=== PATIENT | male | born 1935 | race Caucasian/White ===

== ENCOUNTER 2017-10-05 13:05 | Inpatient (IN) | payer OTHER, MEDICARE ==
[~2017-10-05] VITALS: Ht 180.3 cm; Wt 78.0 kg
[~2017-10-05 13:05] MED LIST: ACETAMINOPHEN500 M4 PO; AMLODIPINE BESYL5 M1 PO; AMOXICILLIN500 M1 PO; ASPIRIN EC325 MG PO; ASPIRIN EC81 M1 PO; AVODART0.5 MG PO; BETHANECHOL CHL50 MG PO; CEFTRIAXONE1 GM IM; CEFUROXIME500 MG PO; CHOLESTYRAMINE P4 GM PO; CIPROFLOXACIN250 M1 PO; COUMADIN 4MG TAB4 MG PO; COUMADIN1 M1 PO; COUMADIN5 M2 PO; DULCOLAX10 M1 PR; DULCOLAX10 MG PR; ECOTRIN325 M1 PO; FERROUS GLUCON325 M1 PO; FERROUS SULFAT325 M1 PO; FERROUS SULFAT325 M3 PO; FLEET ENEMA PR; FLEET ENEMA133 ML PR; FLOMAX(MONOGRA0.4 MG PO; FLOMAX0.4 M1 PO; FLORASTOR250 M1 PO; FLORASTOR250 MG PO; FORTAZ1 G1 IV; IMODIUM 2 MG. CA2 MG PO; IMODIUM2 MG PO; IRON325 M3 PO; LOPRESSOR 12.12.5 MG PO; LOPRESSOR 25MG25 MG PO; LOVENOX40 MG/0.1 SC; METOPROLOL TART25 M1 PO; MILK OF MAGNESI30 ML PO; MIRALAX119 GM PO; MULTI-DAY VITA1 EACH PO; NATURAL BALANCE OPH; NORVASC5 M1 PO; NYSTATIN15 G1 TOP; PERCOCET 325 MG1 TA2 PO; PERCOCET 5-3251 EACH PO; QUESTRAN POWDE378 GM PO; QUESTRAN4 GM/9 GM PO; RENVELA800 M1 PO; SENNA PLUS TAB1 EACH PO; SODIUM BICARB325 MG PO; SODIUM BICARBO325 M1 PO; SODIUM BICARBO650 M1 PO; TYLENOL PR; TYLENOL325 M1 PO; TYLENOL325 MG; TYLENOL500 MG PO; Tears Natural OPH; ZINC SULFATE 2220 MG PO; ZINC SULFATE220 M2 PO; [UNRECOGNIZED DRUG - OTHER] TOP
[2017-10-05 13:52] LABS: ABSOLUTE BASOPHIL COUNT 0 /CUMM (0.0-0.2); ABSOLUTE EOSINOPHIL COUNT 0.2 /CUMM (0.0-0.7); ABSOLUTE GRANULOCYTE CT 26.3 /CUMM (1.4-6.5); ABSOLUTE MONOCYTE COUNT 1.3 /CUMM (0.10-0.60); BASOPHIL % 0.1 % (0.0-2.0); EOSINOPHIL % 0.6 % (0-5); GRANULOCYTE % 91.4 % (42.2-75.2); HEMATOCRIT 33.1 % (42-52); MEAN CORPUSCULAR HGB 32.8 PG (27.0-31.0); MEAN CORPUSCULAR HGB CONC 33.1 G/DL (33.0-37.0); MEAN PLATELET VOLUME 7.9 FL (7.4-10.4); PLATELET COUNT 250 /CUMM (130-400); RBC DISTRIBUTION WIDTH 15.5 % (11.5-14.5); RED BLOOD CELL CT 3.35 /CUMM (4.70-6.10); WHITE BLOOD CELL COUNT 28.7 /CUMM (4.8-10.8)
--- NOTE | 2017-10-05 14:14 | ED AMS/SEIZURE/WEAK/DIZZY ---
History of Present Illness General Chief Complaint: General Adult Stated Complaint: ABNORMAL LABS, COUGH, FEVER Source: patient, family, EMS Exam Limitations: clinical condition, poor historian Vital Signs & Intake/Output Vital Signs & Intake/Output Vital Signs Date Time Temp Pulse Resp B/P B/P Pulse O2 O2 Flow FiO2 Mean Ox Delivery Rate 10/06 0630 98.9 72 20 132/76 91 Room Air 10/05 2231 98.9 83 22 132/68 93 Room Air 10/05 1835 98.9 86 18 132/70 95 Room Air 10/05 1746 99.0 88 18 128/74 95 Room Air 10/05 1724 95 Room Air 10/05 1542 99.0 97 18 130/71 95 Room Air 10/05 1402 98.7 85 18 127/71 95 Nasal 2.0L Cannula 10/05 1327 97.7 85 20 159/68 96 Nasal 2.0L Cannula ED Intake and Output 10/06 0000 10/05 1200 Intake Total 1335 Output Total 890 Balance 445 Intake, IV 1335 Intake, Oral 0 Output, Stool 400 Output, Urine 490 Patient 173 lb Weight Weight Reported by Patient Measurement Method Allergies Coded Allergies: Penicillins (UNKNOWN 06/05/17) Reconcile Medications Amlodipine Besylate 5 MG TABLET 1 TAB PO DAILY HTN Aspirin (Ecotrin*) 81 MG TABLET.DR 1 TAB PO QAM HEART/BLOOD (Reported) Ceftazidime (Fortaz) 1 GRAM VIAL 1 GM IV DAILY UTI Ferrous Sulfate 325 MG (65 MG IRON) TABLET 1 TAB PO TID SUPPLEMENT (Reported) Metoprolol Tartrate 25 MG TABLET 0.5 TAB PO BID HEART Multivitamin (Multi-Day Vitamins) 1 EACH TABLET 1 TAB PO QAM SUPPLEMENT ( Reported) Nystatin 100,000 UNIT/GRAM CREAM..G. 1 SADIQ TOP APPLY TO SKIN candidial dermatitis apply 2 times a day. Sevelamer Carbonate (Renvela) 800 MG TABLET 1 TAB PO TIDWM KIDNEYS (Reported) Sodium Bicarbonate 325 MG TABLET 1,300 MG PO TID kidney failure Zinc Sulfate 220 MG TABLET 1 TAB PO QAM SUPPLEMENT (Reported) Triage Note: PT BIBA FROM REPLACED BY [facility] WITH MULTIPLE COMPLAINTS. PER EMS, PT HAD ABNORMAL WBC AND RENAL LABS WHICH PROMPTED THE CALL. PT DOES HAVE HX OF STAGE 4 KIDNEY DISEASE. PT REPORTS FEVERS, CHILLS, SLIGHT ABDOMINAL DISCOMFORT WHICH HE STATES ARE HIS USUAL SX OF UTI Triage Nurses Notes Reviewed? yes Onset: Gradual Duration: day(s): Timing: recent history Severity: moderate Severity Numbers: 7 Associated Symptoms: diaphoresis HPI: PATIENT IS A 81 Y/O MALE, PMH OF A-FIB, HYPERTENSION, UPPER GI BLEED, BOWEL OBSTRUCTION, BPH, CKD, ANEMIA, AND DVT, PRESENTING FROM [facility] WITH HIGH WBC (25) AND POTASSIUM (6.1). PATIENT STATES THAT HE FEELS VERY COLD AND THAT HE CANNOT STOP SHIVERING. IT HAS BEEN GOING ON FOR THE LAST FEW DAYS AND HAS GRADUALLY GOTTEN WORSE. HE HAS BEEN DIAPHORETIC SINCE TODAY BUT DENIES COUGH, SOB, CP, HEADACHE, DIZZINESS, ABDOMINAL PAIN, FLANK PAIN AND DYSURIA. PATIENT CURRENTLY HAS OSTOMY BACK WITH DARK GREEN OUTPUT AND A URINARY CATHERTER THAT HAS BEEN IN PLACE FOR ONE WEEK WITH CLOUDY YELLOW URINE. HIS DAUGHTER STATES THAT THIS IS THE TYPICAL PRESENTATION WITH PAST UTIs AND THAT HE HAS BECOME SEPTIC FROM UTI IN THE PAST. SHE STATES HIS UROLOGIST IS DR. NELSON. (Eduardo Ya) Past History Medical History Any Pertinent Medical History? 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 Hx Contributory? Yes (Eduardo Ya) Review of Systems Review of Systems Constitutional: Reports: chills, diaphoresis, fever, malaise, weakness. EENTM: Reports: no symptoms. Respiratory: Reports: no symptoms. Cardiovascular: Reports: no symptoms. GI: Reports: no symptoms. Genitourinary: Reports: no symptoms. Musculoskeletal: Reports: no symptoms. Skin: Reports: no symptoms. Neurological/Psychological: Reports: no symptoms. Hematologic/Endocrine: Reports: no symptoms. Immunologic/Allergic: Reports: no symptoms. All Other Systems: Reviewed and Negative (Eduardo Ya) Physical Exam Physical Exam General Appearance: well developed/nourished, awake, moderate distress Head: atraumatic, normal appearance Eyes: Bilateral: normal appearance, PERRL, EOMI. Ears, Nose, Throat: normal pharynx, normal ENT inspection Neck: normal inspection Respiratory: quiet respiration, decreased breath sounds, wheezing, respiratory distress Cardiovascular: irregularly irregular Peripheral Pulses: 2+ radial (R), 2+ radial (L) Gastrointestinal: normal bowel sounds, non-tender, no organomegaly Extremities: no pedal edema Neurologic/Psych: oriented x 3 Skin: intact, normal color, diaphoresis Core Measures ACS in differential dx? No CVA/TIA Diagnosis No Sepsis Present: No Sepsis Focused Exam Completed? Yes (Eduardo Ya) Progress Differential Diagnosis: arrythmia, alcohol intoxication, dehydration, electrolyte imbalance, pneumonia, sepsis, UTI/pyelo, influenza Plan of Care: Orders Procedure Date/time Status Regular Diet 10/06 B Active Change service to 10/06 0721 Active CBC WITHOUT DIFFERENTIAL 10/06 0600 Complete BASIC ELECTROLYTES PLUS BUN&CR 10/06 0600 Complete PT Evaluate & Treat 10/06 UNK Active Nursing Misc 10/06 UNK Active Rossi, Insertion/Removal/Asses 10/06 UNK Active PHYSICIAN CONSULT 10/06 UNK Active Vital Signs 10/05 2116 Active Teach/Educate 10/05 2116 Active Pain Treatment and Response 10/05 2116 Active Nutritional Intake, Monitor 10/05 2116 Active Isolation 10/05 2116 Active Intake & Output 10/05 2116 Active Patient Care Conference 10/05 2116 Active Activity/Ambulation 10/05 2116 Active Code Status 10/05 1925 Active Pathway - chart 10/05 1748 Active Saline Lock 10/05 1747 Active Pathway - chart 10/05 1747 Active House Staff 10/05 1747 Active LACTIC ACID 10/05 1612 Complete Patient Data 10/05 1610 Active ED Holding Orders 10/05 1602 Active Admit to inpatient 10/05 1602 Active Vital Signs 10/05 1602 Active Intake & Output 10/05 1544 Active FingerStick- Glucose 10/05 1541 Active Telemetry/Gut Carrier 10/05 1312 Complete RAPID VIRAL INFLUENZA A 10/05 1312 Complete CULTURE,URINE 10/05 1312 Active BLOOD CULTURE 10/05 1312 Active URINALYSIS 10/05 1312 Complete TROPONIN LEVEL 10/05 1312 Complete LACTIC ACID 10/05 1312 Complete COMPREHENSIVE METABOLIC PANEL 10/05 1312 Complete CBC WITHOUT DIFFERENTIAL 10/05 1312 Complete EKG 10/05 1312 Active VTE Mechanical Prophylaxis 10/05 UNK Active Current Medications Sig/Delicia Start time Last Medication Dose Stop Time Status Admin Artificial Tears 2 GTT 4 TIMES/DAY PRN 10/06 1130 AC (Tears Natural) Ceftazidime 1,000 MG Q24 10/06 1000 AC 10/06 (Fortaz) 1012 Sodium Bicarbonate 1,300 MG TID 10/06 1000 AC 10/06 (Sodium Bicarb 325MG 1010 Tab) Zinc Sulfate 220 MG DAILY 10/06 1000 AC 10/06 (Zinc Sulfate) 1010 Sevelamer Carbonate 800 MG WM 10/06 0800 AC 10/06 (Renvela) 0854 Heparin Sodium 5,000 UNIT Q8 10/05 2200 AC 10/06 (Porcine) 0531 Acetaminophen 650 MG Q6P PRN 10/05 1800 AC (Tylenol) Acetaminophen 1,000 MG Q6P PRN 10/05 1800 AC (Ofirmev) Hydromorphone HCl 0.5 MG Q6-PRN PRN 10/05 1800 AC 10/06 (Dilaudid) 1044 Laboratory Tests 10/06/17 0800: Anion Gap 13, Estimated GFR 19 L, BUN/Creatinine Ratio 15.3, CBC w Diff NO MAN DIFF REQ, RBC 2.83 L, MCV 98.0 H, MCH 32.8 H, RDW 15.6 H, MPV 8.5, Gran % 81.8 H, Lymphocytes % 5.2 L, Monocytes % 5.5, Eosinophils % 7.3 H, Basophils % 0.2, Absolute Granulocytes 15.6 H, Absolute Lymphocytes 1.0 L, Absolute Monocytes 1.0 H, Absolute Eosinophils 1.4, Absolute Basophils 0, PUBS MCHC 33.5 10/06/17 0120: Lactic Acid 0.8 10/05/17 1616: Urine Color YEL, Urine Clarity CLDY H, Urine pH 6.0, Ur Specific [place] 1.025, Urine Protein 100 H, Urine Ketones NEG, Urine Nitrite NEG, Urine Bilirubin NEG, Urine Urobilinogen 0.2, Ur Leukocyte Esterase MOD H, Ur Microscopic SEDIMENT EXAMINED, Urine RBC 5-10 H, Urine WBC > 75 H, Ur Epithelial Cells RARE, Urine Bacteria MANY H, Urine Hemoglobin MOD H, Urine Glucose NEG 10/05/17 1339: Anion Gap 13, Estimated GFR 19 L, BUN/Creatinine Ratio 15.6, Glucose 75, Lactic Acid 1.5, Calcium 8.8, Total Bilirubin 0.5, AST 19, ALT 27, Alkaline Phosphatase 83, Troponin I 0.05, Total Protein 6.6, Albumin 3.6, Globulin 3.0, Albumin/ Globulin Ratio 1.2, CBC w Diff MAN DIFF ORDERED, RBC 3.35 L, MCV 99.0 H, MCH 32.8 H, RDW 15.5 H, MPV 7.9, Gran % 91.4 H, Lymphocytes % 3.5 L, Monocytes % 4.4, Eosinophils % 0.6, Basophils % 0.1, Absolute Granulocytes 26.3 H, Segmented Neutrophils 83 H, Band Neutrophils 11 H, Absolute Lymphocytes 1.0 L , Lymphocytes 3 L, Monocytes 3, Absolute Monocytes 1.3 H, Absolute Eosinophils 0.2, Absolute Basophils 0, Platelet Estimate ADEQUATE, Hypochromic-Microcytic 1+ , Anisocytosis 1+, PUBS MCHC 33.1 Microbiology 10/05 1616 URINE ROUT: Urine Culture - RES GRAM NEGATIVE RODS 10/05 1602 NASOPHARYN: Influenza Virus A & B Rapid Smear - COMP 10/05 1432 BLOOD: Blood Culture - [facility] 10/05 1339 BLOOD: Blood Culture - [facility] Diagnostic Imaging: Viewed by Me: Radiology Read. Discussed w/RAD: Radiology Read. Radiology Impression: PATIENT: BENITEZ PEREIRA SR PRESENT AGE: 81 PATIENT ACCOUNT NO: [id number] : 33 LOCATION: [facility] ORDERING PHYSICIAN: Eduardo BROWN SERVICE DATE: 10/05/17-1311 EXAM TYPE : RAD - XRY-PORTABLE CHEST XRAY EXAMINATION: XR PORTABLE CHEST CLINICAL INFORMATION: Cough and fever. Shortness of breath. COMPARISON: Chest x-ray 08/28. CT chest 08/03/2016 . Chest x-ray 02/13/2016, 12/23/2015 TECHNIQUE: Portable frontal view of the chest was obtained. 3:39 PM FINDINGS: Emphysematous hyperinflation of lungs with flattening of the diaphragm. There is no acute abnormality. No pulmonary vascular congestion. No focal consolidation or pleural effusion. Heart size is enlarged. There is vascular wall calcifications of aorta. There is ectatic great vessels as etiology for the mild prominence of the right paratracheal stripe. There is foreshortening of the distal right clavicle. This is chronic unchanged since multiple prior studies. IMPRESSION: No acute abnormality the chest. DICTATED BY: Virgilio Solis MD DATE/TIME DICTATED:10/05/171607 STEWARD/STEWARDESS DECK:VIRGILIO DATE/TIME TRANSCRIBED:10/05/171607 CONFIDENTIAL, DO NOT COPY WITHOUT APPROPRIATE AUTHORIZATION. <Electronically signed in Other Vendor System> SIGNED BY: Virgilio Solis MD 10/05/17 1616 Initial ED EKG: NSR, rate (102) (Eduardo Ya) Departure Departure Disposition: STILL A PATIENT Condition: Stable Clinical Impression Primary Impression: UTI (urinary tract infection) Secondary Impressions: Leukocytosis Referrals: Varun VILLA,Emily Jiménez (PCP/Family) Departure Forms: Customer Survey General Discharge Information Admission Note Spoke With: Franky Mccall MD Documentation of Exam: Documentation of any treatments & extenuating circumstances including Concerns Regarding Discharge (functional status, medication knowledge or non-compliance, living conditions, etc.) that warrant an admission rather than observation: Patient will require IV antibiotics. IV fluids. Repeat labs. Elevated white blood cell count. Patient is having Rynearson chills. Diaphoresis in the room. High risk. Patient do poorly as an outpatient. (Eduardo Ya) PA/MILITARY SOURCE OPERATIONS OFFICER Co-Sign Statement Statement: ED Attending supervision documentation- [X] I saw and evaluated the patient. I have also reviewed all the pertinent lab results and diagnostic results. I agree with the findings and the plan of care as documented in the PA's/MILITARY SOURCE OPERATIONS OFFICER's documentation. [x] I have reviewed the ED Record and agree with the PA's/MILITARY SOURCE OPERATIONS OFFICER's documentation. [] Additions or exceptions (if any) to the PAs/MILITARY SOURCE OPERATIONS OFFICER's note and plan are summarized below: [] (Ej MD,Wendy)
--- NOTE | 2017-10-05 16:16 | RADIOLOGY REPORT ---
EXAMINATION: XR PORTABLE CHEST CLINICAL INFORMATION: Cough and fever. Shortness of breath. COMPARISON: Chest x-ray 08/28/2017. CT chest 08/03/2016 . Chest x-ray 02/13/2016, 12/23/2015 TECHNIQUE: Portable frontal view of the chest was obtained. 3:39 PM FINDINGS: Emphysematous hyperinflation of lungs with flattening of the diaphragm. There is no acute abnormality. No pulmonary vascular congestion. No focal consolidation or pleural effusion. Heart size is enlarged. There is vascular wall calcifications of aorta. There is ectatic great vessels as etiology for the mild prominence of the right paratracheal stripe. There is foreshortening of the distal right clavicle. This is chronic unchanged since multiple prior studies. IMPRESSION: No acute abnormality the chest.
--- NOTE | 2017-10-05 17:22 | History & Physical ---
[facility]22: General Information and HPI MD Statement: I have seen and personally examined BENITEZ PEREIRA SR and documented this H&P. The patient is a 81 year old M who presented with a patient stated chief complaint of [FEVER, ABNORMAL LABS]. Source of Information: patient, family, old records Exam Limitations: no limitations History of Present Illness: Patient is 81-year-old male with past medical history significant for Parkinson' s disease,BPH status post TURP and chronic Rossi's catheter due to neurogenic bladder, stage V CK D refusing dialysis, history of hydronephrosis status post ureteral stent, history of sigmoid volvulus status post subtotal colectomy, ileostomy and bilateral hernia repair in 2016, bilateral hip replacement came in from [facility] to be evaluated for abnormal lab, shaking chills and fever. Allergies/Medications Allergies: Coded Allergies: Penicillins (UNKNOWN 06/05/17) Home Med list Amlodipine Besylate 5 MG TABLET 1 TAB PO DAILY HTN Aspirin (Ecotrin*) 81 MG TABLET.DR 1 TAB PO QAM HEART/BLOOD (Reported) Ceftazidime (Fortaz) 1 GRAM VIAL 1 GM IV DAILY UTI Ferrous Sulfate 325 MG (65 MG IRON) TABLET 1 TAB PO TID SUPPLEMENT (Reported) Metoprolol Tartrate 25 MG TABLET 0.5 TAB PO BID HEART Multivitamin (Multi-Day Vitamins) 1 EACH TABLET 1 TAB PO QAM SUPPLEMENT ( Reported) Nystatin 100,000 UNIT/GRAM CREAM..G. 1 SADIQ TOP APPLY TO SKIN candidial dermatitis apply 2 times a day. Sevelamer Carbonate (Renvela) 800 MG TABLET 1 TAB PO TIDWM KIDNEYS (Reported) Sodium Bicarbonate 325 MG TABLET 1,300 MG PO TID kidney failure Zinc Sulfate 220 MG TABLET 1 TAB PO QAM SUPPLEMENT (Reported) Past History Travel History Traveled to [place] past 21 day No Medical History Neurological: NONE EENT: NONE Cardiovascular: AFIB, hypertension Respiratory: NONE Gastrointestinal: upper GI bleed, BOWEL OBSTRUCTION COLOSTOMY PLACEMENT Hepatic: NONE Renal: benign prost hyperplasia, CHRONIC KIDNEY DISEASE HYDRONEPHROSIS Musculoskeletal: BILAT HIP FX'S (L HIP) Psychiatric: NONE Endocrine: NONE Blood Disorders: anemia, DVT Cancer(s): melanoma 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 Psychosocial History Who Do You Live With? self Services at Home: Home Health Aide, Nursing Primary Language: Panamanian ETOH Use: denies use Illicit Drug Use: denies illicit drug use Functional Ability ADLs Independent: dressing, eating, toileting, bathing. Ambulation: walker IADLs Needs Assist: shopping, housework, finances, food prep, telephone, transportation, medication admin. Review of Systems Review of Systems Constitutional: Reports: chills, fever, malaise. EENTM: Reports: no symptoms. Cardiovascular: Reports: no symptoms. Respiratory: Reports: no symptoms. Genitourinary: Reports: no symptoms. Musculoskeletal: Reports: neck pain. Exam & Diagnostic Data Last 24 Hrs of Vital Signs/I&O Vital Signs Date Time Temp Pulse Resp B/P B/P Pulse O2 O2 Flow FiO2 Mean Ox Delivery Rate 10/06 0630 98.9 72 20 132/76 91 Room Air 10/05 2231 98.9 83 22 132/68 93 Room Air 10/05 1835 98.9 86 18 132/70 95 Room Air 10/05 1746 99.0 88 18 128/74 95 Room Air 10/05 1724 95 Room Air 10/05 1542 99.0 97 18 130/71 95 Room Air 10/05 1402 98.7 85 18 127/71 95 Nasal 2.0L Cannula 10/05 1327 97.7 85 20 159/68 96 Nasal 2.0L Cannula Intake & Output 10/06 0800 10/06 0000 10/05 1600 Intake Total 1225 110 Output Total 890 Balance 335 110 Intake, IV 1225 110 Intake, Oral 0 Output, Stool 400 Output, Urine 490 Patient 173 lb Weight Weight Reported by Patient Measurement Method Physical Exam General Appearance Alert, Oriented X3, Cooperative, Severe Distress, Rigors Assessment/Plan Assessment: Patient is 81-year-old male with past medical history significant for Parkinson' s disease,BPH status post TURP and chronic Rossi's catheter due to neurogenic bladder, stage V CK D refusing dialysis, history of hydronephrosis status post ureteral stent, history of sigmoid volvulus status post subtotal colectomy, ileostomy and bilateral hernia repair in 2016, bilateral hip replacement came in from [facility] to be evaluated for abnormal lab, shaking chills and fever. Admitted for Rossi associated UTI Assessment: # Sepsis 2/2 Rossi associated urinary tract infection #Hyperkalemia: #CK D stage V #History of hypertension #History of BPH status post TURP #History of neurogenic bladder with indwelling Rossi's catheter #History of Parkinson's disease #History of sigmoid volvulus status post subtotal ileostomy Plan: * Admitt to general medicine floor * Will continue Ceftazedime (He grews Pesudomonas last admission on last admission at august, * Urine and blood culture sent by ED please F/U * f/u lactic acid * Will gently hydrate with IV NS * Will repeat labs at am * Please confirm medication at am, no W-10 found on the chart when I saw the patient * Will hold on antihypertensive medication (Metoprolol and Amlodipine) * Urology consult with Dr. Mercado * Consider nephrology consult (His cordwood cutter helper is ) * Pain amangement * DVT ppx with SC Heparin * FULL CODE As Ranked By This Provider Problem List: 1. UTI (lower urinary tract infection) 2. Sepsis 3. Hyperkalemia Core Measures/Misc (06/06) Acute Coronary Syndrome ACS Diagnosis: No Congestive Heart Failure Congestive Heart Failure Diagnosis No Cerebrovascular Accident CVA/TIA Diagnosis: No VTE (View Protocol) VTE Risk Factors Acute Medical Illness No Mechanical VTE Prophylaxis d/t N/A MechProphylax Ordered No VTE Pharm Prophylaxis d/t NA PharmProphylax ordered Sepsis (View protocol) Sepsis Present: Yes Franky Mccall MD 10/05/172027: Attending MD Review Statement Attending Statement Attending MD Statement: examined this patient, discuss w/resident/PA/STORE SALES LEADER, agreed w/resident/PA/STORE SALES LEADER, reviewed EMR data (avail) Attending Assessment/Plan: 81M PMH Parkinson's disease,BPH status post TURP and chronic Rossi's catheter due to neurogenic bladder, stage V CK D refusing dialysis, history of hydronephrosis status post ureteral stent, history of sigmoid volvulus status post subtotal colectomy, recurrent UTI's most recently growing Pseudomonas, presenting with 1 day of fatigue, weakness, and chills, found to have UA indicative of UTI with WBC 28, afebrile, stable vitals. Patient has no complaints other than wanting to sleep and having chills. Exam benign. 1. Sepsis seconadry to UTI 2. Chronic Rossi catheter 3. Neurogenic bladder 4. CKD stage V Plan - Admit to general medicine - Start Ceftazidime - Fluids only if hypotensive - Stop anti-hypertensives - Urine and blood cultures - Continue remaining home medications - DVT PPx
--- NOTE | 2017-10-05 20:30 | Admission Certification ---
Admission Certification Certification Statement - As attending physician, I certify that at the time of - admission, based on clinical presentation, severity of - symptoms, need for further diagnostic testing and - therapeutic interventions, and risk of adverse outcomes - without in-hospital treatment, in my clinical assessment, - this patient requires an acute hospital stay for a minimum - of two nights or longer. I have also considered psychsocial - factors such as support system, advanced age, financial - issues, cognitive issues, and failed out-patient treatments, - past re-admission history, safety of patient, and lack of - compliance as applicable. Specific rationale supporting this admission is: Sepsis secondary to UTI
[2017-10-05 22:31] VITALS: BP 132/68
[2017-10-06 06:30] VITALS: BP 132/76
[2017-10-06 08:52] LABS: ABSOLUTE BASOPHIL COUNT 0 /CUMM (0.0-0.2); ABSOLUTE EOSINOPHIL COUNT 1.4 /CUMM (0.0-0.7); ABSOLUTE GRANULOCYTE CT 15.6 /CUMM (1.4-6.5); BASOPHIL % 0.2 % (0.0-2.0); EOSINOPHIL % 7.3 % (0-5); GRANULOCYTE % 81.8 % (42.2-75.2); MEAN CORPUSCULAR HGB 32.8 PG (27.0-31.0); MEAN CORPUSCULAR HGB CONC 33.5 G/DL (33.0-37.0); MEAN PLATELET VOLUME 8.5 FL (7.4-10.4); PLATELET COUNT 198 /CUMM (130-400); RBC DISTRIBUTION WIDTH 15.6 % (11.5-14.5); RED BLOOD CELL CT 2.83 /CUMM (4.70-6.10)
[2017-10-06 09:22] LABS: HEMATOCRIT 27.8 % (42-52)
--- NOTE | 2017-10-06 10:02 | PN- Housestaff ---
Walter VILLA,Vianney 10/06/17 1002: Subjective Subjective: states that he has full body aches but other than that no complaints Review of Systems Constitutional: Reports: see HPI, malaise, weakness. Musculoskeletal: Reports: muscle pain. Objective Last 24 Hrs of Vital Signs/I&O Vital Signs Date Time Temp Pulse Resp B/P B/P Pulse O2 O2 Flow FiO2 Mean Ox Delivery Rate 10/06 1722 78 130/78 10/06 1722 78 132/82 10/06 1521 98.6 72 18 140/95 91 10/06 1327 Room Air 10/06 1308 Room Air 2.0L 10/06 0630 98.9 72 20 132/76 91 Room Air 10/05 2231 98.9 83 22 132/68 93 Room Air Intake & Output 10/06 1600 10/06 0800 10/06 0000 Intake Total 7579 997 1169 Output Total 2850 300 890 Balance -1850 -100 335 Intake, IV 1225 Intake, Oral 1000 200 0 Output, Stool 1200 300 400 Output, Urine 1650 490 Patient 173 lb Weight Weight Reported by Patient Measurement Method Physical Exam General Appearance: Alert, Oriented X3, Cooperative, Mild Distress Skin: No Rashes HEENT: Atraumatic Cardiovascular: Regular Rate, Normal S1, Normal S2, No Murmurs Lungs: Clear to Auscultation, Normal Air Movement Abdomen: Normal Bowel Sounds, Soft Extremities: No Edema, Normal Pulses, No Tenderness/Swelling Current Medications: Current Medications Sig/Delicia Start time Last Medication Dose Route Stop Time Status Admin Acetaminophen 650 MG Q6P PRN 10/05 1800 AC PO Acetaminophen 1,000 MG Q6P PRN 10/05 1800 AC IV Amlodipine Besylate 5 MG DAILY 10/06 1423 AC 10/06 PO 1722 Artificial Tears 2 GTT 4 TIMES/DAY PRN 10/06 1130 AC OPH Aspirin 81 MG DAILY 10/06 1600 AC 10/06 PO 1917 Carbidopa/Levodopa 1 TAB BID 10/06 1502 AC 10/06 PO 1921 Ceftazidime 1,000 MG Q24 10/06 1000 AC 10/06 IV 1012 Heparin Sodium 5,000 UNIT Q8 10/05 2200 10/06 (Porcine) SC 1307 Hydromorphone HCl 0.5 MG Q6-PRN PRN 10/05 1800 AC 10/06 IV 1044 Metoprolol Succinate 25 MG DAILY 10/06 1503 AC 10/06 PO 1722 Sevelamer Carbonate 800 MG WM 10/06 0800 AC 10/06 PO 1721 Sodium Bicarbonate 1,300 MG TID 10/06 1000 AC 10/06 PO 1722 Sodium Chloride 1,000 ML Q13H 10/05 1800 DC 10/05 IV 1833 Zinc Sulfate 220 MG DAILY 10/06 1000 AC 10/06 PO 1010 Last 24 Hrs of Lab/Arturo Results Last 24 Hrs of Labs/Mics: Laboratory Tests 10/06/17 0800: Anion Gap 13, Estimated GFR 19 L, BUN/Creatinine Ratio 15.3, CBC w Diff NO MAN DIFF REQ, RBC 2.83 L, MCV 98.0 H, MCH 32.8 H, RDW 15.6 H, MPV 8.5, Gran % 81.8 H, Lymphocytes % 5.2 L, Monocytes % 5.5, Eosinophils % 7.3 H, Basophils % 0.2, Absolute Granulocytes 15.6 H, Absolute Lymphocytes 1.0 L, Absolute Monocytes 1.0 H, Absolute Eosinophils 1.4, Absolute Basophils 0, PUBS MCHC 33.5 10/06/17 0120: Lactic Acid 0.8 Assessment/Plan Assessment: sacral decubitus ulcers stage 1 and II - consult with wound care dr. lozano. Pain Location: generalized Pain Plan: prn Tomorrow's Labs & Rationales: cbc bep Reyna Aaron 10/06/17 1348: Attending MD Review Statement Attending Statement Attending MD Statement: examined this patient, discuss w/resident/PA/FRONT DESK ASSISTANT, agreed w/resident/PA/FRONT DESK ASSISTANT, discussed with family, reviewed EMR data (avail), discussed with nursing, discussed with case mgmt, reviewed images, amended to note Attending Assessment/Plan: 81 o/m with pmh Parkinson's disease,BPH status post TURP and chronic Neri's catheter due to neurogenic bladder, stage V CK D refusing dialysis, history of hydronephrosis status post ureteral stent, history of sigmoid volvulus status post subtotal colectomy, recurrent UTI's most recently growing Pseudomonas, presenting with 1 day of fatigue, weakness, and chills admitted with sepsis 2/2 UTI catheter associated with neurogenic bladder and CKD. Cr 3.2 Patient seen/examined bedside. Patient denies fever. His WBC has been improving trending down. Patient is on antibiotics empiric as per previous culture sensitivity. Follow urine culture. Urology consulted and recommend removal of neri catheter and placement of suprapubic. Wound consulted for sacral decubitius ulcer present on admission. Resume home meds. Antihypertensives resume as able. Aileen VILLA,[facility] 10/06/17 6952: Subjective Follow-up For: CAUTI stage V CKD HTN BPH s/p TURP Neurogenic bladder with indwelling neri Parkinsons disease Subjective: Patient was seen and examined Review of Systems Constitutional: Reports: see HPI. Objective Last 24 Hrs of Vital Signs/I&O Vital Signs Date Time Temp Pulse Resp B/P B/P Pulse O2 O2 Flow FiO2 Mean Ox Delivery Rate 10/06 1722 78 130/78 10/06 1722 78 132/82 10/06 1521 98.6 72 18 140/95 91 10/06 1327 Room Air 10/06 1308 Room Air 2.0L 10/06 0630 98.9 72 20 132/76 91 Room Air 10/05 2231 98.9 83 22 132/68 93 Room Air 10/05 1835 98.9 86 18 132/70 95 Room Air Intake & Output 10/06 1600 10/06 0800 10/06 0000 Intake Total 3227 593 4288 Output Total 2850 300 890 Balance -1850 -100 335 Intake, IV 1225 Intake, Oral 1000 200 0 Output, Stool 1200 300 400 Output, Urine 1650 490 Patient 78.471 kg Weight Weight Reported by Patient Measurement Method Physical Exam General Appearance: Alert Assessment/Plan Assessment: Patient is 81-year-old male with past medical history significant for Parkinson' s disease,BPH status post TURP and chronic Neri's catheter due to neurogenic bladder, stage V CK D refusing dialysis, history of hydronephrosis status post ureteral stent, history of sigmoid volvulus status post subtotal colectomy, ileostomy and bilateral hernia repair in 2016, bilateral hip replacement came in from [facility] to be evaluated for abnormal lab, shaking chills and fever. Admitted for Neri associated UTI Admitted to general medicine floor Problem list 1. Neri associated urinary tract infection 2. Hyperkalemia: 3. CKD stage V 4. History of HTN 5. History of BPH s/p TURP 6. neurogenic bladder with indwelling Neri's catheter 7. History of Parkinson's disease 8. History of sigmoid volvulus status post subtotal ileostomy CAUTI - catheter associated UTI patient had recurrent infections in the past 6 months and grew pseudomonas resistant to ciprofloxacin. Started on ceftaz IV Q24hrs as per renal dosing. Cultures were pending. Intially hydrated with 2L NS, as Blood pressure remained stable discontinued fluids. Urology consulted due to recurrent infections. Hyperkalemia Found to have K of 6.1 in the facility - treated with kayexalate, Dextrose/ insulin, Calcium gluconate. Repeat K today is 4.8. Chronic indwelling neri catheter We removed neri as it is draining purulent urine. started on straight cath protocol. Neurogenic bladder was consulted who suggested to place a suprapubic catheter as it is associated with lower risk for infections. This need to be further discussed with family. History of parkinsons disease Continue sinamet 25/100mg BID History of HTN Continue amlodipine and ASA 81mg stage V CKD patient refused dialysis. Medically managed with sodium biacrbonate 1300mg TID and sevelamir 800mg WM PO. DVT prophylaxis SC heparin Code status full code Problem List: 1. Leukocytosis 2. SIRS (systemic inflammatory response syndrome) 3. Sepsis due to urinary tract infection 4. Neurogenic bladder Pain Ratin Pain Goal: Pain 4 or less
--- NOTE | 2017-10-06 11:45 | Cons- Wound Care ---
General Information and HPI Consulting Request Date of Consult: 10/06/17 Requested By: Reyna Aaron MD Reason for Consult: Bilateral stage I pressure ulcers present on admission History of Present Illness: Patient is an 81-year-old with Parkinson's disease chronic kidney disease chronic Rossi admitted for sepsis urologic origin and found to have bilateral buttock pressure ulcers. He Reports having had these in the [facility]. Allergies/Medications Allergies: Coded Allergies: Penicillins (UNKNOWN 06/05/17) Home Med List: Amlodipine Besylate 5 MG TABLET 1 TAB PO DAILY HTN Aspirin (Ecotrin*) 81 MG TABLET.DR 1 TAB PO QAM HEART/BLOOD (Reported) Ceftazidime (Fortaz) 1 GRAM VIAL 1 GM IV DAILY UTI Ferrous Sulfate 325 MG (65 MG IRON) TABLET 1 TAB PO TID SUPPLEMENT (Reported) Metoprolol Tartrate 25 MG TABLET 0.5 TAB PO BID HEART Multivitamin (Multi-Day Vitamins) 1 EACH TABLET 1 TAB PO QAM SUPPLEMENT ( Reported) Nystatin 100,000 UNIT/GRAM CREAM..G. 1 SADIQ TOP APPLY TO SKIN candidial dermatitis apply 2 times a day. Sevelamer Carbonate (Renvela) 800 MG TABLET 1 TAB PO TIDWM KIDNEYS (Reported) Sodium Bicarbonate 325 MG TABLET 1,300 MG PO TID kidney failure Zinc Sulfate 220 MG TABLET 1 TAB PO QAM SUPPLEMENT (Reported) Past History Travel History Traveled to [place] past 21 day No Medical History Blood Transfusion Hx: Yes Neurological: NONE EENT: NONE Cardiovascular: AFIB, hypertension Respiratory: NONE Gastrointestinal: upper GI bleed, BOWEL OBSTRUCTION COLOSTOMY PLACEMENT Hepatic: NONE Renal: benign prost hyperplasia, CHRONIC KIDNEY DISEASE HYDRONEPHROSIS Musculoskeletal: BILAT HIP FX'S (L HIP) Psychiatric: NONE Endocrine: NONE Blood Disorders: anemia, DVT Cancer(s): melanoma 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 Psychosocial History Who Do You Live With? self Services at Home: Home Health Aide, Nursing Primary Language: Swazi Smoking Status: Never Smoked ETOH Use: denies use Illicit Drug Use: denies illicit drug use Functional Ability ADLs Independent: dressing, eating, toileting, bathing. Ambulation: walker IADLs Needs Assist: shopping, housework, finances, food prep, telephone, transportation, medication admin. Exam & Diagnostic Data Vital Signs and I&O Vital Signs Result Date Time Pulse Ox 91 10/06 629 B/P 132/76 10/06 629 O2 Delivery Room Air 10/06 629 Temp 98.9 10/06 06 Pulse 72 10/06 0630 Resp 20 10/06 629 O2 Flow Rate 2.0L 10/05 1402 Intake & Output 10/06 0000 10/05 1600 10/05 0800 Intake Total 1225 110 Output Total 890 Balance 335 110 Intake, IV 1225 110 Intake, Oral 0 Output, Stool 400 Output, Urine 490 Patient 173 lb Weight Weight Reported by Patient Measurement Method Exam of the right buttock shows there to be an extensive area of erythema measuring approximately 18 x 15 cm over the right buttock and extending over the left buttock approximately 10 x 10 cm within the area of the left buttock are several small minute excoriations which may be areas of stage II pressure ulceration there is no undermining or sinus tracking or suggestion of soft tissue skin infection Assessment/Plan Impression/Plan: 81-year-old gentleman multiple medical problems admitted for sepsis urologic origin in this found to have a large areas of stage I pressure ulceration present on admission. There may be several minute areas that might be stage II as well. Recommend low air loss mattress use of barrier cream and frequent repositioning to offload the areas. Consult Acknowledgment - Thank you for your consult request.
--- NOTE | 2017-10-06 12:33 | Cons- Urology ---
General Information and HPI Consulting Request Date of Consult: 10/06/17 Requested By: Galen VILLA,Reyna Reason for Consult: Recurrent urosepsis Source of Information: patient, family, old records Exam Limitations: no limitations History of Present Illness: This patient has an atrophic R kidney and a functioning L kidney and has CKD with a baseline creatinine of about 3.0. After surgery for a sigmoid volvulus in 2014 his creatinine dex to 5 and he underwent an extensive urologic w/u. He was found to have a neurogenic bladder and no evidence of bladder outlet obstruction. He has L vesico-ureteral reflux and his creatinine rises if his bladder is not well drained. Since then he has been managed with an indwelling neri and his renal fxn has remained stable at 3.2. However he has had several hospital admission for urosepsis. He was again admitted yesterday with signs of urosepsis and a WBC count of 28k. Urine analysis showed pyuria and many bacterial. His wbc count this AM is down to 19 k. Allergies/Medications Allergies: Coded Allergies: Penicillins (UNKNOWN 06/05/17) Home Med List: Amlodipine Besylate 5 MG TABLET 1 TAB PO DAILY HTN Aspirin (Ecotrin*) 81 MG TABLET.DR 1 TAB PO QAM HEART/BLOOD (Reported) Ceftazidime (Fortaz) 1 GRAM VIAL 1 GM IV DAILY UTI Ferrous Sulfate 325 MG (65 MG IRON) TABLET 1 TAB PO TID SUPPLEMENT (Reported) Metoprolol Tartrate 25 MG TABLET 0.5 TAB PO BID HEART Multivitamin (Multi-Day Vitamins) 1 EACH TABLET 1 TAB PO QAM SUPPLEMENT ( Reported) Nystatin 100,000 UNIT/GRAM CREAM..G. 1 SADIQ TOP APPLY TO SKIN candidial dermatitis apply 2 times a day. Sevelamer Carbonate (Renvela) 800 MG TABLET 1 TAB PO TIDWM KIDNEYS (Reported) Sodium Bicarbonate 325 MG TABLET 1,300 MG PO TID kidney failure Zinc Sulfate 220 MG TABLET 1 TAB PO QAM SUPPLEMENT (Reported) Current Medications: Current Medications Sig/Delicia Start time Last Medication Dose Route Stop Time Status Admin Acetaminophen 650 MG Q6P PRN 10/05 1800 AC PO Acetaminophen 1,000 MG Q6P PRN 10/05 1800 AC IV Artificial Tears 2 GTT 4 TIMES/DAY PRN 10/06 1130 AC OPH Calcium Gluconate 0 .STK-MED ONE 10/05 1424 DC IV Calcium Gluconate 1 GM ONCE ONE 10/05 1400 DC 10/05 Sodium Chloride 100 ML IV 10/05 1459 1454 Ceftazidime 1,000 MG Q24 10/06 1000 AC 10/06 IV 1012 Ceftazidime 0 .STK-MED ONE 10/05 1412 DC .ROUTE Ceftazidime 1,000 MG ONCE ONE 10/05 1400 DC 10/05 IV 10/05 1401 1458 Dextrose 25 GM ONCE ONE 10/05 1400 DC 10/05 IV 10/05 1401 1454 Heparin Sodium 5,000 UNIT Q8 10/05 2200 AC 10/06 (Porcine) SC 0531 Hydromorphone HCl 0.5 MG Q6-PRN PRN 10/05 1800 AC 10/06 IV 1044 Insulin Human Regular 10 UNITS ONCE ONE 10/05 1400 DC 10/05 IV 10/05 1401 1456 Sevelamer Carbonate 800 MG WM 10/06 0800 AC 10/06 PO 0854 Sodium Bicarbonate 1,300 MG TID 10/06 1000 AC 10/06 PO 1010 Sodium Chloride 1,000 ML Q13H 10/05 1800 DC 10/05 IV 1833 Sodium Chloride 1,000 ML BOLUS ONE 10/05 1400 DC 10/05 IV 10/05 1459 1533 Sodium Polystyrene 0 .STK-MED ONE 10/05 1412 DC Sulfonate .ROUTE Sodium Polystyrene 60 ML ONCE ONE 10/05 1400 DC 10/05 Sulfonate PO 10/05 1401 1455 Zinc Sulfate 220 MG DAILY 10/06 1000 AC 10/06 PO 1010 Past History Medical History Blood Transfusion Hx: Yes Neurological: NONE EENT: NONE Cardiovascular: AFIB, hypertension Respiratory: NONE Gastrointestinal: upper GI bleed, BOWEL OBSTRUCTION COLOSTOMY PLACEMENT Hepatic: NONE Renal: benign prost hyperplasia, CHRONIC KIDNEY DISEASE HYDRONEPHROSIS Musculoskeletal: BILAT HIP FX'S (L HIP) Psychiatric: NONE Endocrine: NONE Blood Disorders: anemia, DVT Cancer(s): melanoma 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 Psychosocial History Who Do You Live With? self Services at Home: Home Health Aide, Nursing Primary Language: Latvian Smoking Status: Never Smoked ETOH Use: denies use Illicit Drug Use: denies illicit drug use Functional Ability ADLs Independent: dressing, eating, toileting, bathing. Ambulation: walker IADLs Needs Assist: shopping, housework, finances, food prep, telephone, transportation, medication admin. Exam & Diagnostic Data Vital Signs and I&O Vital Signs Date Time Temp Pulse Resp B/P B/P Pulse O2 O2 Flow FiO2 Mean Ox Delivery Rate 10/06 0630 98.9 72 20 132/76 91 Room Air 10/05 2231 98.9 83 22 132/68 93 Room Air 10/05 1835 98.9 86 18 132/70 95 Room Air 10/05 1746 99.0 88 18 128/74 95 Room Air 10/05 1724 95 Room Air 10/05 1542 99.0 97 18 130/71 95 Room Air 10/05 1402 98.7 85 18 127/71 95 Nasal 2.0L Cannula 10/05 1327 97.7 85 20 159/68 96 Nasal 2.0L Cannula Intake & Output 10/06 1600 10/06 0800 10/06 0000 10/05 1600 10/05 0800 10/05 0000 Intake Total 200 1225 110 Output Total 1000 300 890 Balance -1000 -100 335 110 Intake, IV 1225 110 Intake, Oral 200 0 Output, Stool 300 400 Output, Urine 1000 490 Patient 173 lb Weight Weight Reported by Patient Measurement Method Lying in bed. No acute distress Back: No CVA tenderness Abd: Colostomy in RLQ. Midline incision is well healed. Soft and non tender Genitalia: neri in place draining clear urine. Some ventral erosion of distal urethra Laboratory Tests 10/06 10/06 0800 0120 Chemistry Sodium (137 - 145 mmol/L) 138 Potassium (3.5 - 5.1 mmol/L) 4.8 Chloride (98 - 107 mmol/L) 106 Carbon Dioxide (22 - 30 mmol/L) 19 L Anion Gap (5 - 16) 13 BUN (9 - 20 mg/dL) 49 H Creatinine (0.7 - 1.2 mg/dL) 3.2 H Estimated GFR (>60 ml/min) 19 L BUN/Creatinine Ratio (7 - 25 %) 15.3 Lactic Acid (0.7 - 2.1 mmol/L) 0.8 Hematology CBC w Diff NO MAN DIFF REQ WBC (4.8 - 10.8 /CUMM) 19.0 H RBC (4.70 - 6.10 /CUMM) 2.83 L Hgb (14.0 - 18.0 G/DL) 9.3 L Hct (42 - 52 %) 27.8 L MCV (80.0 - 94.0 FL) 98.0 H MCH (27.0 - 31.0 PG) 32.8 H RDW (11.5 - 14.5 %) 15.6 H Plt Count (130 - 400 /CUMM) 198 MPV (7.4 - 10.4 FL) 8.5 Gran % (42.2 - 75.2 %) 81.8 H Lymphocytes % (20.5 - 51.1 %) 5.2 L Monocytes % (1.7 - 9.3 %) 5.5 Eosinophils % (0 - 5 %) 7.3 H Basophils % (0.0 - 2.0 %) 0.2 Absolute Granulocytes (1.4 - 6.5 /CUMM) 15.6 H Absolute Lymphocytes (1.2 - 3.4 /CUMM) 1.0 L Absolute Monocytes (0.10 - 0.60 /CUMM) 1.0 H Absolute Eosinophils (0.0 - 0.7 /CUMM) 1.4 Absolute Basophils (0.0 - 0.2 /CUMM) 0 PUBS MCHC (33.0 - 37.0 G/DL) 33.5 16 10/05 1616 1339 Chemistry Sodium (137 - 145 mmol/L) 137 Potassium (3.5 - 5.1 mmol/L) 5.3 H Chloride (98 - 107 mmol/L) 101 Carbon Dioxide (22 - 30 mmol/L) 23 Anion Gap (5 - 16) 13 BUN (9 - 20 mg/dL) 50 H Creatinine (0.7 - 1.2 mg/dL) 3.2 H Estimated GFR (>60 ml/min) 19 L BUN/Creatinine Ratio (7 - 25 %) 15.6 Glucose (65 - 99 mg/dL) 75 Lactic Acid (0.7 - 2.1 mmol/L) 1.5 Calcium (8.4 - 10.2 mg/dL) 8.8 Total Bilirubin (0.2 - 1.3 mg/dL) 0.5 AST (17 - 59 U/L) 19 ALT (21 - 72 U/L) 27 Alkaline Phosphatase (< 127 U/L) 83 Troponin I (<0.11 ng/ml) 0.05 Total Protein (6.3 - 8.2 g/dL) 6.6 Albumin (3.5 - 5.0 g/dL) 3.6 Globulin (1.9 - 4.2 gm/dL) 3.0 Albumin/Globulin Ratio (1.1 - 2.2 %) 1.2 Hematology CBC w Diff MAN DIFF ORDERED WBC (4.8 - 10.8 /CUMM) 28.7 H RBC (4.70 - 6.10 /CUMM) 3.35 L Hgb (14.0 - 18.0 G/DL) 11.0 L Hct (42 - 52 %) 33.1 L MCV (80.0 - 94.0 FL) 99.0 H MCH (27.0 - 31.0 PG) 32.8 H RDW (11.5 - 14.5 %) 15.5 H Plt Count (130 - 400 /CUMM) 250 MPV (7.4 - 10.4 FL) 7.9 Gran % (42.2 - 75.2 %) 91.4 H Lymphocytes % (20.5 - 51.1 %) 3.5 L Monocytes % (1.7 - 9.3 %) 4.4 Eosinophils % (0 - 5 %) 0.6 Basophils % (0.0 - 2.0 %) 0.1 Absolute Granulocytes (1.4 - 6.5 /CUMM) 26.3 H Segmented Neutrophils (42.2 - 75.2 %) 83 H Band Neutrophils (0.0 - 5.0 %) 11 H Absolute Lymphocytes (1.2 - 3.4 /CUMM) 1.0 L Lymphocytes (20.5 - 51.1 %) 3 L Monocytes (1.7 - 9.3 %) 3 Absolute Monocytes (0.10 - 0.60 /CUMM) 1.3 H Absolute Eosinophils (0.0 - 0.7 /CUMM) 0.2 Absolute Basophils (0.0 - 0.2 /CUMM) 0 Platelet Estimate (ADEQUATE) ADEQUATE Hypochromic-Microcytic 1+ Anisocytosis 1+ PUBS MCHC (33.0 - 37.0 G/DL) 33.1 Urines Urine Color (YEL,AMB,STR) YEL Urine Clarity (CLEAR) CLDY H Urine pH (5.0 - 8.0) 6.0 Ur Specific [place] (1.001 - 1.035) 1.025 Urine Protein (NEG,<30 MG/DL) 100 H Urine Ketones (NEG) NEG Urine Nitrite (NEG) NEG Urine Bilirubin (NEG) NEG Urine Urobilinogen (0.1 - 1.0 EU/dl) 0.2 Ur Leukocyte Esterase (NEG) MOD H Ur Microscopic SEDIMENT EXAMINED Urine RBC (0 - 5 /HPF) 5-10 H Urine WBC (0 - 2 /HPF) > 75 H Ur Epithelial Cells (NONE,FEW) RARE Urine Bacteria (NEG/NONE) MANY H Urine Hemoglobin (NEG) MOD H Urine Glucose (N MG/DL) NEG Assessment/Plan Assessment/Plan Imp: 1. Urosepsis likely related to indwelling neri 2. Neurogenic bladder 3. L vesico-ureteral reflux 4. CKD 5. Atrophic R kidney Plan: 1. Agree with ceftazidime 2. f/u urine culture and adjust abx accordingly 3. Optimal management of bladder would be intermittent cath because this has lower infection rate than indwelling tube, but I doubt this is practical as outpatient as he is unlikely to be able to do it himself and he lives at home with an aid 4. Suprapubic tube may have lower risk of UTI than urethral neri. Due to his previous hx of abdominal surgery this would require an open procedure, not a percutaneous procedure. I will discuss with his daughter Consult Acknowledgment - Thank you for your consult request.
[2017-10-06] MEDS ORDERED: CARBIDOPA-LEVO1 EAC7 PO (14:41)
[2017-10-06] MEDS ORDERED: TOPROL XL25 M1 PO (15:03)
[2017-10-06 15:21] VITALS: BP 140/95
--- NOTE | 2017-10-06 17:55 | Discharge Summary ---
Visit Information Visit Dates Admission Date: 10/05/17 Discharge Date: 10/09/17 Hospital Course Course Attending Physician: Reyna Aaron MD Primary Care Physician: Varun VILLA,Emily Jiménez Consulting Request: Consulting Specialty: Urology Consulting Physician: Reason for Consult: CAUTI Hospital Course: Patient is 81-year-old male with past medical history significant for Parkinson' s disease,BPH status post TURP and chronic Neri's catheter due to neurogenic bladder, stage V CK D refusing dialysis, history of hydronephrosis status post ureteral stent, history of sigmoid volvulus status post subtotal colectomy, ileostomy and bilateral hernia repair in 2016, bilateral hip replacement came in from [facility] to be evaluated for abnormal lab, shaking chills and fever. Apparently he had 1 day of fatigue, weakness, and chills, found to have UA indicative of UTI with WBC 28, afebrile, stable vitals. Problem list 1. CAUTI 2. Hyperkalemia 3. Neurogenic bladder with chronic indwelling neri 4. Parkinsons disease CAUTI - catheter associated UTI Patient had recurrent infections in the past 6 months and grew pseudomonas resistant to ciprofloxacin. Started on ceftaz IV Q24hrs as per renal dosing. Intially hydrated with 2L NS, as Blood pressure remained stable discontinued fluids. Cultures grew Klebsiella pneumonae. After 4days transitioned to ciprofloxacin 500mg Q24hrs for a total of 14days (TILL 10/18/17). Urology consulted due to recurrent infections. We discontinued neri catheter and started on straight catheterization (4-5times) per day. It is recommended to have a suprapubic catheter as it is associated with low risk for infections. This can be done as outpatient. Daughter would like to proceed with straight cath protocol for now. If they want to pursue it in further please follow up with ( urologist). Hyperkalemia Found to have K of 6.1 in the facility - treated with kayexalate, Dextrose/ insulin, Calcium gluconate. Repeat K today is 4.8 - remained stable. Chronic indwelling neri catheter We removed neri as it is draining purulent urine. Removed neri. started on straight cath protocol. Neurogenic bladder was consulted who suggested to place a suprapubic catheter as it is associated with lower risk for infections. History of HTN Continue amlodipine and ASA 81mg stage V CKD patient refused dialysis. Medically managed with sodium biacrbonate 1300mg TID and sevelamir 800mg WM PO. DVT prophylaxis SC heparin Code status full code Complications: None Allergies: Coded Allergies: Penicillins (UNKNOWN 06/05/17) Significant Procedures: CXR on 10/05/17 IMPRESSION: No acute abnormality the chest. Pertinent Lab Results: > URINE CULTURE Final 10/07/17-957 Greater than 100,000 colonies per ml of: KLEBSIELLA PNEUMONIAE 1. KLEBSIELLA PNEUMONIAE RX AB ------ -- AMPICILLIN R CEFAZOLIN S AMOXICILLIN/CLAVULINIC ACID S AMPICILLIN/SULBACTAM S CIPROFLOXACIN S GENTAMICIN S NITROFURANTOIN I TRIMETHOPRIM/SULFAMETHOXAZOLE S Note: [employer] [place] Disposition Summary Disposition Principal Diagnosis: CAUTI Additional Diagnosis: Hyperkalemia Neurogenic bladder with chronic indwelling neri Parkinsons disease Discharge Disposition: SNF Discharge Instructions General Discharge Information Code Status: Full Code Patient's Diet: renal diet Patient's Activity: as tolerated Follow-Up Instructions/Appts: Please follow up wtih your PCP in a week Medications at Discharge Discharge Medications: Continue taking these medications: Sevelamer Carbonate (Renvela) 800 MG TABLET 1 Tablet ORAL TIDWM Qty = 270 Comments: Last Taken: 10/09/17 Time: 1:17 PM Aspirin (Ecotrin*) 81 MG TABLET.DR 1 Tablet ORAL Every Morning Comments: Last Taken: 10/09/17 Time 9 :00 AM Multivitamin (Multi-Day Vitamins) 1 EACH TABLET 1 Tablet ORAL Every Morning Comments: Last Taken:06/09/17 Time:9:41A.M Ferrous Sulfate (Ferrous Sulfate) 325 MG (65 MG IRON) TABLET 1 Tablet ORAL THREE TIMES DAILY Comments: NOT GIVEN IN HOSPITAL Zinc Sulfate (Zinc Sulfate) 220 MG TABLET 1 Tablet ORAL Every Morning Comments: Last Taken: 10/09/17 Time: 9:00 AM Sodium Bicarbonate (Sodium Bicarbonate) 325 MG TABLET 1,300 Milligram ORAL THREE TIMES DAILY Qty = 60 Comments: Last Taken: 10/09 Time: 9:00AM Nystatin (Nystatin) 100,000 UNIT/GRAM CREAM..G. 1 Application On the skin APPLY TO SKIN Qty = 1 Instructions: apply 2 times a day. Comments: NOT GIVEN IN HOSPITAL Ceftazidime (Fortaz) 1 GRAM VIAL 1 Gram INTRAVEN DAILY Qty = 4 Comments: Last Taken: 10/08/17 Time: 9:00 AM Amlodipine Besylate (Amlodipine Besylate) 5 MG TABLET 1 Tablet ORAL DAILY Qty = 30 Comments: Last Taken: 10/09 Time: 9:00AM Carbidopa/Levodopa (Carbidopa-Levodopa 25-100 Tab) 25 MG-100 MG TABLET 1 Tablet ORAL TWICE DAILY Comments: Last Taken: 10/09/17 Time: 11:00 AM Metoprolol Succ XL (Toprol XL) 25 MG TAB 1 Tablet ORAL DAILY Qty = 30 Comments: Last Taken: 10/09/17 Time: 9:00 AM Start taking the following new medications: Ciprofloxacin HCl (Cipro) 500 MG TABLET 1 Tablet ORAL DAILY Qty = 9 No Refills Comments: Last Taken: 10/09/17 Time: 11:30 AM Copies To: Martha VILLA,Michael Tillman; Varun VILLA,Emily Jiménez Attending MD Review Statement Documenting Attending: Reyna Aaron MD
[2017-10-06 23:02] VITALS: BP 150/70
[2017-10-07 06:20] VITALS: BP 144/80
--- NOTE | 2017-10-07 07:46 | PN- Urology ---
Subjective Subjective: NO distress Objective Vital Signs and I&Os Vital Signs Date Time Temp Pulse Resp B/P B/P Pulse O2 O2 Flow FiO2 Mean Ox Delivery Rate 10/07 0620 98.5 63 20 144/80 91 Room Air 10/06 2302 98.1 69 20 150/70 93 Room Air 10/06 1722 78 130/78 10/06 1722 78 132/82 10/06 1521 98.6 72 18 140/95 91 10/06 1327 Room Air 10/06 1308 Room Air 2.0L Intake & Output 10/07 0800 10/07 0000 10/06 1600 10/06 0800 10/06 0000 10/05 1600 Intake Total 100 4427 472 2647 110 Output Total 1300 2850 300 890 Balance -1200 -1850 -100 335 110 Intake, IV 1225 110 Intake, Oral 100 1000 200 0 Output, Stool 600 1200 300 400 Output, Urine 700 1650 490 Patient 173 lb Weight Weight Reported by Patient Measurement Method Abd: soft and non tender. Colostomy in RLQ Rossi is out and patient now on intermittent cath Laboratory Tests 10/06 0800 Chemistry Sodium (137 - 145 mmol/L) 138 Potassium (3.5 - 5.1 mmol/L) 4.8 Chloride (98 - 107 mmol/L) 106 Carbon Dioxide (22 - 30 mmol/L) 19 L Anion Gap (5 - 16) 13 BUN (9 - 20 mg/dL) 49 H Creatinine (0.7 - 1.2 mg/dL) 3.2 H Estimated GFR (>60 ml/min) 19 L BUN/Creatinine Ratio (7 - 25 %) 15.3 Hematology CBC w Diff NO MAN DIFF REQ WBC (4.8 - 10.8 /CUMM) 19.0 H RBC (4.70 - 6.10 /CUMM) 2.83 L Hgb (14.0 - 18.0 G/DL) 9.3 L Hct (42 - 52 %) 27.8 L MCV (80.0 - 94.0 FL) 98.0 H MCH (27.0 - 31.0 PG) 32.8 H RDW (11.5 - 14.5 %) 15.6 H Plt Count (130 - 400 /CUMM) 198 MPV (7.4 - 10.4 FL) 8.5 Gran % (42.2 - 75.2 %) 81.8 H Lymphocytes % (20.5 - 51.1 %) 5.2 L Monocytes % (1.7 - 9.3 %) 5.5 Eosinophils % (0 - 5 %) 7.3 H Basophils % (0.0 - 2.0 %) 0.2 Absolute Granulocytes (1.4 - 6.5 /CUMM) 15.6 H Absolute Lymphocytes (1.2 - 3.4 /CUMM) 1.0 L Absolute Monocytes (0.10 - 0.60 /CUMM) 1.0 H Absolute Eosinophils (0.0 - 0.7 /CUMM) 1.4 Absolute Basophils (0.0 - 0.2 /CUMM) 0 PUBS MCHC (33.0 - 37.0 G/DL) 33.5 Assessment/Plan Assessment/Plan Imp: 1. Neurogenic bladder requiring bladder drainage 2. Atrophic R kidney 3. L vesico-ureteral reflux 4. CKD 5. Urosepsis improved Plan: 1. Continue intermittent cath q 8 hours. Will need to follow creatinine closely. If creatinine rises will need to increase frequency of str cath to q 6 hours 2. If patient goes to rehab intermittent cath could be continued there. The issue will be when the patient goes home. Maybe nurses here or at rehab can teach patient's aid how to do the intermittent cath or potentially patient can be taught to do it himself but I am not sure that this is possible. 3. If intermittent cath not possible then suprapubic tube would be next option
--- NOTE | 2017-10-07 08:17 | Patient Discharge Instructions ---
Discharge Instructions General Discharge Information You were seen/treated for: Catheter associated UTI Special Instructions: Please follow up with your PCP in a week Please follow up with your urologist Dr. Mercado in a week for placement of suprapubic catheter Instructions for Jaime Preston for intermittent catheterization: please straight cath ~q6 hours- at 6am, 12pm, 5pm, 10pm until directed otherwise by urologist. Diet Continue normal diet: Yes Recommended Diet: Heart Healthy Activity Activity Self Limited: Yes Acute Coronary Syndrome Inclusion Criteria At DC or during hospital stay patient has or had the following: ACS DIAGNOSIS No Discharge Core Measures Meds if any: Prescribed or Continued at Discharge Meds if any: NOT Prescribed or Continued at Discharge Congestive Heart Failure Inclusion Criteria At DC or during hospital stay patient has or had the following: CHF DIAGNOSIS No Discharge Core Measures Meds if any: Prescribed or Continued at Discharge Meds if any: NOT Prescribed or Continued at Discharge Cerebrovascular accident Inclusion Criteria At DC or during hospital stay patient has or had the following: CVA/TIA Diagnosis No Discharge Core Measures Meds if any: Prescribed or Continued at Discharge Meds if any: NOT Prescribed or Continued at Discharge Venous thromboembolism Inclusion Criteria VTE Diagnosis No VTE Type NONE VTE Confirmed by (Test) NONE Discharge Core Measures - Per Current guidelines, there needs to be overlap - treatment for the first 5 days of Warfarin therapy. - If discharged on Warfarin prior to 5 days of - overlap therapy, the patient will need to be - assessed for post discharge needs including - *Post discharge parental anticoagulation - *Warfarin and/or parental anticoagulation education - *Follow up date to check INR post discharge At least 5 days overlap therapy as Inpatient No Meds if any: Prescribed or Continued at Discharge Note: Overlap Therapy is Warfarin and Anticoagulant Meds if any: NOT Prescribed or Continued at Discharge
[2017-10-07 08:53] LABS: ABSOLUTE BASOPHIL COUNT 0 /CUMM (0.0-0.2); ABSOLUTE EOSINOPHIL COUNT 1.4 /CUMM (0.0-0.7); ABSOLUTE GRANULOCYTE CT 7.4 /CUMM (1.4-6.5); ABSOLUTE LYMPH COUNT 1.6 /CUMM (1.2-3.4); ABSOLUTE MONOCYTE COUNT 1.2 /CUMM (0.10-0.60); BASOPHIL % 0.4 % (0.0-2.0); EOSINOPHIL % 12.1 % (0-5); GRANULOCYTE % 63.9 % (42.2-75.2); HEMATOCRIT 27.8 % (42-52); MEAN CORPUSCULAR HGB 32.7 PG (27.0-31.0); MEAN CORPUSCULAR HGB CONC 33.4 G/DL (33.0-37.0); MEAN CORPUSCULAR VOLUME 97.7 FL (80.0-94.0); MEAN PLATELET VOLUME 8.8 FL (7.4-10.4); PLATELET COUNT 213 /CUMM (130-400); RBC DISTRIBUTION WIDTH 15.1 % (11.5-14.5); RED BLOOD CELL CT 2.84 /CUMM (4.70-6.10); WHITE BLOOD CELL COUNT 11.6 /CUMM (4.8-10.8)
--- NOTE | 2017-10-07 08:55 | PN- Wound Care ---
Subjective Subjective: Patient is now on a low air loss mattress. Objective Vital Signs and I&Os Vital Signs Result Date Time Pulse Ox 91 10/07 619 B/P 144/80 10/07 619 O2 Delivery Room Air 10/07 619 Temp 98.5 10/07 619 Pulse 63 10/07 619 Resp 20 10/07 619 O2 Flow Rate 2.0L 10/06 1308 Intake & Output 10/07 0000 10/06 1600 10/06 0800 Intake Total 100 1000 200 Output Total 1300 2850 300 Balance -1200 -1850 -100 Intake, Oral 100 1000 200 Output, Stool 600 1200 300 Output, Urine 700 1650 He had erythema secondary to stage I pressure ulcer appears less prominent. He small areas of possible stage II ulceration appear healed. Impression/Plan Impression/Plan Impression/Plan: 81-year-old gentleman multiple medical problems admitted for sepsis urologic origin in this found to have a large areas of stage I pressure ulceration present on admission. There may be several minute areas that might be stage II as well. Recommend low air loss mattress use of barrier cream and frequent repositioning to offload the areas. Continue frequent positioning lower loss mattress and barrier cream wounds appear improved
--- NOTE | 2017-10-07 13:50 | PN- Housestaff ---
Walter VILLA,Vianney 10/07/17 1350: Subjective Follow-up For: 1. Neri associated urinary tract infection 2. Hyperkalemia: 3. CKD stage V 4. History of HTN 5. History of BPH s/p TURP 6. neurogenic bladder with indwelling Neri's catheter 7. History of Parkinson's disease 8. History of sigmoid volvulus status post subtotal ileostomy Subjective: patient states that he has full body pain but cannot point to a source or reason. he denies any lower abdominal pain, chills, fever, diaphoresis. does feel weak. Review of Systems Constitutional: Reports: weakness. Gastrointestinal: Reports: no symptoms. Genitourinary: Reports: no symptoms. Musculoskeletal: Reports: joint pain, muscle pain. Objective Last 24 Hrs of Vital Signs/I&O Vital Signs Date Time Temp Pulse Resp B/P B/P Pulse O2 O2 Flow FiO2 Mean Ox Delivery Rate 10/07 1359 98.0 74 20 150/60 95 Room Air 10/07 0851 63 144/80 10/07 0620 98.5 63 20 144/80 91 Room Air 10/06 2302 98.1 69 20 150/70 93 Room Air Intake & Output 10/07 1600 10/07 0800 10/07 0000 Intake Total 1300 50 100 Output Total 403 341 6766 Balance 600 -800 -1200 Intake, Oral 1300 50 100 Output, Stool 200 150 600 Output, Urine 500 700 700 Patient 172 lb Weight Physical Exam General Appearance: Alert, Cooperative, No Acute Distress HEENT: Atraumatic, PERRLA Cardiovascular: Regular Rate, Normal S1, Normal S2, No Murmurs Lungs: Clear to Auscultation, Normal Air Movement Abdomen: Normal Bowel Sounds, Soft, No Tenderness, No Hepatospenomegaly, No Masses Extremities: No Clubbing, No Cyanosis, No Edema Current Medications: Current Medications Sig/Delicia Start time Last Medication Dose Route Stop Time Status Admin Acetaminophen 650 MG Q6P PRN 10/05 1800 AC PO Acetaminophen 1,000 MG Q6P PRN 10/05 1800 AC IV Amlodipine Besylate 5 MG DAILY 10/06 1423 AC 10/07 PO 0851 Artificial Tears 2 GTT 4 TIMES/DAY PRN 10/06 1130 AC 10/07 OPH 0848 Aspirin 81 MG DAILY 10/06 1600 AC 10/07 PO 0841 Carbidopa/Levodopa 1 TAB BID 10/06 1502 AC 10/07 PO 0854 Ceftazidime 1,000 MG Q24 10/06 1000 AC 10/07 IV 0855 Heparin Sodium 5,000 UNIT Q8 10/05 2200 AC 10/07 (Porcine) SC 1309 Hydromorphone HCl 0.5 MG Q6-PRN PRN 10/05 1800 AC 10/06 IV 1044 Metoprolol Succinate 25 MG DAILY 10/06 1503 AC 10/07 PO 0853 Sevelamer Carbonate 800 MG WM 10/06 0800 AC 10/07 PO 1824 Sodium Bicarbonate 1,300 MG TID 10/06 1000 AC 10/07 PO 1824 Zinc Sulfate 220 MG DAILY 10/06 1000 AC 10/07 PO 0853 Last 24 Hrs of Lab/Arturo Results Last 24 Hrs of Labs/Mics: Laboratory Tests 10/07/17 0743: Anion Gap 14, Estimated GFR 19 L, BUN/Creatinine Ratio 17.4, CBC w Diff NO MAN DIFF REQ, RBC 2.84 L, MCV 97.7 H, MCH 32.7 H, RDW 15.1 H, MPV 8.8, Gran % 63.9, Lymphocytes % 13.5 L, Monocytes % 10.1 H, Eosinophils % 12.1 H, Basophils % 0.4, Absolute Granulocytes 7.4 H, Absolute Lymphocytes 1.6, Absolute Monocytes 1.2 H, Absolute Eosinophils 1.4, Absolute Basophils 0, PUBS MCHC 33.4 Assessment/Plan Assessment: Patient is 81-year-old male with past medical history significant for Parkinson' s disease,BPH status post TURP and chronic Neri's catheter due to neurogenic bladder, stage V CK D refusing dialysis, history of hydronephrosis status post ureteral stent, history of sigmoid volvulus status post subtotal colectomy, ileostomy and bilateral hernia repair in 2016, bilateral hip replacement came in from [facility] to be evaluated for abnormal lab, shaking chills and fever. Admitted for Neri associated UTI Admitted to general medicine floor Problem list 1. Neri associated urinary tract infection 2. Hyperkalemia: 3. CKD stage V 4. History of HTN 5. History of BPH s/p TURP 6. neurogenic bladder with indwelling Neri's catheter 7. History of Parkinson's disease 8. History of sigmoid volvulus status post subtotal ileostomy CAUTI - catheter associated UTI patient had recurrent infections in the past 6 months and grew pseudomonas resistant to ciprofloxacin. Started on ceftaz IV Q24hrs as per renal dosing. Intially hydrated with 2L NS, as Blood pressure remained stable discontinued fluids. Urology consulted due to recurrent infections. patient will need 2 weeks total of abx. Cr. is still high 3.1. Hyperkalemia Found to have K of 6.1 in the facility - treated with kayexalate, Dextrose/ insulin, Calcium gluconate. Repeat K today is 4.7. Chronic indwelling neri catheter We removed neri as it is draining purulent urine. started on straight cath protocol. we need to check with case management tomorrow abotu straight cath protocol in STR. Neurogenic bladder was consulted who suggested to place a suprapubic catheter as it is associated with lower risk for infections. This need to be further discussed with family and he will do it outpatient. History of parkinsons disease Continue sinamet 25/100mg BID History of HTN Continue amlodipine and ASA 81mg metoprolol stage V CKD patient refused dialysis. Medically managed with sodium biacrbonate 1300mg TID and sevelamir 800mg WM PO. DVT prophylaxis SC heparin Code status full code dilaudid .5q6 for pain tylenol 650 and 1000mg Problem List: 1. Bed sore on buttock 2. Sepsis due to urinary tract infection Pain Ratin Pain Location: full body muscle Pain Goal: Pain 4 or less Pain Plan: dilaudid .5mg q6 Tomorrow's Labs & Rationales: Reyna Arguelles 10/07/17 1356: Attending MD Review Statement Attending Statement Attending MD Statement: examined this patient, discuss w/resident/PA/SECURITIES ANALYST, agreed w/resident/PA/SECURITIES ANALYST, discussed with family, reviewed EMR data (avail), discussed with nursing, discussed with case mgmt, reviewed images, amended to note Attending Assessment/Plan: 81 o/m with h Parkinson's disease,BPH status post TURP and chronic Neri's catheter due to neurogenic bladder, stage V CK D refusing dialysis, history of hydronephrosis status post ureteral stent, history of sigmoid volvulus status post subtotal colectomy, recurrent UTI's most recently growing Pseudomonas, presenting with 1 day of fatigue, weakness, and chills admitted with sepsis 2/2 UTI catheter associated with neurogenic bladder and CKD. Patient seen/examined bedside. Patient denies fever. His WBC has been improving trending down. Patient is on antibiotics empiric as per previous culture sensitivity. Follow urine culture. Cr 3.1. Urology consulted and s/p removal of neri catheter with intermittent cath and possible placement of suprapubic in future. Wound following for sacral decubitius ulcer present on admission. Resume home meds. Antihypertensives resume as able. gi/dvt prophyalxis
[2017-10-07 13:59] VITALS: BP 150/60
[2017-10-07 22:36] VITALS: BP 156/84
[2017-10-08 06:15] VITALS: BP 158/70
--- NOTE | 2017-10-08 08:30 | PN- Housestaff ---
Walter VILLA,Vianney 10/08/17826: Subjective Follow-up For: 1. Neri associated urinary tract infection 2. Hyperkalemia 3. CKD stage V 4. History of HTN 5. History of BPH s/p TURP 6. neurogenic bladder with indwelling Neri's catheter 7. History of Parkinson's disease 8. History of sigmoid volvulus status post subtotal ileostomy Subjective: Patient is eating breakfast on exam. Is slow in his movements. He is getting straight cathed 4x daily 6, 12, 17, 22, and yielding 600ml each time. Patient notes pain in his back and buttock wounds. No abdominal pain, cp, sob. Review of Systems Constitutional: Reports: no symptoms. Musculoskeletal: Reports: back pain, muscle pain. Skin: Reports: lesions. Objective Last 24 Hrs of Vital Signs/I&O Vital Signs Date Time Temp Pulse Resp B/P B/P Pulse O2 O2 Flow FiO2 Mean Ox Delivery Rate 10/08 1510 97.8 72 20 140/80 95 10/08 0928 66 158/70 10/08 0928 66 158/70 10/08 0615 98.4 66 20 158/70 91 Room Air 10/07 2236 98.4 69 20 156/84 92 Room Air Intake & Output 10/08 1600 10/08 0800 10/08 0000 Intake Total 1300 150 100 Output Total 500 1050 2100 Balance 800 -900 -2000 Intake, Oral 1300 150 100 Number 1 Bowel Movements Output, Stool 200 700 Output, Urine 154 154 4553 Physical Exam General Appearance: Alert, Cooperative, No Acute Distress Skin: sacral decubitus ulcers HEENT: Atraumatic, EOMI, Mucous Membr. moist/pink Cardiovascular: Regular Rate, Normal S1, Normal S2, No Murmurs Lungs: Clear to Auscultation Abdomen: Normal Bowel Sounds, Soft, No Tenderness Neurological: Normal Speech Extremities: No Clubbing, No Cyanosis, Normal Pulses Current Medications: Current Medications Sig/Delicia Start time Last Medication Dose Route Stop Time Status Admin Acetaminophen 650 MG Q6P PRN 10/05 1800 AC PO Acetaminophen 1,000 MG Q6P PRN 10/05 1800 AC IV Amlodipine Besylate 5 MG DAILY 10/06 1423 AC 10/08 PO 0928 Artificial Tears 2 GTT 4 TIMES/DAY PRN 10/06 1130 AC 10/07 OPH 0848 Aspirin 81 MG DAILY 10/06 1600 AC 10/08 PO 0929 Carbidopa/Levodopa 1 TAB BID 10/06 1502 AC 10/08 PO 0928 Ceftazidime 1,000 MG Q24 10/06 1000 DC 10/08 IV 0930 Ciprofloxacin 500 MG DAILY 10/09 1000 AC PO 10/13 0959 Heparin Sodium 5,000 UNIT Q8 10/05 2200 AC 10/08 (Porcine) SC 1302 Hydromorphone HCl 0.5 MG Q6-PRN PRN 10/05 1800 AC 10/06 IV 1044 Metoprolol Succinate 25 MG DAILY 10/06 1503 AC 10/08 PO 0928 Sevelamer Carbonate 800 MG WM 10/06 0800 AC 10/08 PO 1301 Sodium Bicarbonate 1,300 MG TID 10/06 1000 AC 10/08 PO 0927 Zinc Sulfate 220 MG DAILY 10/06 1000 AC 10/08 PO 0929 Last 24 Hrs of Lab/Arturo Results Last 24 Hrs of Labs/Mics: Laboratory Tests 10/08/17 0800: Anion Gap 16, Estimated GFR 18 L, BUN/Creatinine Ratio 16.4, CBC w Diff NO MAN DIFF REQ, RBC 3.00 L, MCV 97.8 H, MCH 32.9 H, RDW 15.2 H, MPV 8.6, Gran % 62.4, Lymphocytes % 14.3 L, Monocytes % 9.9 H, Eosinophils % 13.0 H, Basophils % 0.4, Absolute Granulocytes 5.7, Absolute Lymphocytes 1.3, Absolute Monocytes 0.9 H, Absolute Eosinophils 1.2, Absolute Basophils 0, PUBS MCHC 33.6 Assessment/Plan Assessment: Patient is 81-year-old male with past medical history significant for Parkinson' s disease,BPH status post TURP and chronic Neri's catheter due to neurogenic bladder, stage V CK D refusing dialysis, history of hydronephrosis status post ureteral stent, history of sigmoid volvulus status post subtotal colectomy, ileostomy and bilateral hernia repair in 2016, bilateral hip replacement came in from [facility] to be evaluated for abnormal lab, shaking chills and fever. Admitted for Neri associated UTI Admitted to general medicine floor Problem list 1. Neri associated urinary tract infection 2. Hyperkalemia: 3. CKD stage V 4. History of HTN 5. History of BPH s/p TURP 6. neurogenic bladder with indwelling Neri's catheter 7. History of Parkinson's disease 8. History of sigmoid volvulus status post subtotal ileostomy CAUTI - catheter associated UTI patient had recurrent infections in the past 6 months and grew pseudomonas resistant to ciprofloxacin. Started on ceftaz IV Q24hrs as per renal dosing. Intially hydrated with 2L NS, as Blood pressure remained stable discontinued fluids. Urology consulted due to recurrent infections. patient will need 2 weeks total of abx. urine is growing Klebsiella sensitive to cipro, bactrim, augmentin but has documented pcn allergy. on questioning about the allergy patient said he has never had any symptoms but it is documented. Unsure of why. To be careful we will prescribe renal dosing of cipro 500mg bid for 10 days for a total of 14 days treatment. Cr. is still high 3.3. Hyperkalemia resolved Found to have K of 6.1 in the facility - treated with kayexalate, Dextrose/ insulin, Calcium gluconate. Repeat K today is 4.8. Chronic indwelling neri catheter We removed neri as it is draining purulent urine. started on straight cath protocol q6 with 600-800 drained each time. we need to check with case management tomorrow about straight cath protocol in STR. Neurogenic bladder was consulted who suggested to place a suprapubic catheter as it is associated with lower risk for infections. Hopefully at rehab facility the nurses can teach the patient and his home based assistant to do it. If intermittent cath is just not possible at home then suprapubic tube would be the next option. Patient will follow up with him outpatient. History of parkinsons disease Continue sinamet 25/100mg BID History of HTN Continue amlodipine and ASA 81mg metoprolol stage V CKD patient refused dialysis. Medically managed with sodium biacrbonate 1300mg TID and sevelamir 800mg WM PO. Disposition Patient is set to go to [facility] tomorrow but we will call the daughter Joi before he leaves to update her. We attempted to call her today to no avail. DVT prophylaxis SC heparin Code status full code dilaudid .5q6 for pain tylenol 650 and 1000mg Problem List: 1. S/P colectomy 2. Bed sore on buttock 3. Sepsis due to urinary tract infection Pain Ratin Pain Location: sacral decub ulcer Pain Goal: Pain 4 or less Pain Plan: dilaudid, ofirmev, tylenol 650 Tomorrow's Labs & Rationales: cbc bep Reyna Aaron 10/08/17 1114: Attending MD Review Statement Attending Statement Attending MD Statement: examined this patient, discuss w/resident/PA/CIGAR ROLLER, agreed w/resident/PA/CIGAR ROLLER, discussed with family, reviewed EMR data (avail), discussed with nursing, discussed with case mgmt, reviewed images, amended to note Attending Assessment/Plan: 81 o/m with pmh Parkinson's disease,BPH status post TURP and chronic Neri's catheter due to neurogenic bladder, stage V CK D refusing dialysis, history of hydronephrosis status post ureteral stent, history of sigmoid volvulus status post subtotal colectomy, recurrent UTI's most recently growing Pseudomonas, presenting with 1 day of fatigue, weakness, and chills admitted with sepsis 2/2 UTI catheter associated with neurogenic bladder and CKD. Patient seen/examined bedside. Patient denies fever. His WBC has been improving trending down. Patient is on antibiotics empiric as per previous culture sensitivity. Follow urine culture shows kleibsella pneumonia. Cr stable. Urology consulted and s/p removal of neri catheter with intermittent cath and possible placement of suprapubic in future. Wound following for sacral decubitius ulcer present on admission. Resume home meds. Antihypertensives resume as able. DC planning with intermittent cath four times a day at [facility] as per urology. F/u o/p urology for suprapubic catheter placement in future. F/u PCP o/p after discharge.
[2017-10-08 08:51] LABS: ABSOLUTE BASOPHIL COUNT 0 /CUMM (0.0-0.2); ABSOLUTE EOSINOPHIL COUNT 1.2 /CUMM (0.0-0.7); ABSOLUTE GRANULOCYTE CT 5.7 /CUMM (1.4-6.5); ABSOLUTE LYMPH COUNT 1.3 /CUMM (1.2-3.4); ABSOLUTE MONOCYTE COUNT 0.9 /CUMM (0.10-0.60); BASOPHIL % 0.4 % (0.0-2.0); GRANULOCYTE % 62.4 % (42.2-75.2); HEMATOCRIT 29.3 % (42-52); MEAN CORPUSCULAR HGB 32.9 PG (27.0-31.0); MEAN CORPUSCULAR HGB CONC 33.6 G/DL (33.0-37.0); MEAN CORPUSCULAR VOLUME 97.8 FL (80.0-94.0); MEAN PLATELET VOLUME 8.6 FL (7.4-10.4); PLATELET COUNT 235 /CUMM (130-400); RBC DISTRIBUTION WIDTH 15.2 % (11.5-14.5); WHITE BLOOD CELL COUNT 9.2 /CUMM (4.8-10.8)
[2017-10-08] MEDS ORDERED: CIPRO500 M1 PO ×2 (11:15→14:51)
--- NOTE | 2017-10-08 14:11 | PN- Urology ---
Surgical Brief Attending Note Brief Attending Note: Discussed with patient's daughter issue of requirement for bladder draninage and recurrent episodes of urosepsis with indwelling neri. In view of the fact that infection rate is lowest with intermittent cath she is interested in trying to manage his bladder this way permanently if possible. He should continue on intermittent cath 3-4 times per day. Hopefully at rehab facility the nurses can teach the patient and his home insurance agent to do it. If intermittent cath is just no possible at home then suprapubic tube would be the next option.
[2017-10-08 15:10] VITALS: BP 140/80
[2017-10-08 22:28] VITALS: BP 144/70
[2017-10-09 06:34] VITALS: BP 180/86
--- NOTE | 2017-10-09 08:54 | PN- Housestaff ---
Walter VILLA,Vianney 10/09/17 0853: Subjective Follow-up For: 1. Neri associated urinary tract infection 2. Hyperkalemia 3. CKD stage V 4. History of HTN 5. History of BPH s/p TURP 6. neurogenic bladder with indwelling Neri's catheter 7. History of Parkinson's disease 8. History of sigmoid volvulus status post subtotal ileostomy Subjective: patient states today that he is feeling good aside from his buttock pain. he is eating breakfast slowly and asks for help eating. Review of Systems Constitutional: Reports: no symptoms, fever. Cardiovascular: Reports: no symptoms. Respiratory: Reports: no symptoms. Gastrointestinal: Reports: no symptoms. Genitourinary: Reports: no symptoms. Musculoskeletal: Reports: no symptoms. Objective Last 24 Hrs of Vital Signs/I&O Vital Signs Date Time Temp Pulse Resp B/P B/P Pulse O2 O2 Flow FiO2 Mean Ox Delivery Rate 10/09 1538 97.7 72 20 150/70 10/09 1353 97.7 72 20 150/70 97 Room Air 10/09 0852 138/70 10/09 0852 138/70 10/09 0634 98.3 64 20 180/86 92 Intake & Output 10/10 0800 10/10 0000 10/09 1600 Intake Total 250 Output Total 300 Balance -50 Intake, Oral 250 Output, Urine 300 Physical Exam General Appearance: Alert, Cooperative, No Acute Distress HEENT: Atraumatic Cardiovascular: Normal S1, Normal S2, No Murmurs Lungs: Clear to Auscultation, Normal Air Movement Abdomen: Normal Bowel Sounds, Soft, No Tenderness Extremities: No Cyanosis, No Edema, Normal Pulses Current Medications: Current Medications Sig/Delicia Start time Last Medication Dose Route Stop Time Status Admin Acetaminophen 650 MG Q6P PRN 10/05 1800 DCD PO Acetaminophen 1,000 MG Q6P PRN 10/05 1800 DCD IV Amlodipine Besylate 5 MG DAILY 10/06 1423 DCD 10/09 PO 0852 Artificial Tears 2 GTT 4 TIMES/DAY PRN 10/06 1130 DCD 10/07 OPH 0848 Aspirin 81 MG DAILY 10/06 1600 DCD 10/09 PO 0852 Carbidopa/Levodopa 1 TAB BID 10/06 1502 DCD 10/09 PO 0852 Ciprofloxacin 500 MG DAILY 10/09 1000 DCD 10/09 PO 10/13 0959 1138 Heparin Sodium 5,000 UNIT Q8 10/05 2200 DCD 10/09 (Porcine) SC 1317 Hydromorphone HCl 0.5 MG Q6-PRN PRN 10/05 1800 DCD 10/06 IV 1044 Metoprolol Succinate 25 MG DAILY 10/06 1503 DCD 10/09 PO 0852 Sevelamer Carbonate 800 MG WM 10/06 0800 DCD 10/09 PO 1317 Sodium Bicarbonate 1,300 MG TID 10/06 1000 DCD 10/09 PO 0852 Zinc Sulfate 220 MG DAILY 10/06 1000 DCD 10/09 PO 0852 Assessment/Plan Assessment: Patient is 81-year-old male with past medical history significant for Parkinson' s disease,BPH status post TURP and chronic Neri's catheter due to neurogenic bladder, stage V CK D refusing dialysis, history of hydronephrosis status post ureteral stent, history of sigmoid volvulus status post subtotal colectomy, ileostomy and bilateral hernia repair in 2015, bilateral hip replacement came in from [facility] to be evaluated for abnormal lab, shaking chills and fever. Admitted for Neri associated UTI Admitted to general medicine floor Problem list 1. Neri associated urinary tract infection 2. Hyperkalemia: 3. CKD stage V 4. History of HTN 5. History of BPH s/p TURP 6. neurogenic bladder with indwelling Neri's catheter 7. History of Parkinson's disease 8. History of sigmoid volvulus status post subtotal ileostomy CAUTI - catheter associated UTI patient had recurrent infections in the past 6 months and grew pseudomonas resistant to ciprofloxacin. Started on ceftaz IV Q24hrs as per renal dosing. Intially hydrated with 2L NS, as Blood pressure remained stable discontinued fluids. Urology consulted due to recurrent infections. patient will need 2 weeks total of abx. urine is growing Klebsiella sensitive to cipro, bactrim, augmentin but has documented pcn allergy. on questioning about the allergy patient said he has never had any symptoms but it is documented. Unsure of why. To be careful we will prescribe renal dosing of cipro 500mg bid for 9 days for a total of 14 days treatment. Cr. is still high 3.3. we will instruct extended care facility to take Cr. levels. Hyperkalemia resolved Found to have K of 6.1 in the facility - treated with suadxalate, Dextrose/ insulin, Calcium gluconate. Repeat K today is 4.8. Chronic indwelling neri catheter We removed neri as it is draining purulent urine. started on straight cath protocol q6 with 600-800 drained each time and it is done 4x a day. we will provide instructions for ECF to straight cath patient. Neurogenic bladder was consulted who suggested to place a suprapubic catheter as it is associated with lower risk for infections. Hopefully at rehab facility the nurses can teach the patient and his home staging specialist to do it. If intermittent cath is just not possible at home then suprapubic tube would be the next option. Patient will follow up with him outpatient. History of parkinsons disease Continue sinamet 25/100mg BID History of HTN Continue amlodipine and ASA 81mg metoprolol stage V CKD patient refused dialysis. Medically managed with sodium biacrbonate 1300mg TID and sevelamir 800mg WM PO. Disposition Patient is set to go to [facility] tomorrow but we will call the daughter Joi before he leaves to update her. We attempted to call her today to no avail. DVT prophylaxis SC heparin Code status full code dilaudid .5q6 for pain tylenol 650 and 1000mg Problem List: 1. Sepsis due to urinary tract infection Pain Ratin Pain Location: buttocks Pain Goal: Pain 7 or less Pain Plan: diaudid Tomorrow's Labs & Rationales: cbc bep Consulting Request: Consulting Specialty: Urology Consulting Physician: Reason for Consult: Reyna Brower 10/09/17 1250: Attending MD Review Statement Attending Statement Attending MD Statement: examined this patient, discuss w/resident/PA/BANKING MANAGEMENT CONSULTING MANAGER, agreed w/resident/PA/BANKING MANAGEMENT CONSULTING MANAGER, discussed with family, reviewed EMR data (avail), discussed with nursing, discussed with case mgmt, reviewed images, amended to note Attending Assessment/Plan: Patient seen/examined bedside. Patient needs his leaking ileostomy to be changed. Nurse notified. Patient is on PO ciprofloxacin for CAUTI with removal of catheter as per urology. Patient can be discharged to rehab and intermittent cath as per urology. Inform daughter about dc plans. f/u case management.
[2017-10-09] MEDS ORDERED: CIPRO500 M1 PO (12:41)
[2017-10-09 13:53] VITALS: BP 150/70
[2017-10-09 15:38] VITALS: BP 150/70
== END 2017-10-09 16:38 | DRG 699 ==
LOC: ERH 13:05 → 2NA 16:02 → ERHI 16:02 → ENRESERV 18:08 → ENTRNSPT 18:50 → EDTRNSPTSTS 18:54 → 2NA 19:15 → CMPTRNSPT 19:17 → 2NA 19:22
PROVIDERS: Physician Assistant Medical; Student in an Organized Health Care Education/Training Program
DX: T83.518A Infection and inflammatory reaction due to other urinary catheter, initial encounter (principal); N39.0 Urinary tract infection, site not specified; L89.312 Pressure ulcer of right buttock, stage 2; E87.5 Hyperkalemia; N18.5 Chronic kidney disease, stage 5; G20 Parkinson's disease; L89.322 Pressure ulcer of left buttock, stage 2; I48.2 Chronic atrial fibrillation; I12.9 Hypertensive chronic kidney disease with stage 1 through stage 4 chronic kidney disease, or unspecified chronic kidney disease; N40.0 Benign prostatic hyperplasia without lower urinary tract symptoms; Z79.82 Long term (current) use of aspirin; N31.9 Neuromuscular dysfunction of bladder, unspecified
CPT/HCPCS: 2NAP; 36415; 71045; 81001; 82436; 87040; 87086; 87804; 87804-59; 93005; 93010; 96361; 96374; 96375; 97110-GO; 97116-GO; 97161-GP; 97530-GO; J0610; J0713; J1644; J3490

== ENCOUNTER 2017-11-10 17:59 | Emergency (ER) | payer OTHER, MEDICARE ==
[~2017-11-10] VITALS: Ht 180.3 cm; Wt 83.9 kg
[~2017-11-10 17:59] MED LIST changes: +CARBIDOPA-LEVO1 EAC7 PO; +CIPRO500 M1 PO; +MULTI-DAY PLUS1 EAC1 PO; +TOPROL XL25 M1 PO
--- NOTE | 2017-11-10 18:08 | ED GENERAL ADULT ---
History of Present Illness General Chief Complaint: Male Genitourinary Problems Stated Complaint: BIBA ?UTI Source: patient, family, old records, EMS, [facility] Exam Limitations: no limitations Vital Signs & Intake/Output Vital Signs & Intake/Output Vital Signs Date Time Temp Pulse Resp B/P B/P Pulse O2 O2 Flow FiO2 Mean Ox Delivery Rate 11/10 2223 97.5 64 18 168/79 95 Room Air 11/10 2041 Room Air 11/10 2021 97.0 72 18 171/78 97 Room Air 11/10 1807 97.6 62 16 109/58 95 Room Air Allergies Coded Allergies: Penicillins (UNKNOWN 06/05/17) Triage Note: BIBA FROM [facility] FOR POSSIBLE UTI. PT GETS STRAIGHT CATHED EVERY 6 HOURS. HAS BEEN SHAKING AND HAS LOWER BACK PAIN. FAMILY WANTED TO TO BE ASSED BY MD INSTEAD OF FACILITY JUST SENDING OFF U/A CULTURE. PT AWAKE, ALERT ORIENTED. SKIN WARM AND DRY. COMPLAINING OF LOWER BACK PAIN EXTENDING DOWN RIGHT LEG Triage Nurses Notes Reviewed? yes HPI: Patient sent in for evaluation for possible UTI. Patient has frequent UTIs. Patient was discharged from the hospital a month ago after admission for a catheter associated UTI. Patient began shaking and experiencing low back pain earlier today. His symptoms are very similar to prior cases of UTI. The facility wanted to send the urine and then treat him but the family wanted him evaluated in the emergency department first. Patient denies any pain however he does have an achy sensation in his low back. There is no radiation. No aggravating or mitigating factors. He rates it as mild on the scale. He denies any fevers or chills. There is no nausea or vomiting. (Lorena VILLA,Jerome Paige) Reconcile Medications Acetaminophen (Acephen) 650 MG SUPP.RECT 1 SUPP AL Q6H PRN PAIN/TEMP>101 ( Reported) Acetaminophen 325 MG TABLET 2 TAB PO Q6H PRN PAIN/TEMP>101 (Reported) Amlodipine Besylate 5 MG TABLET 1 TAB PO DAILY HTN Aspirin (Ecotrin*) 81 MG TABLET.DR 1 TAB PO QAM HEART/BLOOD (Reported) Bisacodyl (Dulcolax) 10 MG SUPP.RECT 1 SUP RC DAILY PRN CONSTIPATION ( Reported) Carbidopa/Levodopa (Carbidopa-Levodopa 25-100 Tab) 25 MG-100 MG TABLET 1.5 TAB PO 4XDAILY parkinsons disease (Reported) Ferrous Sulfate 325 MG (65 MG IRON) TABLET 1 TAB PO TID SUPPLEMENT (Reported) Guaifenesin (Adult Wal-Tussin) 100 MG/5 ML LIQUID 10 ML PO Q6H PRN MUCUS ( Reported) Metoprolol Tartrate 25 MG TABLET 0.5 TAB PO BID HEART/BP (Reported) Multivitamin-Min/Iron/FA/Vit K (Multi-Day Plus Minerals Tablet) 18 MG IRON-400 MCG-25 MCG TABLET 1 TAB PO DAILY SUPPLEMENT (Reported) Na Phos,M-B/Na Phos,Di-Ba (Fleet Enema) 19 GRAM-7 GRAM/118 ML ENEMA 1 E RC DAILY PRN CONSTIPATION (Reported) Sevelamer Carbonate (Renvela) 800 MG TABLET 1 TAB PO TIDWM KIDNEYS (Reported) Sodium Bicarbonate 325 MG TABLET 1,300 MG PO TID kidney failure Zinc Sulfate 220 MG TABLET 1 TAB PO QAM SUPPLEMENT (Reported) (Kiko VILLA,Elijah) Past History Travel History Traveled to [place] past 21 day No Medical History Any Pertinent Medical History? see below for history Neurological: NONE EENT: NONE Cardiovascular: AFIB, hypertension Respiratory: NONE Gastrointestinal: upper GI bleed, BOWEL OBSTRUCTION COLOSTOMY PLACEMENT Hepatic: NONE Renal: benign prost hyperplasia, CHRONIC KIDNEY DISEASE HYDRONEPHROSIS Musculoskeletal: BILAT HIP FX'S (L HIP) Psychiatric: NONE Endocrine: NONE Blood Disorders: anemia, DVT Cancer(s): melanoma [employer]/Reproductive: NONE History of MRSA: No History of VRE: No History of CDIFF: No Influenza Vaccine: 06/03/17 Surgical History Surgical History: colon resection (subtotal 09/2015 with ileostomy), hernia repair-umbilical, prostatectomy, HIP (L PARTIAL, R FULL) TURP (left hip) Psychosocial History Who do you live with Spouse Services at Home Home Health Aide, Nursing What is your primary language Togolese Tobacco Use: Quit >30 days ago ETOH Use: denies use Illicit Drug Use: denies illicit drug use Family History Family History, If Any: MOTHER (heart disease skin cancer). Hx Contributory? No (Lorena VILLA,Jerome Paige) Review of Systems Review of Systems Constitutional: Reports: see HPI. EENTM: Reports: no symptoms. Respiratory: Reports: no symptoms. Cardiovascular: Reports: no symptoms. GI: Reports: no symptoms. Genitourinary: Reports: see HPI. Musculoskeletal: Reports: see HPI, back pain. Skin: Reports: no symptoms. Neurological/Psychological: Reports: no symptoms. Hematologic/Endocrine: Reports: no symptoms. Immunologic/Allergic: Reports: no symptoms. All Other Systems: Reviewed and Negative (Lorena VILLA,Jerome Paige) Physical Exam Physical Exam General Appearance: well developed/nourished, alert, awake, anxious, mild distress Head: atraumatic, normal appearance Eyes: Bilateral: PERRL, EOMI. Ears, Nose, Throat: normal pharynx, normal ENT inspection, hearing grossly normal Neck: normal inspection, supple, full range of motion Respiratory: normal breath sounds, chest non-tender, no respiratory distress, lungs clear Cardiovascular: regular rate/rhythm, normal peripheral pulses Gastrointestinal: normal bowel sounds, soft, non-tender, no organomegaly Back: normal inspection, normal range of motion, NO CVA TENDERNESS Extremities: normal inspection, normal capillary refill, normal range of motion, no edema Neurologic/Psych: no motor/sensory deficits, awake, alert, oriented x 3, normal mood/affect Skin: intact, normal color, warm/dry Core Measures ACS in differential dx? No CVA/TIA Diagnosis: No Sepsis Present: No Sepsis Focused Exam Completed? No (Lorena VILLA,Jerome Paige) Progress Differential Diagnoses I considered the following diagnoses in my evaluation of the patient: [UTI, SEPSIS, ELECTROLYTE ABNORMALITY] Plan of Care: Orders Procedure Date/time Status Regular Diet 11/11 B Active EKG 11/10 184 Active Straight Cath 11/10 1806 Active CULTURE,URINE 11/10 1806 Active BLOOD CULTURE 11/10 1806 Active URINALYSIS 11/10 1806 Complete COMPREHENSIVE METABOLIC PANEL 11/10 1806 Complete CBC WITHOUT DIFFERENTIAL 11/10 1806 Complete Laboratory Tests 11/10/17 1855: Anion Gap 12, Estimated GFR 17 L, BUN/Creatinine Ratio 13.5, Glucose 95, Calcium 8.4, Total Bilirubin 0.3, AST 16 L, ALT 13 L, Alkaline Phosphatase 83, Total Protein 6.4, Albumin 3.5, Globulin 2.9, Albumin/Globulin Ratio 1.2, CBC w Diff NO MAN DIFF REQ, RBC 3.22 L, MCV 96.8 H, MCH 31.5 H, MCHC 32.6 L, RDW 15.4 H, MPV 8.2, Gran % 62.6, Lymphocytes % 15.3 L, Monocytes % 16.7 H, Eosinophils % 5.0, Basophils % 0.4, Absolute Granulocytes 5.8, Absolute Lymphocytes 1.4, Absolute Monocytes 1.6 H, Absolute Eosinophils 0.5, Absolute Basophils 0 11/10/17 1845: Urinalysis LIGHT H, Urine Color STRAW, Urine Clarity HAZY H, Urine pH 6.0, Ur Specific [place] 1.025, Urine Protein 100 H, Urine Ketones NEG, Urine Nitrite NEG, Urine Bilirubin NEG, Urine Urobilinogen 0.2, Ur Leukocyte Esterase LARGE H , Ur Microscopic SEDIMENT EXAMINED, Urine RBC 1-3, Urine WBC > 75 H, Urine Bacteria FEW H, Urine Hemoglobin SMALL H, Urine Glucose NEG Microbiology 11/10 1907 BLOOD: Blood Culture - RECD 11/10 1854 BLOOD: Blood Culture - RECD 11/10 1844 URINE ROUT: Urine Culture - RECD Initial ED EKG: NSR, nonspecific ST T wave chg Hand-Off Endorsed To: Elijah Hoover MD Endorsed Time: 1910 Pending: labs (Jerome Carrillo MD) Departure Departure Condition: Stable Referrals: Varun VILLA,Emily Jiménez (PCP/Family) Departure Forms: Customer Survey General Discharge Information (Jerome Carrillo MD) Departure Time of Disposition: 2257 Disposition: ACUTE REHAB FACILITY Clinical Impression Primary Impression: UTI (urinary tract infection) Secondary Impressions: Chronic kidney disease Prescriptions: Current Visit Scripts Sulfamethoxazole/Trimethoprim (Bactrim Ds Tablet) 1 TAB PO BID #20 TAB (Elijah Hoover MD) Critical Care Note Critical Care Note Critical Care Time: mins: (Jerome Carrillo MD)
[2017-11-10] MEDS ORDERED: METOPROLOL TART25 M1 PO (19:23)
[2017-11-10] MEDS ORDERED: ACEPHEN650 M1 PR (19:25)
[2017-11-10] MEDS ORDERED: DULCOLAX10 M1 RC (19:26)
[2017-11-10] MEDS ORDERED: ACETAMINOPHEN325 M2 PO (19:26)
[2017-11-10] MEDS ORDERED: FLEET ENEMA133 ML RC (19:27)
[2017-11-10] MEDS ORDERED: ADULT WAL-100 MG/5 M PO (19:28)
[2017-11-10 19:29] LABS: ABSOLUTE BASOPHIL COUNT 0 /CUMM (0.0-0.2); ABSOLUTE EOSINOPHIL COUNT 0.5 /CUMM (0.0-0.7); ABSOLUTE GRANULOCYTE CT 5.8 /CUMM (1.4-6.5); ABSOLUTE LYMPH COUNT 1.4 /CUMM (1.2-3.4); ABSOLUTE MONOCYTE COUNT 1.6 /CUMM (0.10-0.60); BASOPHIL % 0.4 % (0.0-2.0); HEMATOCRIT 31.2 % (42-52); MEAN CORPUSCULAR HGB 31.5 PG (27.0-31.0); MEAN CORPUSCULAR HGB CONC 32.6 G/DL (33.0-37.0); MEAN CORPUSCULAR VOLUME 96.8 FL (80.0-94.0); MEAN PLATELET VOLUME 8.2 FL (7.4-10.4); PLATELET COUNT 261 /CUMM (130-400); RBC DISTRIBUTION WIDTH 15.4 % (11.5-14.5); RED BLOOD CELL CT 3.22 /CUMM (4.70-6.10); WHITE BLOOD CELL COUNT 9.3 /CUMM (4.8-10.8)
--- NOTE | 2017-11-10 19:30 | RADIOLOGY REPORT ---
EXAMINATION: XR PORTABLE CHEST CLINICAL INFORMATION: Chills. Question pneumonia. COMPARISON: None TECHNIQUE: Portable frontal view of the chest was obtained. FINDINGS: The heart size is borderline enlarged. Pulmonary vascularity is normal. The lungs are well-expanded and clear. No gross bony abnormality seen. IMPRESSION: Borderline cardiomegaly. Otherwise no acute process seen.
[2017-11-10 19:32] LABS: GRANULOCYTE % 62.6 % (42.2-75.2)
[2017-11-10 22:24] VITALS: BP 168/79
[2017-11-10] MEDS ORDERED: BACTRIM DS TAB1 EACH PO (22:59)
== END 2017-11-10 23:15 ==
LOC: ERH 17:59
PROVIDERS: Emergency Medicine
DX: N39.0 Urinary tract infection, site not specified (principal); N18.9 Chronic kidney disease, unspecified
CPT/HCPCS: 71045; 81001; 87040; 87086; 93005; 93010; 96374; J0713; J7040

== ENCOUNTER 2018-01-16 08:00 | Inpatient (IN) | payer OTHER, MEDICARE ==
[~2018-01-16] VITALS: Ht 180.3 cm; Wt 83.6 kg
[~2018-01-16 08:00] MED LIST changes: +ACEPHEN650 M1 PR; +ACETAMINOPHEN325 M2 PO; +ADULT WAL-100 MG/5 M PO; +BACTRIM DS TAB1 EACH PO; +DULCOLAX10 M1 RC; +FLEET ENEMA133 ML RC
[2018-01-16 08:36] LABS: ABSOLUTE BASOPHIL COUNT 0 /CUMM (0.0-0.2); ABSOLUTE EOSINOPHIL COUNT 0 /CUMM (0.0-0.7); ABSOLUTE GRANULOCYTE CT 11.2 /CUMM (1.4-6.5); ABSOLUTE LYMPH COUNT 0.7 /CUMM (1.2-3.4); ABSOLUTE MONOCYTE COUNT 1.2 /CUMM (0.10-0.60); BASOPHIL % 0 % (0.0-2.0); EOSINOPHIL % 0.2 % (0-5); GRANULOCYTE % 85.6 % (42.2-75.2); HEMATOCRIT 43.1 % (42-52); MEAN CORPUSCULAR HGB 30.9 PG (27.0-31.0); MEAN CORPUSCULAR HGB CONC 32.8 G/DL (33.0-37.0); MEAN CORPUSCULAR VOLUME 94.3 FL (80.0-94.0); MEAN PLATELET VOLUME 8.1 FL (7.4-10.4); PLATELET COUNT 321 /CUMM (130-400); RBC DISTRIBUTION WIDTH 15.9 % (11.5-14.5); RED BLOOD CELL CT 4.57 /CUMM (4.70-6.10); WHITE BLOOD CELL COUNT 13.1 /CUMM (4.8-10.8)
--- NOTE | 2018-01-16 09:43 | ED GI/GU/ABDOMINAL COMPLAINT ---
History of Present Illness General Chief Complaint: Male Genitourinary Problems Stated Complaint: UTI Source: patient, family, old records Exam Limitations: no limitations Vital Signs & Intake/Output Vital Signs & Intake/Output Vital Signs Date Time Temp Pulse Resp B/P B/P Pulse O2 O2 Flow FiO2 Mean Ox Delivery Rate 01/16 1340 97.9 90 20 154/82 96 Room Air 01/16 1043 98.1 98 18 162/86 96 01/16 0808 98.0 98 20 153/84 96 Room Air Allergies Coded Allergies: Penicillins (RASH 01/16/18) Reconcile Medications Acetaminophen 500 MG TABLET 2 TAB PO TID PRN PAIN (Reported) Amlodipine Besylate 5 MG TABLET 1 TAB PO DAILY HTN Aspirin (Ecotrin*) 81 MG TABLET.DR 1 TAB PO QAM HEART/BLOOD (Reported) Carbidopa/Levodopa (Carbidopa-Levodopa 25-100 Tab) 25 MG-100 MG TABLET 1 TAB PO 4XDAILY TREMORS (Reported) Ferrous Sulfate 325 MG (65 MG IRON) TABLET 1 TAB PO TID SUPPLEMENT (Reported) Metoprolol Tartrate 25 MG TABLET 0.5 TAB PO BID HEART/BP (Reported) Multivitamin-Min/Iron/FA/Vit K (Multi-Day Plus Minerals Tablet) 18 MG IRON-400 MCG-25 MCG TABLET 1 TAB PO DAILY SUPPLEMENT (Reported) Sevelamer Carbonate (Renvela) 800 MG TABLET 1 TAB PO TIDWM KIDNEYS (Reported) Sodium Bicarbonate 325 MG TABLET 1,300 MG PO TID kidney failure Zinc Sulfate 220 MG TABLET 1 TAB PO QAM SUPPLEMENT (Reported) Triage Note: PT BIBA FROM HOME. PT STATES HIS LEGS ARE STIFF AND HE HAS BURNING WITH URINATION. PT STATES THESE ARE THE SYMPTOMS HE GETS WITH A UTI. Triage Nurses Notes Reviewed? yes Onset: Afternoon Duration: hour(s):, constant, continues in ED Timing: recent history Quality/Severity: moderate Activities at Onset: rest Prior Abdominal Problems: similar symptoms Past Sexual History: Unobtainable at this time No Modifying Factors: none Associated Symptoms: dysuria, weakness HPI: 1 day prior to admission patient complains of chills bilateral lower extremity weakness difficulty ambulating and dysuria. There's been no fever nausea vomiting diarrhea abdominal pain chest pain cough shortness breath headache dysuria rash bleeding. Past History Travel History Traveled to [place] past 21 day No Medical History Any Pertinent Medical History? 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 Hx Contributory? No Review of Systems Review of Systems Constitutional: Reports: see HPI, malaise. EENTM: Reports: no symptoms. Respiratory: Reports: no symptoms. Cardiovascular: Reports: no symptoms. GI: Reports: no symptoms. Genitourinary: Reports: see HPI, dysuria. Musculoskeletal: Reports: no symptoms. Skin: Reports: no symptoms. Neurological/Psychological: Reports: see HPI, other. Hematologic/Endocrine: Reports: no symptoms. Immunologic/Allergic: Reports: no symptoms. All Other Systems: Reviewed and Negative Physical Exam Physical Exam General Appearance: well developed/nourished, alert, awake, anxious, mild distress, obese Head: atraumatic, normal appearance Eyes: Bilateral: normal appearance, PERRL, EOMI. Ears, Nose, Throat, Mouth: hearing grossly normal, moist mucous membrane Neck: normal inspection, supple, full range of motion, normal alignment Respiratory: normal breath sounds, chest non-tender, no respiratory distress, quiet respiration, lungs clear Cardiovascular: regular rate/rhythm, normal peripheral pulses, norml femoral pulses equa Peripheral Pulses: 4+ carotid (R), 4+ carotid (L) Gastrointestinal: normal bowel sounds, soft, non-tender, no organomegaly Male Genitals: normal genitalia Back: normal inspection, normal range of motion Extremities: normal range of motion, no ligament instability Neurologic/Psych: awake, alert, motor weakness Skin: intact, normal color, warm/dry Core Measures ACS in differential dx? No Sepsis Present: No Sepsis Focused Exam Completed? No Progress Differential Diagnosis: pyelonephritis, UTI/pyelo Plan of Care: Orders Procedure Date/time Status CBC WITHOUT DIFFERENTIAL 01/17 06 Active BASIC ELECTROLYTES PLUS BUN&CR 01/17 0600 Active Regular Diet 01/16 B Active BLOOD CULTURE 01/16 132 Active Patient Data 01/16 1307 Active OXYGEN SETUP (GEN) 01/16 1244 Active Saline Lock 01/16 1244 Active Admit to inpatient 01/16 1244 Active Vital Signs 01/16 1244 Active Activity/Ambulation 01/16 1244 Active Code Status 01/16 1244 Active Intake & Output 01/16 0824 Active COMPREHENSIVE METABOLIC PANEL 01/16 0820 Complete CBC WITHOUT DIFFERENTIAL 01/17 820 Complete CULTURE,URINE 01/16 811 Active URINALYSIS 01/16 08 Complete Laboratory Tests 01/16/18 0815: Anion Gap 16, Estimated GFR 18 L, BUN/Creatinine Ratio 12.7, Glucose 104 H, Calcium 9.3, Total Bilirubin 0.7, AST 10 L, ALT 15 L, Alkaline Phosphatase 96, Total Protein 8.1, Albumin 4.5, Globulin 3.6, Albumin/Globulin Ratio 1.3, CBC w Diff NO MAN DIFF REQ, RBC 4.57 L, MCV 94.3 H, MCH 30.9, MCHC 32.8 L, RDW 15.9 H, MPV 8.1, Gran % 85.6 H, Lymphocytes % 5.3 L, Monocytes % 8.9, Eosinophils % 0.2, Basophils % 0, Absolute Granulocytes 11.2 H, Absolute Lymphocytes 0.7 L , Absolute Monocytes 1.2 H, Absolute Eosinophils 0, Absolute Basophils 0 01/16/18 0811: Urine Color YEL, Urine Clarity HAZY H, Urine pH 6.5, Ur Specific [place] 1.010, Urine Protein 30 H, Urine Ketones NEG, Urine Nitrite NEG, Urine Bilirubin NEG, Urine Urobilinogen 0.2, Ur Leukocyte Esterase LARGE H, Ur Microscopic SEDIMENT EXAMINED, Urine RBC 5-10 H, Urine WBC 10-15 H, Urine Bacteria MANY H, Urine Hemoglobin SMALL H, Urine Glucose NEG Microbiology 01/16 1322 BLOOD: Blood Culture - ORD 01/16 1322 BLOOD: Blood Culture - ORD 01/16 811 URINE ROUT: Urine Culture - RECD Initial ED EKG: none Comments: Unable to ambulate without 2 person assist or return to bed. Departure Departure Disposition: STILL A PATIENT Condition: Stable Clinical Impression Primary Impression: UTI (urinary tract infection) with pyuria Secondary Impressions: Chronic renal insufficiency, Leukocytosis, Multifactorial gait disorder Referrals: Brennen VILLA,Sorin Rasmussen (PCP/Family) Departure Forms: Customer Survey General Discharge Information Admission Note Spoke With: Alba Rice MD Documentation of Exam: Documentation of any treatments & extenuating circumstances including Concerns Regarding Discharge (functional status, medication knowledge or non-compliance, living conditions, etc.) that warrant an admission rather than observation: Follow cultures IV antibiotic medication adjustment physical therapy ID evaluation ensure safety continuing care discharge planning
[2018-01-16] MEDS ORDERED: ACETAMINOPHEN500 M4 PO (13:03)
--- NOTE | 2018-01-16 14:56 | History & Physical ---
ValentineLiliana 01/16/18 1456: General Information and HPI MD Statement: I have seen and personally examined BENITEZ PEREIRA SR and documented this H&P. The patient is a 82 year old M who presented with a patient stated chief complaint of []. Source of Information: patient, old records Exam Limitations: no limitations History of Present Illness: Patient is 81-year-old male with past medical history significant for Parkinson' s disease,BPH status post TURP and recurrent UTI due to neurogenic bladder, stage V CKD , history of hydronephrosis status post ureteral stent, history of sigmoid volvulus status post subtotal colectomy, ileostomy and bilateral hernia repair in 2016, bilateral hip replacement came in from home with chief complaint of weakness and pain while doing self-catheterization. Patient reports that he has been feeling weak for 5 days especially in the legs and also feeling burning while self catheterizing himself for urine for couple of days and today he was so weak that he was unable to walk and was brought to the hospital. Patient also reports that he felt feverish today. Patient denies any chest pain, nausea, vomiting, abdominal pain, headache. In the ED around 1100 urine was removed from bladder after catheterization. And also he needs two assist for ambulation. Patient's has received 1 dose of IV ceftazidime in the ED due to multiple UTIs with varous germs before Vitals in ED were stable Labs notable for WBC 13.1, creatinine 3.3 which is baseline, UA large leukocyte esterase with many bacteria and WBC 10-15 No EKG was present in the chart Allergies/Medications Allergies: Coded Allergies: Penicillins (RASH 01/16/18) Past History Travel History Traveled to [place] past 21 day No Medical History Neurological: NONE EENT: NONE Cardiovascular: AFIB, hypertension Respiratory: NONE Gastrointestinal: upper GI bleed, BOWEL OBSTRUCTION COLOSTOMY PLACEMENT Hepatic: NONE Renal: benign prost hyperplasia, CHRONIC KIDNEY DISEASE HYDRONEPHROSIS Musculoskeletal: BILAT HIP FX'S (L HIP) Psychiatric: NONE Endocrine: NONE Blood Disorders: anemia, DVT Cancer(s): melanoma 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 Psychosocial History Who Do You Live With? self Services at Home: Home Health Aide, Nursing Primary Language: Icelandic ETOH Use: occasional use Illicit Drug Use: denies illicit drug use Functional Ability ADLs Independent: dressing, eating, toileting, bathing. Ambulation: walker IADLs Needs Assist: shopping, housework, finances, food prep, telephone, transportation, medication admin. Sexual History Past Sexual History Unobtainable at this time Review of Systems Review of Systems Constitutional: Reports: see HPI. Exam & Diagnostic Data Last 24 Hrs of Vital Signs/I&O Vital Signs Date Time Temp Pulse Resp B/P B/P Pulse O2 O2 Flow FiO2 Mean Ox Delivery Rate 01/16 1340 97.9 90 20 154/82 96 Room Air 01/16 1043 98.1 98 18 162/86 96 01/16 0808 98.0 98 20 153/84 96 Room Air Intake & Output 01/16 1600 01/16 0800 01/16 0000 Intake Total Output Total 2200 Balance -2200 Output, Stool 100 Output, Urine 2100 Patient 83.007 kg Weight Weight Reported by Patient Measurement Method Physical Exam General Appearance Alert, Oriented X3, Cooperative Cardiovascular Regular Rate, Normal S1, Normal S2 Lungs Clear to Auscultation Abdomen No Tenderness, illostomy functional Neurological Normal Speech Extremities BL +1 leg edema Assessment/Plan Assessment: Patient is 81-year-old male with past medical history significant for Parkinson' s disease,BPH status post TURP and recurrent UTI due to neurogenic bladder, stage V CKD , history of hydronephrosis status post ureteral stent, history of sigmoid volvulus status post subtotal colectomy, ileostomy and bilateral hernia repair in 2016, bilateral hip replacement came in from home with chief complaint of weakness and pain while doing self-catheterization. In the ED around 1100 urine was removed from bladder after catheterization. And also he needs two assist for ambulation. Patient's has received 1 dose of IV ceftazidime in the ED due to multiple UTIs with varous germs before Vitals in ED were stable Labs notable for WBC 13.1, creatinine 3.3 which is baseline, UA large leukocyte esterase with many bacteria and WBC 10-15 No EKG was present in the chart Assessment UTI and weakness History of CKD History of BPH status post TURP History of self-catheterization and neurogenic bladder History of Parkinson's History of bowel surgery with ileostomy bag History of elevated troponin and hypertension Plan Admit to general medicine floor Continue ceftaz based on GFR 1 g daily Continue medications for CKD, Parkinson's Continue aspirin, Norvasc, low-dose metoprolol Urine culture & blood culture 2 Urology recommended putting Rossi in we will follow up the note PT eval in the morning Full code, DVT prophylaxis is mechanical and subcu heparin, renal diet, Tylenol as needed for pain As Ranked By This Provider Problem List: 1. UTI (lower urinary tract infection) Core Measures/Misc (06/06) Acute Coronary Syndrome ACS Diagnosis: No Congestive Heart Failure Congestive Heart Failure Diagnosis No Cerebrovascular Accident CVA/TIA Diagnosis: No VTE (View Protocol) VTE Risk Factors Age>40 No Mechanical VTE Prophylaxis d/t N/A MechProphylax Ordered No VTE Pharm Prophylaxis d/t NA PharmProphylax ordered Sepsis (View protocol) Sepsis Present: Yes [facility] 01/16[facility]18 1722: General Information and HPI Allergies/Medications Home Med list Acetaminophen 500 MG TABLET 2 TAB PO TID PRN PAIN (Reported) Amlodipine Besylate 5 MG TABLET 1 TAB PO DAILY HTN Aspirin (Ecotrin*) 81 MG TABLET.DR 1 TAB PO QAM HEART/BLOOD (Reported) Carbidopa/Levodopa (Carbidopa-Levodopa 25-100 Tab) 25 MG-100 MG TABLET 1 TAB PO 4XDAILY TREMORS (Reported) Ferrous Sulfate 325 MG (65 MG IRON) TABLET 1 TAB PO TID SUPPLEMENT (Reported) Metoprolol Tartrate 25 MG TABLET 0.25 TAB PO BID HEART/BP (Reported) Multivitamin-Min/Iron/FA/Vit K (Multi-Day Plus Minerals Tablet) 18 MG IRON-400 MCG-25 MCG TABLET 1 TAB PO DAILY SUPPLEMENT (Reported) Sevelamer Carbonate (Renvela) 800 MG TABLET 1 TAB PO TIDWM KIDNEYS (Reported) Sodium Bicarbonate 325 MG TABLET 1,300 MG PO TID kidney failure Zinc Sulfate 220 MG TABLET 1 TAB PO QAM SUPPLEMENT (Reported) Attending MD Review Statement Attending Statement Attending MD Statement: examined this patient, discuss w/resident/PA/CURED MEAT PACKING SUPERVISOR, agreed w/resident/PA/CURED MEAT PACKING SUPERVISOR, discussed with family, reviewed EMR data (avail), discussed with nursing, amended to note Attending Assessment/Plan: Patient is an 82-year-old male with medical history significant for Parkinson's disease, benign prostatic hypertrophy status post TURP procedure, intermittent catheterization for neurogenic bladder, history of hydronephrosis status post ureteral stent placement, repeated urinary tract infections due to indwelling Rossi catheter. 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 Brought in by family to the ER for evaluation due to complaints of chills and weakness with increasing difficulty ambulating. Family reports that these of symptoms patient gets when he is developing a urinary tract infection. He was brought to the ER for evaluation. He arrived afebrile hemodynamically stable. Physical examination revealed no focal findings however patient required 2 person assist in the emergency room which is not his baseline. He was found to have an elevated white count an abnormal UA. He was referred to the medical service for further management of his urinary tract infection and deconditioning. Patient seen and examined. Alert and oriented 3. Conversant appropriately. Review of systems noncontributory other than as reported above. Ileostomy bag containing liquid stool. Patient's leukocytosis does raise concern for an underlying infectious process. He is afebrile hemodynamically poor chills at home. He has grown different organisms in the urine in the past. During his last hospitalization he grew Klebsiella. He does have urine culture after that that grew Pseudomonas resistant to ciprofloxacin. Recommendations: Admit to inpatient medical service. Antibiotic therapy with IV cefazolin pending culture results. Physical therapy to mobilize patient We will refer his urology service of patient's admission Continue intermittent catheterization 4 times a day as recommended by his urologist.
[2018-01-16 16:00] VITALS: BP 148/84
--- NOTE | 2018-01-16 17:23 | Admission Certification ---
Admission Certification Certification Statement - As attending physician, I certify that at the time of - admission, based on clinical presentation, severity of - symptoms, need for further diagnostic testing and - therapeutic interventions, and risk of adverse outcomes - without in-hospital treatment, in my clinical assessment, - this patient requires an acute hospital stay for a minimum - of two nights or longer. I have also considered psychsocial - factors such as support system, advanced age, financial - issues, cognitive issues, and failed out-patient treatments, - past re-admission history, safety of patient, and lack of - compliance as applicable. Specific rationale supporting this admission is: Patient requires hospitalization for management of his urinary tract infection.
[2018-01-16 21:36] VITALS: BP 110/68
[2018-01-17 06:51] VITALS: BP 120/72
--- NOTE | 2018-01-17 07:10 | PN- Housestaff ---
Terri Heard MD,Ami 01/17/18 0710: Subjective Follow-up For: UTI Weakness Subjective: Patient visited today, was sitting at the bedside comfortably in no acute distress, was alert and oriented. Daughter at the bedside No fever or chills, no shortness of breathing, no chest pain, no other events. recomended to ambulate patient. Review of Systems Constitutional: Reports: see HPI. Objective Last 24 Hrs of Vital Signs/I&O Vital Signs Date Time Temp Pulse Resp B/P B/P Pulse O2 O2 Flow FiO2 Mean Ox Delivery Rate 01/17 1454 97.4 72 18 124/70 96 01/17 1059 81 120/72 01/17 1058 81 120/72 01/17 0651 97.5 73 20 120/72 92 01/16 2136 98.2 85 20 110/68 94 01/16 2051 85 110/68 Intake & Output 01/17 1600 01/17 0800 01/17 0000 Intake Total 1350 120 120 Output Total 325 600 650 Balance 1025 -480 -530 Intake, IV 0 Intake, Oral 1350 120 120 Output, Stool 325 150 150 Output, Urine 450 500 Patient 193 lb Weight Physical Exam General Appearance: Alert, Oriented X3, Cooperative, No Acute Distress Skin Temp/Moisture Exam: Warm/Dry Sepsis Skin Exam (color): Normal for Ethnicity HEENT: Atraumatic, EOMI Cardiovascular: Normal S1, Normal S2 Lungs: Normal Air Movement Abdomen: Soft, No Tenderness Current Medications: Current Medications Sig/Delicia Start time Last Medication Dose Route Stop Time Status Admin Acetaminophen 650 MG Q6P PRN 01/16 1530 AC PO Amlodipine Besylate 5 MG DAILY 01/17 09 AC 01/17 PO 1059 Aspirin Buffered 81 MG QAM 01/17 0900 AC 01/17 PO 1100 Carbidopa/Levodopa 1 TAB Q6 01/16 1800 AC 01/17 PO 1233 Ceftazidime 1,000 MG DAILY 01/17 0900 AC 01/17 IV 1059 Diphenhydramine HCl 1 SADIQ TID 01/17 1601 AC TOP Ferrous Sulfate 325 MG TID 01/16 2100 AC 01/17 PO 1441 Heparin Sodium 5,000 UNIT Q8 01/16 2200 AC 01/17 (Porcine) SC 1441 Metoprolol Tartrate 6.25 MG BID 01/16 2100 AC 01/17 PO 1058 Multivitamins 1 TAB DAILY 01/17 0900 AC 01/17 PO 1058 Patient Medication 1 ED ONE ONE 01/17 1500 DC Teaching ED 01/17 1501 Sevelamer Carbonate 800 MG WM 01/16 1700 AC 01/17 PO 1233 Sodium Bicarbonate 1,300 MG TID 01/16 2100 AC 01/17 PO 1440 Zinc Sulfate 220 MG DAILY 01/17 0900 AC 01/17 PO 1059 Last 24 Hrs of Lab/Arturo Results Last 24 Hrs of Labs/Mics: Laboratory Tests 01/17/18 0625: Anion Gap 12, Estimated GFR 17 L, BUN/Creatinine Ratio 14.6, CBC w Diff NO MAN DIFF REQ, RBC 3.59 L, MCV 94.0, MCH 31.9 H, MCHC 33.9, RDW 15.8 H, MPV 8.8, Gran % 65.5, Lymphocytes % 16.5 L, Monocytes % 15.1 H, Eosinophils % 2.4, Basophils % 0.5, Absolute Granulocytes 5.6, Absolute Lymphocytes 1.4, Absolute Monocytes 1.3 H, Absolute Eosinophils 0.2, Absolute Basophils 0 Assessment/Plan Assessment: Patient is 81-year-old male with past medical history significant for Parkinson' s disease,BPH status post TURP and recurrent UTI due to neurogenic bladder, stage V CKD , history of hydronephrosis status post ureteral stent, history of sigmoid volvulus status post subtotal colectomy, ileostomy and bilateral hernia repair in 2016, bilateral hip replacement came in from home with chief complaint of weakness and pain while doing self-catheterization. In the ED around 1100 urine was removed from bladder after catheterization. And also he needs two assist for ambulation. Patient's has received 1 dose of IV ceftazidime in the ED due to multiple UTIs with varous germs before Vitals in ED were stable Labs notable for WBC 13.1, creatinine 3.3 which is baseline, UA large leukocyte esterase with many bacteria and WBC 10-15 No EKG was present in the chart Assessment UTI and weakness History of CKD History of BPH status post TURP History of self-catheterization and neurogenic bladder History of Parkinson's History of bowel surgery with ileostomy bag History of elevated troponin and hypertension Plan Continue admission to general medicine floor AMBULATE patient Continue ceftaz based on GFR 1 g daily Consider to change to Po before discharge tommorrow Contniue home medicaiotn Continue medications for CKD, Parkinson's Continue aspirin, Norvasc, low-dose metoprolol Follow final Urine cultur, currently GNR Urology recommended putting Rossi Follow Urology PT eval recommended STR Full code, DVT prophylaxis is mechanical and subcu heparin, renal diet, Tylenol as needed for pain Problem List: 1. UTI (urinary tract infection) with pyuria 2. Weakness Pain Ratin Pain Location: None Pain Goal: Pain 4 or less Pain Plan: Continue currnet plan Tomorrow's Labs & Rationales: CBC BEP Dwayne VILLAAlba 01/17/18 1259: Attending MD Review Statement Attending Statement Attending MD Statement: examined this patient, discuss w/resident/PA/COUNTRY DIRECTOR, agreed w/resident/PA/COUNTRY DIRECTOR, discussed with family, reviewed EMR data (avail), discussed with nursing, discussed with case mgmt, amended to note Attending Assessment/Plan: Patient seen and examined the medical team. Daughter present at the bedside. She reports that patient was brought to the ER for evaluation due to complaints of lower extremity weakness and difficulty walking. At baseline she reports patient is able to ambulate with aid of a walker and supervision. He however was unable to do so on the day of presentation. She reported he had chills and dysuria at home. In the emergency room daughter reports that the ER staff found it difficult to mobilize patient. He complained of weakness and fatigue. This morning patient was evaluated by the physical therapy service. They reported maximum assist of 2 to get the patient up and mobilize with a walker. Patient admits that he still very weak and not back to his baseline. However patient and daughter are eager for him to be discharged home. They feel that the more time he spends on bedrest the more deconditioned he will be. They do acknowledge that he is not yet at his baseline. He is currently afebrile. White cell count has returned to normal. Reports mild dysuria. Urine cultures are currently growing gram-negative rods. Recommendations: -Continue antibiotic therapy with IV ceftaz. Follow-up urine culture identification and sensitivity. He will antibiotic therapy accordingly. -Continue physical therapy as tolerated. Assistive has been advised to mobilize patient at least 2 more times again today. - His urology service was notified of his hospitalization, requested a Rossi catheter to be placed. Please notify his primary urologist Dr. Shin once he returns.
[2018-01-17 08:19] LABS: ABSOLUTE BASOPHIL COUNT 0 /CUMM (0.0-0.2); ABSOLUTE EOSINOPHIL COUNT 0.2 /CUMM (0.0-0.7); ABSOLUTE GRANULOCYTE CT 5.6 /CUMM (1.4-6.5); ABSOLUTE LYMPH COUNT 1.4 /CUMM (1.2-3.4); ABSOLUTE MONOCYTE COUNT 1.3 /CUMM (0.10-0.60); BASOPHIL % 0.5 % (0.0-2.0); EOSINOPHIL % 2.4 % (0-5); GRANULOCYTE % 65.5 % (42.2-75.2); MEAN CORPUSCULAR HGB 31.9 PG (27.0-31.0); MEAN CORPUSCULAR HGB CONC 33.9 G/DL (33.0-37.0); MEAN PLATELET VOLUME 8.8 FL (7.4-10.4); PLATELET COUNT 270 /CUMM (130-400); RBC DISTRIBUTION WIDTH 15.8 % (11.5-14.5); RED BLOOD CELL CT 3.59 /CUMM (4.70-6.10); WHITE BLOOD CELL COUNT 8.6 /CUMM (4.8-10.8)
[2018-01-17 08:48] LABS: HEMATOCRIT 33.8 % (42-52)
[2018-01-17 14:54] VITALS: BP 124/70
[2018-01-17 21:30] VITALS: BP 162/84
[2018-01-18 06:10] VITALS: BP 122/78
--- NOTE | 2018-01-18 07:13 | PN- Housestaff ---
Terri Heard MD,[facility] 01/18/18 0713: Subjective Follow-up For: UTI Subjective: Patient visited today, was sitting at comfortably in no acute distress, was alert and oriented. No fever or chills, no shortness of breathing, no chest pain, no other events. COmplained of weakness. Patient reported morning rigiditiy/low BP that improves during the day. PT recommended STIR, case managing at compensation with patient and his daughter , they agreed to go to the [facility], Antibiotics changed to ceftin daily considering renal function and allergy to peniciline. Review of Systems Constitutional: Reports: see HPI. Objective Last 24 Hrs of Vital Signs/I&O Vital Signs Date Time Temp Pulse Resp B/P B/P Pulse O2 O2 Flow FiO2 Mean Ox Delivery Rate 01/18 1055 84 156/98 01/18 0851 708 156/98 01/18 0851 70 89/51 01/18 0610 98.7 69 20 122/78 93 Room Air 01/17 2130 98.0 79 18 162/84 94 Room Air 01/17 2116 79 162/84 01/17 1454 97.4 72 18 124/70 96 Intake & Output 01/18 1600 01/18 0800 01/18 0000 Intake Total Output Total 675 850 Balance -675 -850 Output, Stool 100 450 Output, Urine 575 400 Patient 184 lb Weight Physical Exam General Appearance: Alert, Oriented X3, Cooperative, No Acute Distress HEENT: Atraumatic, EOMI Cardiovascular: Normal S1, Normal S2 Lungs: Normal Air Movement Abdomen: Soft, No Tenderness, ileostomy Neurological: slowed speach Extremities: No Edema Current Medications: Current Medications Sig/Delicia Start time Last Medication Dose Route Stop Time Status Admin Acetaminophen 650 MG Q6P PRN 01/16 1530 AC PO Amlodipine Besylate 5 MG DAILY 01/17 0900 AC 01/18 PO 1055 Amoxicillin/ 500 MG Q12 01/18 09 DC 01/18 Clavulanate Potassium PO 1055 Artificial Tears 2 GTT 4 TIMES/DAY PRN 01/18 0745 AC 01/18 OPH 0841 Aspirin Buffered 81 MG QAM 01/17 09 AC 01/18 PO 0842 Carbidopa/Levodopa 1 TAB Q6 01/16 1800 AC 01/18 PO 0522 Ceftazidime 1,000 MG DAILY 01/17 09 DC 01/18 IV 0841 Cefuroxime Sodium 250 MG ONCE ONE 01/18 1130 DC PO 01/18 1131 Diphenhydramine HCl 1 SADIQ TID 01/17 1601 AC 01/17 TOP 2120 Ferrous Sulfate 325 MG TID 01/16 2100 AC 01/18 PO 0842 Heparin Sodium 5,000 UNIT Q8 01/16 2200 AC 01/18 (Porcine) SC 0523 Metoprolol Tartrate 6.25 MG BID 01/16 2100 AC 01/18 PO 0851 Multivitamins 1 TAB DAILY 01/17 0900 AC 01/18 PO 0842 Patient Medication 1 ED ONE ONE 01/17 1500 DC 01/17 Teaching ED 01/17 1501 1757 Sevelamer Carbonate 800 MG WM 01/16 1700 AC 01/18 PO 0842 Sodium Bicarbonate 1,300 MG TID 01/16 2100 AC 01/18 PO 0842 Zinc Sulfate 220 MG DAILY 01/17 0900 AC 01/18 PO 0842 Last 24 Hrs of Lab/Arturo Results Last 24 Hrs of Labs/Mics: Laboratory Tests 01/18/18 0727: Anion Gap 14, Estimated GFR 17 L, BUN/Creatinine Ratio 16.3, CBC w Diff NO MAN DIFF REQ, RBC 3.46 L, MCV 94.5 H, MCH 31.2 H, MCHC 33.0, RDW 15.8 H, MPV 8.5 , Gran % 63.2, Lymphocytes % 16.6 L, Monocytes % 13.7 H, Eosinophils % 5.6 H, Basophils % 0.9, Absolute Granulocytes 5.2, Absolute Lymphocytes 1.4, Absolute Monocytes 1.1 H, Absolute Eosinophils 0.5, Absolute Basophils 0.1 Assessment/Plan Assessment: Patient is 81-year-old male with past medical history significant for Parkinson' s disease,BPH status post TURP and recurrent UTI due to neurogenic bladder, stage V CKD , history of hydronephrosis status post ureteral stent, history of sigmoid volvulus status post subtotal colectomy, ileostomy and bilateral hernia repair in 2016, bilateral hip replacement came in from home with chief complaint of weakness and pain while doing self-catheterization. In the ED around 1100 urine was removed from bladder after catheterization. And also he needs two assist for ambulation. Patient's has received 1 dose of IV ceftazidime in the ED due to multiple UTIs with varous germs before Vitals in ED were stable Labs notable for WBC 13.1, creatinine 3.3 which is baseline, UA large leukocyte esterase with many bacteria and WBC 10-15 Patient was admitted to GM floor for management of following conditions: - UTI and weakness - History of CKD, BPH status post TURP, self-catheterization and neurogenic bladder, Parkinson's, bowel surgery with ileostomy bag, elevated troponin and hypertension Plan - Continue admission to general medicine floor - AMBULATE patient - initially started on ceftaz based on GFR 1 g daily, changed to oral Ceftin daily considering renal function - Contniue home medicaiotn - Urology recommended putting Rossi, will follow regarding discharge recommendations - PT eval recommended STR Full code, DVT prophylaxis is mechanical and subcu heparin, renal diet, Tylenol as needed for pain Problem List: 1. Urinary (tract) obstruction 2. Weakness Pain Ratin Pain Location: None Pain Goal: Pain 4 or less Pain Plan: Continue current plan Tomorrow's Labs & Rationales: None Alba Rice MD 01/18/18 1020: Attending MD Review Statement Attending Statement Attending MD Statement: examined this patient, discuss w/resident/PA/LONG TERM CARE SOCIAL WORKER, agreed w/resident/PA/LONG TERM CARE SOCIAL WORKER, reviewed EMR data (avail), discussed with nursing, discussed with case mgmt, amended to note Attending Assessment/Plan: Patient seen and examined. Resting comfortably not in any acute distress. No issues overnight reported by nursing staff. This morning nursing staff reported his blood pressure to be in the 80s systolic. Patient was asymptomatic. Blood pressure has been stable through the admission. Blood pressure was repeated without any intervention with a systolic blood pressure in the 150s. He remains afebrile. He is alert and oriented 3. Urine culture currently growing Klebsiella. Patient is allergic to penicillin. Patient was seen by physical therapy today. Although a little better he remains deconditioned and they are recommending [facility] for [facility]term [facility]. Patient reports that 3 weeks ago his daughter made an appointment for the patient to go to outpatient physical therapy. His first appointment was supposed to be yesterday. Patient reports that his daughter made the appointment because he has been getting progressively weaker. It appears that his current urinary tract infection has added to his deconditioning. Recommendations: -Patient presented with dysuria. He had no evidence of systemic symptoms, change antibiotic therapy to Ceftin and complete 5 days of treatment. -Follow-up with daughter regarding discharge planning. Physical therapy is currently recommended to [facility] for short-term replication due to deconditioning. After discussion with the patient he is in agreement that he requires additional physical therapy. The patient and daughter are in agreement with this plan patient will be discharged to [facility] once a bed becomes available. -Repeat CBC and chemistry in a.m. only if there is a change in his clinical status.
[2018-01-18 08:28] LABS: ABSOLUTE BASOPHIL COUNT 0.1 /CUMM (0.0-0.2); ABSOLUTE EOSINOPHIL COUNT 0.5 /CUMM (0.0-0.7); ABSOLUTE GRANULOCYTE CT 5.2 /CUMM (1.4-6.5); ABSOLUTE LYMPH COUNT 1.4 /CUMM (1.2-3.4); ABSOLUTE MONOCYTE COUNT 1.1 /CUMM (0.10-0.60); BASOPHIL % 0.9 % (0.0-2.0); EOSINOPHIL % 5.6 % (0-5); GRANULOCYTE % 63.2 % (42.2-75.2); HEMATOCRIT 32.7 % (42-52); MEAN CORPUSCULAR HGB 31.2 PG (27.0-31.0); MEAN CORPUSCULAR VOLUME 94.5 FL (80.0-94.0); MEAN PLATELET VOLUME 8.5 FL (7.4-10.4); PLATELET COUNT 267 /CUMM (130-400); RBC DISTRIBUTION WIDTH 15.8 % (11.5-14.5); RED BLOOD CELL CT 3.46 /CUMM (4.70-6.10); WHITE BLOOD CELL COUNT 8.2 /CUMM (4.8-10.8)
--- NOTE | 2018-01-18 13:37 | Discharge Summary ---
Visit Information Visit Dates Admission Date: 01/16/18 Discharge Date: 01/19/18 Hospital Course Course Attending Physician: Alba Rice MD Primary Care Physician: Sorin Hutton MD Hospital Course: Patient is 81-year-old male with past medical history significant for Parkinson' s disease,BPH status post TURP and recurrent UTI due to neurogenic bladder, stage V CKD , history of hydronephrosis status post ureteral stent, history of sigmoid volvulus status post subtotal colectomy, ileostomy and bilateral hernia repair in 2016, bilateral hip replacement came in from home with chief complaint of weakness and pain while doing self-catheterization. Vitals in ED were stable Labs notable for WBC 13.1, creatinine 3.3 which is baseline, UA large leukocyte esterase with many bacteria and WBC 10-15. Patient was admitted to general medicine floor for management of following conditions: 1. Urinary tract infection Patient was admitted to general medicine floor, she was started empirically on ceftazidime due to the concerns of underlying urinary tract infection. Clinical condition remained stable, urine cultures were positive for Klebsiella pneumoniae. Sensitivity results were used to guide by mouth antibiotic treatment. Patient was allergic to penicillins, accordingly it was decided to complete the course of antibiotic treatment with oral Ceftin for total of 10 days. Rossi cath was removed Patient should be made to do straight cath himself and not have nurses do it because he will have to do it himself when he returns home 2. Generalized weakness/deconditioning: According to the daughter, at baseline patient was able to ambulate with aid of a walker and supervision, however at the time of presentation, the nursing staff found it difficult to mobilize( maximum assist of 2 to get the patient up and mobilize with a walker). Physical therapy consult was obtained, recommended short-term rehabilitation on discharge. Patient was recommended to follow neurologist in outpatient setting. Patient was a stable to be discharged to [facility]. 3. Chronic medical conditions: CKD, BPH status post TURP, self-catheterization and neurogenic bladder, Parkinson's, bowel surgery with ileostomy bag, elevated troponin and hypertension We continued home medication while in hospital. Patient's urologist was contacted, on-call urologist recommended to place a Rossi catheter pending patient's own urologist for discharge recommendations. Patient was stable to be discharged. Allergies: Coded Allergies: Penicillins (RASH 01/16/18) Disposition Summary Disposition Principal Diagnosis: Urinary tract infection Additional Diagnosis: Urinary outflow tract obstruction Discharge Disposition: SNF Discharge Instructions General Discharge Information Code Status: Full Code Patient's Diet: Heart healthy Patient's Activity: As tolerated Follow-Up Instructions/Appts: Please follow with your PCP within one week of discharge. Please follow with urologist within one week of discharge. Please complete course of antibiotics. Please come back to hospital if symptoms worsen. Patient should be made to do straight cath himself and not have nurses do it because he will have to do it himself when he returns home Medications at Discharge Discharge Medications: Continue taking these medications: Sevelamer Carbonate (Renvela) 800 MG TABLET 1 Tablet ORAL TIDWM Qty = 270 Comments: Last Taken: 01/19/18 Time: 0830 AM Aspirin (Ecotrin*) 81 MG TABLET.DR 1 Tablet ORAL Every Morning Comments: Last Taken: 01/19/18 Time: 0830 AM Multivitamin-Min/Iron/FA/Vit K (Multi-Day Plus Minerals Tablet) 18 MG IRON-400 MCG-25 MCG TABLET 1 Tablet ORAL DAILY Comments: Last Taken: 01/19/18 Time: 0830 AM Ferrous Sulfate (Ferrous Sulfate) 325 MG (65 MG IRON) TABLET 1 Tablet ORAL THREE TIMES DAILY Comments: Last Taken: 01/19/18 Time: 0830 AM Zinc Sulfate (Zinc Sulfate) 220 MG TABLET 1 Tablet ORAL Every Morning Comments: Last Taken: 01/19/18 Time: 0830 AM Sodium Bicarbonate (Sodium Bicarbonate) 325 MG TABLET 1,300 Milligram ORAL THREE TIMES DAILY Qty = 60 Comments: Last Taken: 01/19/18 Time: 0830 AM Amlodipine Besylate (Amlodipine Besylate) 5 MG TABLET 1 Tablet ORAL DAILY Qty = 30 Comments: Last Taken: 01/19/18 Time: 0830 AM Carbidopa/Levodopa (Carbidopa-Levodopa 25-100 Tab) 25 MG-100 MG TABLET 1 Tablet ORAL 4XDAILY Comments: Last Taken: 01/19/18 Time: 0540 AM Metoprolol Tartrate (Metoprolol Tartrate) 25 MG TABLET 0.25 Tablet ORAL TWICE DAILY Comments: Last Taken: 01/19/18 Time: 0830 AM Acetaminophen (Acetaminophen) 500 MG TABLET 2 Tablet ORAL THREE TIMES DAILY as needed for PAIN Comments: NOT GIVEN IN HOSPITAL Start taking the following new medications: Cefuroxime Axetil (Cefuroxime) 250 MG TABLET 250 Milligram ORAL DAILY Qty = 7 No Refills Comments: NOT GIVEN IN HOSPITAL Copies To: Martha VILLA,Michael Tillman; Brennen VILLA,Sorin Rasmussen Attending MD Review Statement Documenting Attending: Alba Rice MD Other Findings: Discharged in stable condition.
[2018-01-18 14:22] VITALS: BP 158/72
--- NOTE | 2018-01-18 18:47 | RADIOLOGY REPORT ---
EXAMINATION: XR HIP, RIGHT CLINICAL INFORMATION: Pain in right hip. COMPARISON: Right hip 02/15/2016 TECHNIQUE: Two views of the right hip. FINDINGS: Status post right hip replacement. Orthopedic components intact. No radiographic evidence of loosening. No fracture. No dislocation. IMPRESSION: Status post right hip replacement. No acute abnormality.
[2018-01-18 22:00] VITALS: BP 150/92
[2018-01-19 00:14] VITALS: BP 184/102
[2018-01-19 03:00] VITALS: BP 168/96
[2018-01-19 06:19] VITALS: BP 168/98
--- NOTE | 2018-01-19 07:07 | PN- Housestaff ---
Terri Heard MD,[facility] 01/19/18 0707: Subjective Follow-up For: UTI Subjective: Patient visited today, was sitting comfortably at bedside in no acute distress, was alert and oriented. No fever or chills, no shortness of breathing, no chest pain, no other events. COmplained of weakness, PT recommended [facility]. Antibiotics changed to ceftin daily considering renal function and allergy to peniciline for 10 days per Uro consult. Rossi removed, patient needs to to [facility] cath protocol by himslef. Review of Systems Constitutional: Reports: see HPI. Objective Last 24 Hrs of Vital Signs/I&O Vital Signs Date Time Temp Pulse Resp B/P B/P Pulse O2 O2 Flow FiO2 Mean Ox Delivery Rate 01/19 1129 97.5 68 20 168/90 01/19 0827 168/90 01/19 0827 168/90 01/19 0619 97.5 68 20 168/98 95 / 0300 168/96 01/19 0206 85 184/104 01/19 0014 184/102 01/18 2228 90 182/100 01/18 2200 97.6 85 19 96 Room Air 01/18 2020 85 150/92 Intake & Output 01/19 1600 01/19 0800 01/19 0000 Intake Total 720 900 Output Total 1150 750 Balance -430 150 Intake, Oral 720 900 Output, Stool 250 300 Output, Urine 900 450 Patient 184 lb Weight Weight Bed scale Measurement Method Physical Exam General Appearance: Alert, Oriented X3, Cooperative, No Acute Distress Skin: No Significant Lesion Sepsis Skin Exam (color): Normal for Ethnicity HEENT: Atraumatic, EOMI Neck: No JVD Cardiovascular: Normal S1, Normal S2 Lungs: Normal Air Movement Abdomen: Soft, No Tenderness, ileostomy Extremities: No Edema Current Medications: Current Medications Sig/Delicia Start time Last Medication Dose Route Stop Time Status Admin Acetaminophen 650 MG Q6P PRN 01/16 1530 DCD PO Amlodipine Besylate 5 MG ONCE ONE 01/18 2145 DC 01/18 PO 01/188 Amlodipine Besylate 5 MG DAILY 01/17 09 DCD 01/19 PO 0827 Artificial Tears 2 GTT 4 TIMES/DAY PRN 01/18 0745 DCD 01/18 OPH 0841 Aspirin Buffered 81 MG QAM 01/17 900 DCD 01/19 PO 0828 Carbidopa/Levodopa 1 TAB Q6 01/16 1800 DCD 01/19 PO 0541 Cefuroxime Sodium 250 MG DAILY 01/19 0900 DCD PO Diphenhydramine HCl 1 SADIQ TID 01/17 1601 DCD 01/17 TOP 2120 Ferrous Sulfate 325 MG TID 01/16 2100 DCD 01/19 PO 0826 Heparin Sodium 5,000 UNIT Q8 01/16 2200 DCD 01/19 (Porcine) SC 0540 Metoprolol Tartrate 6.25 MG ONCE ONE 01/19 0145 DC 01/19 PO 01/19 0146 0206 Metoprolol Tartrate 6.25 MG BID 01/16 2100 DCD 01/19 PO 0827 Multivitamins 1 TAB DAILY 01/17 0900 DCD 01/19 PO 0828 Patient Medication 1 ED ONE ONE 01/19 1100 AR Teaching ED 01/19 1101 Patient Medication 1 ED ONE ONE 01/18 1815 DC 01/18 [facility] ED 01/18 1816 2021 Sevelamer Carbonate 800 MG WM 01/16 1700 DCD 01/19 PO 0826 Sodium Bicarbonate 1,300 MG TID 01/16 2100 DCD 01/19 PO 0826 Zinc Sulfate 220 MG DAILY 01/17 0900 DCD 01/19 PO 0826 Last 24 Hrs of Lab/Arturo Results Last 24 Hrs of Labs/Mics: Laboratory Tests 01/18/184: Troponin I 0.02, Vitamin B12 489, 25-OH Vitamin D Total 19.2 L, Folate 19.8 Assessment/Plan Assessment: Patient is 81-year-old male with past medical history significant for Parkinson' s disease,BPH status post TURP and recurrent UTI due to neurogenic bladder, stage V CKD , history of hydronephrosis status post ureteral stent, history of sigmoid volvulus status post subtotal colectomy, ileostomy and bilateral hernia repair in 2016, bilateral hip replacement came in from home with chief complaint of weakness and pain while doing self-catheterization. Vitals in ED were stable Labs notable for WBC 13.1, creatinine 3.3 which is baseline, UA large leukocyte esterase with many bacteria and WBC 10-15. Patient was admitted to general medicine floor for management of following conditions: 1. Urinary tract infection Patient was admitted to general medicine floor, she was started empirically on ceftazidime due to the concerns of underlying urinary tract infection. Clinical condition remained stable, urine cultures were positive for Klebsiella pneumoniae. Sensitivity results were used to guide by mouth antibiotic treatment. Patient was allergic to penicillins, accordingly it was decided to complete the course of antibiotic treatment with oral Ceftin for total of 10 days. Rossi cath was removed Patient should be made to do straight cath himself and not have nurses do it because he will have to do it himself when he returns home 2. Generalized weakness/deconditioning: According to the daughter, at baseline patient was able to ambulate with aid of a walker and supervision, however at the time of presentation, the nursing staff found it difficult to mobilize( maximum assist of 2 to get the patient up and mobilize with a walker). Physical therapy consult was obtained, recommended short-term rehabilitation on discharge. Patient was recommended to follow neurologist in outpatient setting. Patient was a stable to be discharged to [facility]. 3. Chronic medical conditions: CKD, BPH status post TURP, self-catheterization and neurogenic bladder, Parkinson's, bowel surgery with ileostomy bag, elevated troponin and hypertension We continued home medication while in hospital. Patient's urologist was contacted, on-call urologist recommended to place a Rossi catheter pending patient's own urologist for discharge recommendations. Patient was stable to be discharged. Problem List: 1. Urinary (tract) obstruction Pain Ratin Pain Location: none Pain Goal: Pain 4 or less Pain Plan: Not applicable Tomorrow's Labs & Rationales: None Dwayne VILLA,[place]ts[place] 01/19/18 1028: Attending Review Statement Attending Statement Attending MD Statement: examined this patient, discuss w/resident/PA/HAND INSERTER OPERATOR, agreed w/resident/PA/HAND INSERTER OPERATOR, reviewed EMR data (avail), discussed with nursing, discussed with case mgmt, amended to note Attending Assessment/Plan: Patient seen and examined. Sitting comfortably in his chair. Complains of fatigue this morning. Denies pain. Remains very deconditioned requiring short- term rehabilitation. Patient and his daughter are in agreement with being discharged to [facility] for short-term rehab. He was seen by his urologist is recommending discontinuation of Rossi catheter and intermittent catheterization 4 times a day. Patient was also in agreement with this plan. His urology service is recommending 10 days of antibiotic therapy. Patient is medically stable to be discharged today. Blood pressure was elevated overnight but this has resolved this morning. Blood pressures remained acceptable on his current medication regimen. He is noted to be mildly anemic with an elevated MCV. Follow B12 levels and provide supplementation as needed.
--- NOTE | 2018-01-19 07:27 | Patient Discharge Instructions ---
Discharge Instructions General Discharge Information You were seen/treated for: Urinary tract infection Urinary tract obstruction Watch for these problems: Severe weakness, dizziness, fever, chills, shortness of breathing, cough, sputum worsening of any other symptoms Special Instructions: Please follow with your PCP within one week of discharge. Please follow with urologist within 1 week of discharge. Please complete the course of antibiotics Please come back to hospital if symptoms worsen Patient should be made to do straight cath himself and not have nurses do it because he will have to do it himself when he returns home Diet Continue normal diet: No Recommended Diet: Heart Healthy Activity Full Activity/No Limits: No Activity Self Limited: Yes (as tolerated) Acute Coronary Syndrome Inclusion Criteria At DC or during hospital stay patient has or had the following: ACS DIAGNOSIS No Discharge Core Measures Meds if any: Prescribed or Continued at Discharge Meds if any: NOT Prescribed or Continued at Discharge Congestive Heart Failure Inclusion Criteria At DC or during hospital stay patient has or had the following: CHF DIAGNOSIS No Discharge Core Measures Meds if any: Prescribed or Continued at Discharge Meds if any: NOT Prescribed or Continued at Discharge Cerebrovascular accident Inclusion Criteria At DC or during hospital stay patient has or had the following: CVA/TIA Diagnosis No Discharge Core Measures Meds if any: Prescribed or Continued at Discharge Meds if any: NOT Prescribed or Continued at Discharge Venous thromboembolism Inclusion Criteria VTE Diagnosis No VTE Type NONE VTE Confirmed by (Test) NONE Discharge Core Measures - Per Current guidelines, there needs to be overlap - treatment for the first 5 days of Warfarin therapy. - If discharged on Warfarin prior to 5 days of - overlap therapy, the patient will need to be - assessed for post discharge needs including - *Post discharge parental anticoagulation - *Warfarin and/or parental anticoagulation education - *Follow up date to check INR post discharge At least 5 days overlap therapy as Inpatient No Meds if any: Prescribed or Continued at Discharge Note: Overlap Therapy is Warfarin and Anticoagulant Meds if any: NOT Prescribed or Continued at Discharge
[2018-01-19] MEDS ORDERED: CEFUROXIME250 M1 PO ×2 (07:28→09:32)
--- NOTE | 2018-01-19 08:12 | Cons- Urology ---
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 He was initially managed with an indwelling neri but had multiple hospital admission due to urosepsis from the neri. With considerable effort he was able to learn self intermittent catheterization. [facility] and was found to have a klebsiella UTI. At the time of admission a neri was placed and 1,100 cc urine obtained because he was too weak to cath himself at home. He has improved with abx. Allergies/Medications Allergies: Coded Allergies: Penicillins (RASH 01/16/18) Home Med List: Acetaminophen 500 MG TABLET 2 TAB PO TID PRN PAIN (Reported) Amlodipine Besylate 5 MG TABLET 1 TAB PO DAILY HTN Aspirin (Ecotrin*) 81 MG TABLET.DR 1 TAB PO QAM HEART/BLOOD (Reported) Carbidopa/Levodopa (Carbidopa-Levodopa 25-100 Tab) 25 MG-100 MG TABLET 1 TAB PO 4XDAILY TREMORS (Reported) Cefuroxime Axetil (Cefuroxime) 250 MG TABLET 250 MG PO DAILY UTI Ferrous Sulfate 325 MG (65 MG IRON) TABLET 1 TAB PO TID SUPPLEMENT (Reported) Metoprolol Tartrate 25 MG TABLET 0.25 TAB PO BID HEART/BP (Reported) Multivitamin-Min/Iron/FA/Vit K (Multi-Day Plus Minerals Tablet) 18 MG IRON-400 MCG-25 MCG TABLET 1 TAB PO DAILY SUPPLEMENT (Reported) Sevelamer Carbonate (Renvela) 800 MG TABLET 1 TAB PO TIDWM KIDNEYS (Reported) Sodium Bicarbonate 325 MG TABLET 1,300 MG PO TID kidney failure Zinc Sulfate 220 MG TABLET 1 TAB PO QAM SUPPLEMENT (Reported) Past History Medical History Neurological: NONE EENT: NONE Cardiovascular: AFIB, hypertension Respiratory: NONE Gastrointestinal: upper GI bleed, BOWEL OBSTRUCTION COLOSTOMY PLACEMENT Hepatic: NONE Renal: benign prost hyperplasia, CHRONIC KIDNEY DISEASE HYDRONEPHROSIS Musculoskeletal: BILAT HIP FX'S (L HIP) Psychiatric: NONE Endocrine: NONE Blood Disorders: anemia, DVT Cancer(s): melanoma DITCHER/Reproductive: NONE Surgical History Pertinent Surgical History: colon resection (subtotal 09/2015 with ileostomy), hernia repair-umbilical, prostatectomy, HIP (L PARTIAL, R FULL) TURP (left hip) Family History Relations & Conditions If Any: MOTHER (heart disease skin cancer). Psychosocial History Who Do You Live With? self Services at Home: Home Health Aide, Nursing Primary Language: Turkmen Smoking Status: Never Smoked ETOH Use: occasional use Illicit Drug Use: denies illicit drug use Functional Ability ADLs Independent: dressing, eating, toileting, bathing. Ambulation: walker IADLs Needs Assist: shopping, housework, finances, food prep, telephone, transportation, medication admin. Exam & Diagnostic Data Vital Signs and I&O Vital Signs Date Time Temp Pulse Resp B/P B/P Pulse O2 O2 Flow FiO2 Mean Ox Delivery Rate 01/19 0619 97.5 68 20 168/98 95 01/19 0206 85 184/104 01/19 0014 184/102 01/18 2228 90 182/100 01/18 2200 97.6 85 19 96 Room Air 01/18 2020 85 150/92 01/18 1422 97.9 72 20 158/72 93 Room Air 01/18 1214 Room Air 01/18 1055 84 156/98 01/18 0851 708 156/98 01/18 0851 70 89/51 Intake & Output 01/19 1600 01/19 0800 01/19 0000 01/18 1600 01/18 0800 01/18 0000 Intake Total 720 900 700 Output Total 1150 750 550 950 850 Balance -430 150 150 -950 -850 Intake, Oral 720 900 700 Output, Stool 250 300 50 375 450 Output, Urine 900 450 500 575 400 Patient 184 lb 184 lb Weight Weight Bed scale Measurement Method Genitalia: neri in place draining clear urine Assessment/Plan Assessment/Plan Imp: 1. Urinary retention due to atonic bladder 2. CKD 3. atrophic R kidney 4. L vesico-ureteral reflux 5 UTI Plan: 1. In order to preserve his renal fxn he requires bladder drainage. Since UTI rate is lowest with intermittent cath this is the preferable method, as he was doing prior to admission 2. Would remove neri and str cath q 6 hours. This can be done at STR. Patient should be made to do it himself and not have nurses do it because he will have to do it himself when he returns home 3. Would complete a 10 day course of abx 4. Above discussed with patient and his daughter Consult Acknowledgment - Thank you for your consult request.
[2018-01-19 11:29] VITALS: BP 168/90
== END 2018-01-19 12:00 | DRG 690 ==
LOC: ERH 08:00 → 2NB 12:44 → ERHI 12:44 → ENRESERV 13:28 → ENTRNSPT 14:41 → EDTRNSPTSTS 14:56 → 2NB 15:06 → CMPTRNSPT 15:16 → 2NB 01-19 07:26 → ENPENDDIS 01-19 09:38 → 2NB 01-19 12:00
PROVIDERS: Emergency Medicine; Internal Medicine; Radiology Vascular & Interventional Radiology
DX: N39.0 Urinary tract infection, site not specified (principal); G20 Parkinson's disease; I12.0 Hypertensive chronic kidney disease with stage 5 chronic kidney disease or end stage renal disease; N18.5 Chronic kidney disease, stage 5; N31.9 Neuromuscular dysfunction of bladder, unspecified; N40.1 Benign prostatic hyperplasia with lower urinary tract symptoms; Z96.0 Presence of urogenital implants; Z96.643 Presence of artificial hip joint, bilateral; Z90.49 Acquired absence of other specified parts of digestive tract; Z90.79 Acquired absence of other genital organ(s); Z88.0 Allergy status to penicillin; D64.9 Anemia, unspecified; Z93.4 Other artificial openings of gastrointestinal tract status; R33.9 Retention of urine, unspecified; B96.1 Klebsiella pneumoniae [K. pneumoniae] as the cause of diseases classified elsewhere
CPT/HCPCS: 2NBP; 36415; 36592; 73502-RT; 81001; 82436; 87040; 87086; 93005; 93010; 96374; 97110-GO; 97112-GO; 97116-GO; 97162-GP; 97530-GO; J0713; J1644; J3490

== ENCOUNTER 2018-04-02 14:14 | Inpatient (IN) | payer OTHER, MEDICARE ==
[~2018-04-02] VITALS: Ht 180.3 cm; Wt 87.2 kg
[~2018-04-02 14:14] MED LIST changes: +CEFUROXIME250 M1 PO
--- NOTE | 2018-04-02 14:54 | ED GI/GU/ABDOMINAL COMPLAINT ---
History of Present Illness General Chief Complaint: General Adult Stated Complaint: MULTI COMPLAINTS Source: patient, family, old records Exam Limitations: no limitations Vital Signs & Intake/Output Vital Signs & Intake/Output ED Intake and Output 04/06 0000 04/05 1200 Intake Total 400 870 Output Total 1150 1600 Balance -750 -730 Intake, IV 30 Intake, Oral 400 840 Number 0 Bowel Movements Output, Stool 400 700 Output, Urine 750 900 Patient 87.203 kg Weight Allergies Coded Allergies: Penicillins (RASH 01/16/18) Reconcile Medications Acetaminophen 500 MG TABLET 2 TAB PO TID PRN PAIN (Reported) Amlodipine Besylate 5 MG TABLET 1 TAB PO DAILY HTN Aspirin (Ecotrin*) 81 MG TABLET.DR 1 TAB PO QAM HEART/BLOOD (Reported) Ferrous Sulfate 325 MG (65 MG IRON) TABLET 1 TAB PO TID SUPPLEMENT (Reported) Lactobac 40/Bifido 3/S.thermop (Cvs Probiotic 100 Adriano Cell Cap) 100 BILLION CELL CAPSULE 1 CAP PO DAILY ABX USAGE Meropenem 1 GRAM VIAL 1 GM IV Q12H UTI PLEASE FINISH A 2 WEEK COURSE. 1G IV BID Metoprolol Tartrate 25 MG TABLET 0.5 TAB PO BID HEART/BP (Reported) Multivitamin-Min/Iron/FA/Vit K (Multi-Day Plus Minerals Tablet) 18 MG IRON-400 MCG-25 MCG TABLET 1 TAB PO DAILY SUPPLEMENT (Reported) Nystatin 100,000 UNIT/GRAM CREAM..G. 1 SADIQ TOP BID inguinal candidiasis APPLY THIN LAYER TO AFFECTED SKIN BID, please convert to powder in facility per family wishes Sevelamer Carbonate (Renvela) 800 MG TABLET 1 TAB PO TIDWM KIDNEYS (Reported) Sodium Bicarbonate 325 MG TABLET 1,300 MG PO TID kidney failure Zinc Sulfate 220 MG TABLET 1 TAB PO QAM SUPPLEMENT (Reported) Triage Note: 82 YO MALE TO TRIAGE FOR EVAL OF ?UTI AND ABD PAIN. PER AIDE, THEY TRIED TO STRAIGHT CATH PT THIS AM BUT WAS UNABLE TO RETRACT THE SKIN. STATES THAT NEVEER HAPPENED BEFORE" AFEBRILE. Triage Nurses Notes Reviewed? yes HPI: 82M PMH Parkinson's disease,BPH status post TURP and recurrent UTI due to neurogenic bladder, stage V CKD , history of hydronephrosis status post ureteral stent, history of sigmoid volvulus status post subtotal colectomy, ileostomy and bilateral hernia repair in 2016, bilateral hip replacement presenting with an inability to urinate. Patient reports feeling ill and weak for the past 3 weeks. He has been unable to walk due to weakness during that time, but walked with a walker prior to that. He feels ill and has a poor appetite. He straight caths due to atonal bladder, which is performed by his family members regularly. He was straight cathed this morning, and had a small amount of return. When his family tried again this afternoon, they were unable to retract the skin and could not insert the catheter. Patient denies fever, chills, headache, stiff neck, sore throat, chest pain, SOB abdominal pain, flank pain, diarrhea. He reports more pain with catheterization. Past History Travel History Traveled to [place] past 21 day No Medical History Any Pertinent Medical History? see below for history Neurological: NONE EENT: NONE Cardiovascular: AFIB, hypertension Respiratory: NONE Gastrointestinal: upper GI bleed, BOWEL OBSTRUCTION COLOSTOMY PLACEMENT Hepatic: NONE Renal: benign prost hyperplasia, CHRONIC KIDNEY DISEASE HYDRONEPHROSIS Musculoskeletal: BILAT HIP FX'S (L HIP) Psychiatric: NONE Endocrine: NONE Blood Disorders: anemia, DVT Cancer(s): melanoma CANDY SPREADER/Reproductive: NONE History of MRSA: No History of VRE: No History of CDIFF: No Influenza Vaccine: 07/31/11 Surgical History Surgical History: colon resection (subtotal 09/2015 with ileostomy), hernia repair-umbilical, prostatectomy, HIP (L PARTIAL, R FULL) TURP (left hip) Psychosocial History Who do you live with Spouse Services at Home Home Health Aide, Nursing What is your primary language Lao Tobacco Use: Never used Family History Family History, If Any: MOTHER (heart disease skin cancer). Hx Contributory? No Review of Systems Review of Systems Constitutional: Reports: no symptoms. EENTM: Reports: no symptoms. Respiratory: Reports: no symptoms. Cardiovascular: Reports: no symptoms. GI: Reports: no symptoms. Genitourinary: Reports: no symptoms. Musculoskeletal: Reports: no symptoms. Skin: Reports: no symptoms. Neurological/Psychological: Reports: no symptoms. Hematologic/Endocrine: Reports: no symptoms. Immunologic/Allergic: Reports: no symptoms. All Other Systems: Reviewed and Negative Physical Exam Physical Exam General Appearance: well developed/nourished, no apparent distress Head: atraumatic, normal appearance Eyes: Bilateral: normal appearance. Ears, Nose, Throat, Mouth: hearing grossly normal, moist mucous membrane Neck: normal inspection, supple, full range of motion Respiratory: normal breath sounds, no respiratory distress Cardiovascular: regular rate/rhythm Gastrointestinal: soft, non-tender Rectal: deferred Male Genitals: normal genitalia Back: normal inspection, normal range of motion Extremities: normal range of motion Neurologic/Psych: awake, alert, oriented x 3, normal mood/affect Skin: intact, normal color, warm/dry Core Measures ACS in differential dx? No Sepsis Present: No Sepsis Focused Exam Completed? No Progress Differential Diagnosis: hernia, orchitis, prostatitis, pyelonephritis, ureterolithiasis, urinary retention, urethritis, UTI/pyelo Plan of Care: Orders Procedure Date/time Status Regular Diet 04/03 B Active LACTIC ACID 04/02 1717 Active ED Holding Orders 04/02 1630 Active Admit to inpatient 04/02 1630 Active Vital Signs 04/02 1630 Active BLOOD CULTURE 04/02 1610 Active Rossi, Insertion/Removal/Asses 04/02 1515 Active BLOOD CULTURE 04/02 1417 Active LACTIC ACID 04/02 1417 Complete COMPREHENSIVE METABOLIC PANEL 04/02 1417 Complete CBC WITHOUT DIFFERENTIAL 04/02 1417 Complete CULTURE,URINE 04/02 1416 Active URINALYSIS 04/02 1416 Active Current Medications Sig/Delicia Start time Last Medication Dose Stop Time Status Admin Sodium Chloride 1,000 ML ONCE ONE 04/02 1615 AC (Normal Saline 0.9%) 04/02 1714 Sodium Chloride 1,000 ML BOLUS ONE 04/02 1615 AC (Normal Saline 0.9%) 04/02 1814 Laboratory Tests 04/02/18 1532: Urine Color Pending, Urine Clarity Pending, Urine pH Pending, Ur Specific [place] Pending, Urine Protein Pending, Urine Ketones Pending, Urine Nitrite Pending, Urine Bilirubin Pending, Urine Urobilinogen Pending, Ur Leukocyte Esterase Pending, Ur Microscopic SEDIMENT EXAMINED, Urine RBC Pending, Urine Hemoglobin Pending, Urine Glucose Pending 04/02/18 1501: Anion Gap 18 H, Estimated GFR 15 L, BUN/Creatinine Ratio 17.6, Glucose 113 H, Lactic Acid 2.2 H, Calcium 9.5, Total Bilirubin 0.8, AST 22, ALT 43, Alkaline Phosphatase 99, Total Protein 7.7, Albumin 4.4, Globulin 3.3, Albumin/Globulin Ratio 1.3, CBC w Diff MAN DIFF ORDERED, RBC 4.42 L, MCV 94.2 H, MCH 30.9, MCHC 32.8 L, RDW 16.0 H, MPV 8.4, Gran % 95.0 H, Lymphocytes % 1.6 L, Monocytes % 3.4, Eosinophils % 0, Basophils % 0, Absolute Granulocytes 22.5 H, Segmented Neutrophils 88 H, Band Neutrophils 6 H, Absolute Lymphocytes 0.4 L, Lymphocytes 3 L, Monocytes 1 L, Absolute Monocytes 0.8 H, Absolute Eosinophils 0, Absolute Basophils 0, Metamyelocytes 2 H, Platelet Estimate VERIFIED BY SMEAR, Poikilocytosis 1+, Anisocytosis 1+ Microbiology 04/02 1610 BLOOD: Blood Culture - ORD 04/02 1610 BLOOD: Blood Culture - ORD 04/02 1532 URINE ROUT: Urine Culture - RECD 04/02 1516 BLOOD: Blood Culture - RECD 04/02 1515 URINE ROUT: Urine Culture - CAN Cancelled: Cancelled via OE: DUPLICATE ENTRY 04/02 1507 BLOOD: Blood Culture - RECD Diagnostic Imaging: Viewed by Me: CT Scan. Discussed w/RAD: CT Scan. Radiology Impression: PATIENT: BENITEZ PEREIRA SR PRESENT AGE: 82 PATIENT ACCOUNT NO: [id number] : 33 LOCATION: [facility] ORDERING PHYSICIAN: Sorin BROWN SERVICE DATE: 04/02/18 EXAM TYPE: CAT - CT ABD & PELVIS W/O IV CONTRAS EXAMINATION: CT ABDOMEN AND PELVIS WITHOUT CONTRAST CLINICAL INFORMATION: Abdominal pain COMPARISON: CT 08/03/2016 TECHNIQUE: Multidetector volumetric imaging was performed from the superior aspect of the liver through the pubic symphysis. Sagittal and coronal reformatted images were obtained on the technologist's workstation. DLP: 995 mGy -cm FINDINGS: LUNG BASES: There is linear atelectasis versus scarring at the left lung base. There is bibasilar atelectasis. LIVER, GALLBLADDER, AND BILIARY TREE: The liver is grossly unremarkable on this noncontrast study. There is no intrahepatic biliary dilatation. The gallbladder is heterogeneous in appearance. The gallbladder may be slightly distended with small amount of pericholecystic fluid. No layering gallstones are identified. The common bile duct does not appear distended. PANCREAS: There is relative fatty atrophy of the pancreas. SPLEEN: Unremarkable. ADRENAL GLANDS: Unremarkable. KIDNEYS AND URETERS: The kidneys are relatively atrophic in appearance. The right kidney is markedly small compared to the left. There are prominent extrarenal pelvis disease. No convincing acute hydronephrosis. There are several tiny hypodense exophytic lesions which are too small to characterize but statistically most likely represent cysts. BLADDER: Bladder is relatively distended. GASTROINTESTINAL TRACT: Diverting colostomy noted in the right lower abdomen. There are no dilated loops of small or large bowel. No intra-abdominal free air free fluid. LYMPH NODES: Normal. VASCULAR: Moderate calcification involving the abdominal aorta and branches. IVC filter in position. PELVIC VISCERA: Not well assessed secondary to streak artifact related to bilateral hip prostheses. OSSEOUS STRUCTURES: Extensive severe multilevel degenerative changes involving the visualized lower thoracic and lumbar spine. Diffuse osteopenia. IMPRESSION: Limited noncontrast study. 1. Abnormal appearance to the gallbladder. Differential diagnosis of this noncontrast study would include inflammation or infection such as acute cholecystitis. Alternatively, it is difficult to exclude underlying malignancy. Right upper quadrant ultrasound may provide additional diagnostic information. 2. Diverting colostomy. No evidence of bowel obstruction. 3. Markedly limited evaluation of the pelvis secondary to artifact related to bilateral hip prostheses. DICTATED BY: Ariella Rowell MD DATE/TIME DICTATED:04/02/181545 BELT SEWER:VIRGILIO DATE/TIME TRANSCRIBED:1545 CONFIDENTIAL, DO NOT COPY WITHOUT APPROPRIATE AUTHORIZATION. < Electronically signed in Other Vendor System> SIGNED BY: Ariella Rowell MD [id number] Initial ED EKG: normal sinus rhythm, no ST T wave changes Departure Departure Disposition: STILL A PATIENT Condition: Stable Clinical Impression Primary Impression: Sepsis secondary to UTI Secondary Impressions: Acute urinary retention, Atonic bladder, Unable to ambulate Referrals: Brennen VILLA,Sorin Rasmussen (PCP/Family) Departure Forms: Customer Survey General Discharge Information Prescriptions: Current Visit Scripts Lactobac 40/Bifido 3/S.thermop (Cvs Probiotic 100 Adriano Cell Cap) 1 CAP PO DAILY #30 CAP Meropenem 1 GM IV Q12H #23 VIAL PLEASE FINISH A 2 WEEK COURSE. 1G IV BID Nystatin 1 SADIQ TOP BID #1 UNIT APPLY THIN LAYER TO AFFECTED SKIN BID, please convert to powder in facility per family wishes Admission Note Spoke With: Hany Cavazos MD Documentation of Exam: Documentation of any treatments & extenuating circumstances including Concerns Regarding Discharge (functional status, medication knowledge or non-compliance, living conditions, etc.) that warrant an admission rather than observation: SEPSIS SECONDARY TO UTI WITH URINARY RETENTION. WILL ADMIT TO MEDICINE FOR IV ANTIBIOTICS, IV FLUIDS, UROLOGY AND ID CONSULTS
[2018-04-02 15:15] LABS: ABSOLUTE BASOPHIL COUNT 0 /CUMM (0.0-0.2); ABSOLUTE EOSINOPHIL COUNT 0 /CUMM (0.0-0.7); ABSOLUTE GRANULOCYTE CT 22.5 /CUMM (1.4-6.5); ABSOLUTE LYMPH COUNT 0.4 /CUMM (1.2-3.4); ABSOLUTE MONOCYTE COUNT 0.8 /CUMM (0.10-0.60); BASOPHIL % 0 % (0.0-2.0); EOSINOPHIL % 0 % (0-5); HEMATOCRIT 41.7 % (42-52); MEAN CORPUSCULAR HGB 30.9 PG (27.0-31.0); MEAN CORPUSCULAR HGB CONC 32.8 G/DL (33.0-37.0); MEAN CORPUSCULAR VOLUME 94.2 FL (80.0-94.0); MEAN PLATELET VOLUME 8.4 FL (7.4-10.4); PLATELET COUNT 275 /CUMM (130-400); RED BLOOD CELL CT 4.42 /CUMM (4.70-6.10); WHITE BLOOD CELL COUNT 23.7 /CUMM (4.8-10.8)
[2018-04-02] MEDS ORDERED: NITROFURANTOIN50 M1 PO (15:40)
--- NOTE | 2018-04-02 15:57 | CT SCAN REPORT ---
EXAMINATION: CT ABDOMEN AND PELVIS WITHOUT CONTRAST CLINICAL INFORMATION: Abdominal pain COMPARISON: CT 08/03/2016 TECHNIQUE: Multidetector volumetric imaging was performed from the superior aspect of the liver through the pubic symphysis. Sagittal and coronal reformatted images were obtained on the technologist's workstation. DLP: 995 mGy-cm FINDINGS: LUNG BASES: There is linear atelectasis versus scarring at the left lung base. There is bibasilar atelectasis. LIVER, GALLBLADDER, AND BILIARY TREE: The liver is grossly unremarkable on this noncontrast study. There is no intrahepatic biliary dilatation. The gallbladder is heterogeneous in appearance. The gallbladder may be slightly distended with small amount of pericholecystic fluid. No layering gallstones are identified. The common bile duct does not appear distended. PANCREAS: There is relative fatty atrophy of the pancreas. SPLEEN: Unremarkable. ADRENAL GLANDS: Unremarkable. KIDNEYS AND URETERS: The kidneys are relatively atrophic in appearance. The right kidney is markedly small compared to the left. There are prominent extrarenal pelvis disease. No convincing acute hydronephrosis. There are several tiny hypodense exophytic lesions which are too small to characterize but statistically most likely represent cysts. BLADDER: Bladder is relatively distended. GASTROINTESTINAL TRACT: Diverting colostomy noted in the right lower abdomen. There are no dilated loops of small or large bowel. No intra-abdominal free air free fluid. LYMPH NODES: Normal. VASCULAR: Moderate calcification involving the abdominal aorta and branches. IVC filter in position. PELVIC VISCERA: Not well assessed secondary to streak artifact related to bilateral hip prostheses. OSSEOUS STRUCTURES: Extensive severe multilevel degenerative changes involving the visualized lower thoracic and lumbar spine. Diffuse osteopenia. IMPRESSION: Limited noncontrast study. 1. Abnormal appearance to the gallbladder. Differential diagnosis of this noncontrast study would include inflammation or infection such as acute cholecystitis. Alternatively, it is difficult to exclude underlying malignancy. Right upper quadrant ultrasound may provide additional diagnostic information. 2. Diverting colostomy. No evidence of bowel obstruction. 3. Markedly limited evaluation of the pelvis secondary to artifact related to bilateral hip prostheses.
--- NOTE | 2018-04-02 16:36 | History & Physical ---
Keya Morales 04/02/18 8965: General Information and HPI MD Statement: I have seen and personally examined BENITEZ SALES SR and documented this H&P. The patient is a 82 year old M who presented with a patient stated chief complaint of [Sepsis]. 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 Patient was recently admitted to [facility] in 01/2018 with similar complaint and was discharged per Dr. Tavarez's recommendation to straight cath rather than chronic neri to reduce recurrent infection. Patient was from his dauther's home and stated that daughter was doing the straight cath for him. Daughter at bedside confirmed and stated that patient had a recent UTI about 3.5 weeks ago, being treated with Cipro outpatient and ended the ABx course about 1.5 weeks ago. However, 04/01 patient had difficulty getting out of wheelchair due to BLEs weakness, which had been the symptom whenever he got UTI. The daughter called Dr. Thomas and was given Amoxicillin in outpatient, however they only took for one day before presented to the ER. The daughter also questioned regarding a possible cirumcision to faciliate straight cath if this procedure could be done in patient Patient was seeing Dr. Dougherty for his CKD stage IV, which had been stable and was compliant with home meds including Sevelamer and Bicarb tablets. -Baselines: Wheelchair bound During our clinical interaction, patient denied recent travel/sick contacts, fever/lightheadedness/diaphoresis/night sweat/weight change/cough/SOB/Chest Pain /Palpitation/Abdominal pain/bowel movement, or other skin/musculoskeletal/ neurological/mood disorders, or dietary/appetite change. 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 Psychosocial History Who Do You Live With? self Services at Home: Home Health Aide, Nursing Primary Language: Yi Functional Ability ADLs Independent: dressing, eating, toileting, bathing. Ambulation: walker IADLs Needs Assist: shopping, housework, finances, food prep, telephone, transportation, medication admin. Review of Systems Review of Systems Constitutional: Reports: see HPI. Exam & Diagnostic Data Last 24 Hrs of Vital Signs/I&O Vital Signs Date Time Temp Pulse Resp B/P B/P Pulse O2 O2 Flow FiO2 Mean Ox Delivery Rate 04/02 1419 98.1 101 18 144/81 95 Room Air Physical Exam General Appearance Alert, Oriented X3, Cooperative, No Acute Distress Skin No Rashes, No Breakdown, No Significant Lesion Skin Temp/Moisture Exam: Warm/Dry Sepsis Skin Exam (color): Normal for Ethnicity HEENT Atraumatic, PERRLA, EOMI Neck Supple, No JVD Cardiovascular Regular Rate, Normal S1, Normal S2 Lungs Clear to Auscultation, Normal Air Movement Abdomen Normal Bowel Sounds, Soft, No Tenderness, s/p; colectomy Neurological Normal Speech, Strength at 5/5 X4 Ext Extremities No Edema, Normal Pulses Last 24 Hrs of Labs/Arturo: Laboratory Tests 04/02/18 1532: Urine Color YEL, Urine Clarity CLEAR, Urine pH 7.0, Ur Specific [place] 1.015, Urine Protein 100 H, Urine Ketones NEG, Urine Nitrite NEG, Urine Bilirubin NEG, Urine Urobilinogen 0.2, Ur Leukocyte Esterase LARGE H, Ur Microscopic SEDIMENT EXAMINED, Urine RBC 1-3, Urine WBC 50-75 H, Ur Epithelial Cells RARE, Urine Bacteria MANY H, Urine Hemoglobin TRACE-LYSED H, Urine Glucose NEG 04/02/18 1501: Anion Gap 18 H, Estimated GFR 15 L, BUN/Creatinine Ratio 17.6, Glucose 113 H, Lactic Acid 2.2 H, Calcium 9.5, Total Bilirubin 0.8, AST 22, ALT 43, Alkaline Phosphatase 99, Total Protein 7.7, Albumin 4.4, Globulin 3.3, Albumin/Globulin Ratio 1.3, CBC w Diff MAN DIFF ORDERED, RBC 4.42 L, MCV 94.2 H, MCH 30.9, MCHC 32.8 L, RDW 16.0 H, MPV 8.4, Gran % 95.0 H, Lymphocytes % 1.6 L, Monocytes % 3.4, Eosinophils % 0, Basophils % 0, Absolute Granulocytes 22.5 H, Segmented Neutrophils 88 H, Band Neutrophils 6 H, Absolute Lymphocytes 0.4 L, Lymphocytes 3 L, Monocytes 1 L, Absolute Monocytes 0.8 H, Absolute Eosinophils 0, Absolute Basophils 0, Metamyelocytes 2 H, Platelet Estimate VERIFIED BY SMEAR, Poikilocytosis 1+, Anisocytosis 1+ Microbiology 04/02 1610 BLOOD: Blood Culture - CAN Cancelled: CAN PER DR. CH 04/02 1610 BLOOD: Blood Culture - CAN Cancelled: CAN PER DR CH 04/02 1532 URINE ROUT: Urine Culture - RECD 04/02 1516 BLOOD: Blood Culture - RECD 04/02 1515 URINE ROUT: Urine Culture - CAN Cancelled: Cancelled via OE: DUPLICATE ENTRY 04/02 1507 BLOOD: Blood Culture - RECD Assessment/Plan Assessment: On admission, Vitals: Afebrile, HR 101, RR 18, BP 144/81, 95% RA -CBC: Leukocytosis 23.7, H/H 13.6/41.7, PLT 275, Bandemia 6% -BMP: CKD Stage IV Cr 3.8 at baseline, Lactic acid 2.2, otherwise unremarkable. -UA/Microbiology:+ve for LE/Bacteria/WBC/Nitrites Previously cultured Pseudomonas, Enterococcus, Enterobacter, Klebsiella -Ab CT: 1. Abnormal appearance to the gallbladder. Differential diagnosis of this noncontrast study would include inflammation or infection such as acute cholecystitis. Alternatively, it is difficult to exclude underlying malignancy. Right upper quadrant ultrasound may provide additional diagnostic information. 2. Diverting colostomy. No evidence of bowel obstruction. 3. Markedly limited evaluation of the pelvis secondary to artifact related to bilateral hip prostheses. -Last Echo: 2015, normal EF>60% -Interventions in ER: IVF NS Bolus x 2, Ceftazidime x 1, Vanco x 1 Problem list/Assessment/Hospital Course: #Sepsis of urological origin #UTI #Lactic acidosis, resolving #PMH of hypertension, BPH s/p TURP, stage IV CKD, nuerogenic bladder, chronic hyperkalemia, GI bleed S/P colostomy and ileostomy in 09/2015, bilateral hydronephrosis s/p left ureteral stent placement in 09/2015 - Admit to general medicine - Vitals per protocol, monitor I&O per protocol. - Neri care per protocol - Will continue Vanco + Ceftazidine in concern of pseudomonas/enterococcus hx. Patient failed outpatient treatment of amoxicillin by his urologist. - Continusou IV bolus + hydration per sepsis protocol - Contine home meds - Pending Urological consult for current symptoms and possible circumcision per daughter's request. - Pending ID consult for need of suppresive ABX if any. - Pending blood/urine cultures - Pain per pathway. DVT prophylaxis Pharm PPX + ALPS Regular Diet IV Access: Peripheral IV Full Code As Ranked By This Provider Problem List: 1. Atonic bladder 2. Weakness 3. Chronic renal insufficiency 4. UTI (urinary tract infection) with pyuria Core Measures/Misc (06/06) Acute Coronary Syndrome ACS Diagnosis: No Congestive Heart Failure Congestive Heart Failure Diagnosis No Cerebrovascular Accident CVA/TIA Diagnosis: No VTE (View Protocol) VTE Risk Factors Age>40 No Mechanical VTE Prophylaxis d/t N/A MechProphylax Ordered No VTE Pharm Prophylaxis d/t NA PharmProphylax ordered Sepsis (View protocol) Sepsis Present: Yes If YES complete Sepsis Event Note If YES complete Sepsis Event Note Hany Cavazos MD 04/02/18 0039: General Information and HPI MD Statement: I have seen and personally examined BENITEZ SALES SR and documented this H&P. The patient is a 82 year old M who presented with a patient stated chief complaint of []. Source of Information: patient, family, old records Exam Limitations: no limitations Allergies/Medications Allergies: Coded Allergies: Penicillins (RASH 01/16/18) Home Med list Acetaminophen 500 MG TABLET 2 TAB PO TID PRN PAIN (Reported) Amlodipine Besylate 5 MG TABLET 1 TAB PO DAILY HTN Aspirin (Ecotrin*) 81 MG TABLET.DR 1 TAB PO QAM HEART/BLOOD (Reported) Carbidopa/Levodopa (Carbidopa-Levodopa 25-100 Tab) 25 MG-100 MG TABLET 1 TAB PO 4XDAILY TREMORS (Reported) Ferrous Sulfate 325 MG (65 MG IRON) TABLET 1 TAB PO TID SUPPLEMENT (Reported) Metoprolol Tartrate 25 MG TABLET 0.5 TAB PO BID HEART/BP (Reported) Multivitamin-Min/Iron/FA/Vit K (Multi-Day Plus Minerals Tablet) 18 MG IRON-400 MCG-25 MCG TABLET 1 TAB PO DAILY SUPPLEMENT (Reported) Sevelamer Carbonate (Renvela) 800 MG TABLET 1 TAB PO TIDWM KIDNEYS (Reported) Sodium Bicarbonate 325 MG TABLET 1,300 MG PO TID kidney failure Zinc Sulfate 220 MG TABLET 1 TAB PO QAM SUPPLEMENT (Reported) Compliance With Home Meds: GOOD Past History Travel History Traveled to [place] past 21 day No Medical History Blood Transfusion Hx: No Neurological: dizziness Respiratory: obstructive sleep apnea Assessment/Plan Assessment: Laboratory Tests 04/02/18 1801: Lactic Acid 1.0 04/02/18 1532: Urine Color YEL, Urine Clarity CLEAR, Urine pH 7.0, Ur Specific [place] 1.015, Urine Protein 100 H, Urine Ketones NEG, Urine Nitrite NEG, Urine Bilirubin NEG, Urine Urobilinogen 0.2, Ur Leukocyte Esterase LARGE H, Ur Microscopic SEDIMENT EXAMINED, Urine RBC 1-3, Urine WBC 50-75 H, Ur Epithelial Cells RARE, Urine Bacteria MANY H, Urine Hemoglobin TRACE-LYSED H, Urine Glucose NEG 04/02/18 1501: Anion Gap 18 H, Estimated GFR 15 L, BUN/Creatinine Ratio 17.6, Glucose 113 H, Lactic Acid 2.2 H, Calcium 9.5, Total Bilirubin 0.8, AST 22, ALT 43, Alkaline Phosphatase 99, Troponin I 0.03, Total Protein 7.7, Albumin 4.4, Globulin 3.3, Albumin/Globulin Ratio 1.3, CBC w Diff MAN DIFF ORDERED, RBC 4.42 L, MCV 94.2 H, MCH 30.9, MCHC 32.8 L, RDW 16.0 H, MPV 8.4, Gran % 95.0 H, Lymphocytes % 1.6 L, Monocytes % 3.4, Eosinophils % 0, Basophils % 0, Absolute Granulocytes 22.5 H, Segmented Neutrophils 88 H, Band Neutrophils 6 H, Absolute Lymphocytes 0.4 L, Lymphocytes 3 L, Monocytes 1 L, Absolute Monocytes 0.8 H, Absolute Eosinophils 0, Absolute Basophils 0, Metamyelocytes 2 H, Platelet Estimate VERIFIED BY SMEAR, Poikilocytosis 1+, Anisocytosis 1+ Microbiology 04/02 1610 BLOOD: Blood Culture - CAN Cancelled: CAN PER DR. CH 04/02 1610 BLOOD: Blood Culture - CAN Cancelled: CAN PER DR CH 04/02 1532 URINE ROUT: Urine Culture - RECD 04/02 1516 BLOOD: Blood Culture - RECD 04/02 1515 URINE ROUT: Urine Culture - CAN Cancelled: Cancelled via OE: DUPLICATE ENTRY 04/02 1507 BLOOD: Blood Culture - RECD Core Measures/Misc (06/06) Sepsis (View protocol) If YES complete Sepsis Event Note If YES complete Sepsis Event Note Attending MD Review Statement Attending Statement Attending MD Statement: examined this patient, discuss w/resident/PA/FITNESS MANAGER, agreed w/resident/PA/FITNESS MANAGER, discussed with family, reviewed EMR data (avail) Attending Assessment/Plan: The patient is an 81 yo male with h/o HTN, Parkinson's Disease, BPH (S/P TURP), 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 His appetite was also noted to be poor. and he was unable to self cath himself due to weakness. He & family have been frustrated by frequent infections. He denied fever, chills, or flank pain. Last infection was 3.5 weeks ago and was treated with course of Cipro as outpatient. He grew pseudomonas and enterococcus from culture. Antibiotics completed 1.5 weeks ago. His daughter asked if uncircumcised state could be contributing as he states foreskin has made it more difficult to insert catheter. Physical Exam: VS: T 98.1, P 101, R 18, BP 144/81, PO 95% RA HEENT: eyes- PERRLA, EOMi yogi- moist mucosa w/o lesions Neck: no bruits/JVD Chest: sl decreased breath sounds, clear Cor: RRR nl S1, S2 2/o murm Abd: BS+, softly distended, non-tender, - masses; has ileostomy bag with significant findings Ext: no edema, pulses 2+ Neuro: alert & oriented x 3, fatigued, non-focal exam Labs/Tests- as above Impression/Plan: #UTI/Sepsis of Urologic Origin- technically meets sepsis criteria with tachycardia, leukocytosis with left shift, elevated lactate level (2.2). Has grown psudomonas and enterococcus on most recent culture. Plan: Admit to general medical service. Young culture- begin IV Abx (pseudomonas). Sepsis Event Note, Sepsis Order Set- IV fluids as per set. Urology consult (Dr. Barrett covering for Dr. Mercado). ID consult - Dr. Lopez. #Atonic Bladder- as above, patient doing self caths. Has had multiple infections. Plan: May consider alternative to self cath- (?suprapubic). #ROSE/on CKD- Creatinine increased to 3.8 from 3.4 in 02/04. Most likely secondary to atonic bladder and volume depletion. Patient taking Plan: Nephrology input. Agree with IV bolus/IV fluids as per sepsis protocol and follow Cr. Continue bicarbonate. #HTN- BP as above. Plan: Continue Amlodipine/Metoprolol and watch BP. #Parkinson's Disease- was on Carbidopa/Levodopa. Has urinary side effects. Plan: Will discuss with PCP. Holding at present. #Chronic Anemia- ? related to renal failure. Plan: Continue iron.
--- NOTE | 2018-04-02 17:15 | Sepsis Event Note ---
Sepsis Event Note Severe Sepsis Severe Sepsis Present: Yes Severe Sepsis Actions Taken: Blood Cultures x2, Lactic Acid x2, IV Broad Spectrum Abx, IV Fluids- NS or LR Septic Shock Septic Shock Present: No Event Note Event Note: Patient met severe sepsis criteria (Leukocytosis, tachycardia, source of infection, lactic acidosis) - Measures including broad specturm ABx/IVF per body weight/Blood CX/Lactic Acid F/u all met. - Continue care on GM per HPI Sepsis Focused Exam Sepsis Cardiac Exam: Regular Rate/Rhythm Sepsis Resp Exam: normal breath sounds Sepsis Cap Refill Exam: <2 Sec Sepsis Peripheral Pulse Exam: Normal Sepsis Peripheral Pulse Location: Dorsalis Pedis Sepsis Skin Exam (color): Normal for Ethnicity Skin Temp/Moisture Exam: Warm/Dry
[2018-04-02 18:36] VITALS: BP 158/100
[2018-04-02 21:27] VITALS: BP 138/74
--- NOTE | 2018-04-02 22:40 | Admission Certification ---
Admission Certification Certification Statement - As attending physician, I certify that at the time of - admission, based on clinical presentation, severity of - symptoms, need for further diagnostic testing and - therapeutic interventions, and risk of adverse outcomes - without in-hospital treatment, in my clinical assessment, - this patient requires an acute hospital stay for a minimum - of two nights or longer. I have also considered psychsocial - factors such as support system, advanced age, financial - issues, cognitive issues, and failed out-patient treatments, - past re-admission history, safety of patient, and lack of - compliance as applicable. Specific rationale supporting this admission is: The patient presents with UTI and sepsis of urologic origin. Has neurogenic bladder and difficulty cathing himself. Needs admission for full culture, IV antibiotics, IV fluids (sepsis protocol).
[2018-04-03 06:25] VITALS: BP 150/84
[2018-04-03 08:00] LABS: ABSOLUTE BASOPHIL COUNT 0 /CUMM (0.0-0.2); ABSOLUTE EOSINOPHIL COUNT 0.5 /CUMM (0.0-0.7); ABSOLUTE GRANULOCYTE CT 12.6 /CUMM (1.4-6.5); ABSOLUTE LYMPH COUNT 0.8 /CUMM (1.2-3.4); ABSOLUTE MONOCYTE COUNT 0.9 /CUMM (0.10-0.60); BASOPHIL % 0.1 % (0.0-2.0); EOSINOPHIL % 3.7 % (0-5); GRANULOCYTE % 84.6 % (42.2-75.2); MEAN CORPUSCULAR HGB 31.2 PG (27.0-31.0); MEAN CORPUSCULAR HGB CONC 32.9 G/DL (33.0-37.0); MEAN CORPUSCULAR VOLUME 94.8 FL (80.0-94.0); MEAN PLATELET VOLUME 9.1 FL (7.4-10.4); PLATELET COUNT 218 /CUMM (130-400); RBC DISTRIBUTION WIDTH 15.9 % (11.5-14.5); RED BLOOD CELL CT 3.49 /CUMM (4.70-6.10); WHITE BLOOD CELL COUNT 14.9 /CUMM (4.8-10.8)
--- NOTE | 2018-04-03 08:28 | PN- Housestaff ---
See Addendum Subjective Follow-up For: Sepsis of urological origin Subjective: Patient seen and examined bedside this morning. Patient states that he feels somewhat better than yesterday. Patient states that he does not have any urinary symptoms. Patient does state that he has some gas in his ileostomy bag. Patient states that his leg still feel numb. Patient denied fever/chills/night sweats/chest pain/abdominal pain/urinary symptoms/lower extremity edema. Review of Systems Constitutional: Reports: see HPI. Objective Last 24 Hrs of Vital Signs/I&O Vital Signs Date Time Temp Pulse Resp B/P B/P Pulse O2 O2 Flow FiO2 Mean Ox Delivery Rate 04/03 1451 98.2 68 16 158/82 93 Room Air Room Air 04/03 0913 66 150/84 04/03 0912 66 150/84 04/03 0625 98.2 66 20 150/84 92 04/02 2127 98.7 80 16 138/74 91 Room Air 04/02 1954 80 138/74 04/02 1836 98.1 103 18 158/100 94 Room Air 04/02 1732 98.3 102 16 184/95 94 Room Air Intake & Output 04/03 1600 04/03 0800 04/03 0000 Intake Total 720 600 Output Total 1200 2775 Balance -480 -2175 Intake, IV 250 Intake, Oral 720 350 Output, Stool 500 500 Output, Urine 700 2275 Patient 192 lb 185 lb Weight Weight Bed scale Bed scale Measurement Method Physical Exam General Appearance: Alert, Oriented X3, Cooperative, No Acute Distress Skin: No Rashes Skin Temp/Moisture Exam: Warm/Dry Cardiovascular: Regular Rate, Normal S1, Normal S2 Lungs: Clear to Auscultation, Normal Air Movement Abdomen: Soft, No Tenderness, ileostomy bag in place, distended with gas Neurological: Normal Speech Extremities: No Edema Current Medications: Current Medications Sig/Delicia Start time Last Medication Dose Route Stop Time Status Admin Acetaminophen 650 MG Q6P PRN 04/02 1645 AC PO Acetaminophen 1,000 MG Q6P PRN 04/02 1645 AC IV Amlodipine Besylate 5 MG DAILY 04/03 09 AC 04/03 PO 0913 Artificial Tears 2 GTT 4 TIMES/DAY 04/02 1724 AC 04/03 OPH 1453 Aspirin Buffered 81 MG QAM 04/03 09 AC 04/03 PO 0912 Ceftazidime 1,000 MG Q24 04/03 1730 CAN IV Ceftazidime 0 .STK-MED ONE 04/02 1720 DC .ROUTE Ceftazidime 1,000 MG ONCE ONE 04/02 1615 DC 07/ IV 04/02 1616 1728 Ferrous Sulfate 325 MG TID 04/02 2100 AC 04/03 PO 1454 Fluconazole 50 MG DAILY 04/03 1208 AC PO 04/09 0901 Heparin Sodium 5,000 UNIT Q8 04/02 2200 AC 04/03 (Porcine) SC 1455 Meropenem 1 GM Q12H 04/03 1600 AC IV Metoprolol Tartrate 12.5 MG BID 04/02 2100 AC 04/03 PO 0912 Multivitamins 1 TAB DAILY 04/03 0900 AC 04/03 PO 0911 Nystatin 1 SADIQ BID 04/03 1001 AC 04/03 TOP 1453 Oxycodone HCl 10 MG Q6P PRN 04/02 1645 AC PO Sevelamer Carbonate 800 MG WM 04/02 1730 AC 04/03 PO 1453 Sodium Bicarbonate 1,300 MG TID 04/02 2100 AC 04/03 PO 1454 Sodium Chloride 1,000 ML ONCE ONE 04/02 1615 DC 07/ IV 04/02 1714 1728 Sodium Chloride 1,000 ML BOLUS ONE 04/02 1615 DC 07 IV 04/02 1814 1811 Vancomycin HCl 1,000 MG ONCE ONE 04/02 1645 DC 04/02 Sodium Chloride 250 ML IV 04/02 1744 1902 Zinc Sulfate 220 MG DAILY 04/03 0900 AC 04/03 PO 0911 Last 24 Hrs of Lab/Arturo Results Last 24 Hrs of Labs/Mics: Laboratory Tests 04/03/18 0615: Anion Gap 12, Estimated GFR 18 L, BUN/Creatinine Ratio 17.3, CBC w Diff MAN DIFF ORDERED, RBC 3.49 L, MCV 94.8 H, MCH 31.2 H, MCHC 32.9 L, RDW 15.9 H, MPV 9.1, Gran % 84.6 H, Lymphocytes % 5.2 L, Monocytes % 6.4, Eosinophils % 3.7, Basophils % 0.1, Absolute Granulocytes 12.6 H, Absolute Lymphocytes 0.8 L , Absolute Monocytes 0.9 H, Absolute Eosinophils 0.5, Absolute Basophils 0, Platelet Estimate VERIFIED BY SMEAR, Poikilocytosis 1+, Anisocytosis 1+, Ovalocytes 1+, [place] Cells 1+, Random Vancomycin 8.8 04/02/18 1801: Lactic Acid 1.0 04/02/18 1532: Urine Color YEL, Urine Clarity CLEAR, Urine pH 7.0, Ur Specific [place] 1.015, Urine Protein 100 H, Urine Ketones NEG, Urine Nitrite NEG, Urine Bilirubin NEG, Urine Urobilinogen 0.2, Ur Leukocyte Esterase LARGE H, Ur Microscopic SEDIMENT EXAMINED, Urine RBC 1-3, Urine WBC 50-75 H, Ur Epithelial Cells RARE, Urine Bacteria MANY H, Urine Hemoglobin TRACE-LYSED H, Urine Glucose NEG Microbiology 04/02 1610 BLOOD: Blood Culture - CAN Cancelled: CAN PER DR. CH 04/02 161 BLOOD: Blood Culture - CAN Cancelled: CAN PER DR CH 04/02 1532 URINE ROUT: Urine Culture - RES ENTEROCOCCUS GRAM NEGATIVE RODS 04/02 1516 BLOOD: Blood Culture - RES 04/02 1515 URINE ROUT: Urine Culture - CAN Cancelled: Cancelled via OE: DUPLICATE ENTRY Assessment/Plan Assessment: Mr Marie is an 82yo m with a PMH of hypertension, BPH status post TURP, stage IV CKD, nuerogenic bladder, chronic hyperkalemia, GI bleed S/P colostomy and ileostomy in 09/2015, bilateral hydronephrosis s/p left ureteral stent placement in 09/2015 presented to ER w/ Ab pain and difficulty to urinate even with straight cath. Problem list/Assessment/Hospital Course: #Sepsis of urological origin #UTI #Lactic acidosis, resolving #PMH of hypertension, BPH s/p TURP, stage IV CKD, nuerogenic bladder, chronic hyperkalemia, GI bleed S/P colostomy and ileostomy in 09/2015, bilateral hydronephrosis s/p left ureteral stent placement in 09/2015 #Sepsis of Urological Origin; UTI -ID consult appreciated. We will discontinue ceftazidime and begin meropenem 1 g every 12 hours. We will also discontinue fluconazole. -Afebrile overnight, we will trend CBCs. White count from 23.7-14.9. -Appreciate urological input on this case. Will follow up on attending note. -We will follow up on blood/urine cultures - Pain per pathway. #Chronic med problems -Continue home medications DVT prophylaxis Pharm PPX + ALPS Regular Diet IV Access: Peripheral IV Full Code Problem List: 1. UTI (urinary tract infection) with pyuria Pain Ratin Pain Location: na Pain Goal: Remain pain free Pain Plan: pain pathway Tomorrow's Labs & Rationales: CBC to trend WBCs
[2018-04-03 09:00] LABS: HEMATOCRIT 33.1 % (42-52)
--- NOTE | 2018-04-03 09:34 | Cons- Urology ---
General Information and HPI Consulting Request Date of Consult: 04/03/18 Requested By: Hany Cavazos MD Reason for Consult: UTI/SEPSIS Source of Information: patient Exam Limitations: no limitations History of Present Illness: 82 year old with bph-selft caths admitted with severe celulitis. 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 Patient was recently admitted to [facility] in 01/2018 with similar complaint and was discharged per Dr. Tavarez's recommendation to straight cath rather than chronic neri to reduce recurrent infection. Patient was from his dauther's home and stated that daughter was doing the straight cath for him. Daughter at bedside confirmed and stated that patient had a recent UTI about 3.5 weeks ago, being treated with Cipro outpatient and ended the ABx course about 1.5 weeks ago. However, 04/01 patient had difficulty getting out of wheelchair due to BLEs weakness, which had been the symptom whenever he got UTI. The daughter called Dr. Thomas and was given Amoxicillin in outpatient, however they only took for one day before presented to the ER. The daughter also questioned regarding a possible cirumcision to faciliate straight cath if this procedure could be done in patient Patient was seeing Dr. Dougherty for his CKD stage IV, which had been stable and was compliant with home meds including Sevelamer and Bicarb tablets. Allergies/Medications Allergies: Coded Allergies: Penicillins (RASH 01/16/18) Home Med List: Acetaminophen 500 MG TABLET 2 TAB PO TID PRN PAIN (Reported) Amlodipine Besylate 5 MG TABLET 1 TAB PO DAILY HTN Aspirin (Ecotrin*) 81 MG TABLET. 1 TAB PO QAM HEART/BLOOD (Reported) Carbidopa/Levodopa (Carbidopa-Levodopa 25-100 Tab) 25 MG-100 MG TABLET 1 TAB PO 4XDAILY TREMORS (Reported) Ferrous Sulfate 325 MG (65 MG IRON) TABLET 1 TAB PO TID SUPPLEMENT (Reported) Lactobac 40/Bifido 3/S.thermop ([facility]vs Probiotic 100 Adriano Cell Cap) 100 BILLION CELL CAPSULE 1 CAP PO DAILY ABX USAGE Meropenem 1 GRAM VIAL 1 GM IV Q12H UTI PLEASE FINISH A 2 WEEK COURSE. 1G IV BID Metoprolol Tartrate 25 MG TABLET 0.5 TAB PO BID HEART/BP (Reported) Multivitamin-Min/Iron/FA/Vit K (Multi-Day Plus Minerals Tablet) 18 MG IRON-400 MCG-25 MCG TABLET 1 TAB PO DAILY SUPPLEMENT (Reported) Nystatin 100,000 UNIT/GRAM CREAM..G. 1 SADIQ TOP BID inguinal candidiasis APPLY THIN LAYER TO AFFECTED SKIN BID Sevelamer Carbonate (Renvela) 800 MG TABLET 1 TAB PO TIDWM KIDNEYS (Reported) Sodium Bicarbonate 325 MG TABLET 1,300 MG PO TID kidney failure Zinc Sulfate 220 MG TABLET 1 TAB PO QAM SUPPLEMENT (Reported) Current Medications: Current Medications Sig/Delicia Start time Last Medication Dose Route Stop Time Status Admin Acetaminophen 650 MG Q6P PRN 04/02 1645 AC PO Acetaminophen 1,000 MG Q6P PRN 04/02 1645 AC IV Amlodipine Besylate 5 MG DAILY 04/03 09 AC 04/03 PO 0913 Artificial Tears 2 GTT 4 TIMES/DAY 04/02 1724 AC 04/03 OPH 0912 Aspirin Buffered 81 MG QAM 04/03 09 AC 04/03 PO 0912 Ceftazidime 1,000 MG Q24 04/03 1730 AC IV Ceftazidime 0 .STK-MED ONE 04/02 1720 DC .ROUTE Ceftazidime 1,000 MG ONCE ONE 04/02 1615 DC 04/02 IV 04/02 1616 1728 Ferrous Sulfate 325 MG TID 04/02 2100 AC 04/03 PO 0911 Heparin Sodium 5,000 UNIT Q8 04/02 2200 AC 04/03 (Porcine) SC 0606 Metoprolol Tartrate 12.5 MG BID 04/02 2100 AC 04/03 PO 0912 Multivitamins 1 TAB DAILY 04/03 0900 AC 04/03 PO 0911 Oxycodone HCl 10 MG Q6P PRN 04/02 1645 AC PO Sevelamer Carbonate 800 MG WM 04/02 1730 AC 04/03 PO 0911 Sodium Bicarbonate 1,300 MG TID 04/02 2100 AC 04/03 PO 0910 Sodium Chloride 1,000 ML ONCE ONE 04/02 1615 DC 07/14 IV 04/02 1714 1728 Sodium Chloride 1,000 ML BOLUS ONE 04/02 1615 DC / IV 04/02 1814 1811 Vancomycin HCl 1,000 MG ONCE ONE 04/02 1645 DC 04/02 Sodium Chloride 250 ML IV 04/02 1744 1902 Zinc Sulfate 220 MG DAILY 04/03 0900 AC 04/03 PO 0911 Past History Medical History Blood Transfusion Hx: No Neurological: dizziness EENT: NONE Cardiovascular: AFIB, hypertension Respiratory: obstructive sleep apnea Gastrointestinal: upper GI bleed, BOWEL OBSTRUCTION COLOSTOMY PLACEMENT Hepatic: NONE Renal: benign prost hyperplasia, CHRONIC KIDNEY DISEASE HYDRONEPHROSIS Musculoskeletal: BILAT HIP FX'S (L HIP) Psychiatric: NONE Endocrine: NONE Blood Disorders: anemia, DVT Cancer(s): melanoma 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 Psychosocial History Where Do You Live? Home Who Do You Live With? self Services at Home: Home Health Aide, Nursing Primary Language: Spanish Smoking Status: Unknown If Ever Smoked Functional Ability ADLs Independent: dressing, eating, toileting, bathing. Ambulation: walker IADLs Needs Assist: shopping, housework, finances, food prep, telephone, transportation, medication admin. Employment History Retired? unknown Review of Systems Review of Systems Constitutional: Reports: weakness. EENTM: Denies: no symptoms. Cardiovascular: Denies: no symptoms. Respiratory: Denies: no symptoms. Genitourinary: Reports: see HPI, dysuria. Musculoskeletal: Denies: no symptoms. Skin: Reports: rash. Exam & Diagnostic Data Vital Signs and I&O Vital Signs Date Time Temp Pulse Resp B/P B/P Pulse O2 O2 Flow FiO2 Mean Ox Delivery Rate 04/03 0913 66 150/84 04/03 0912 66 150/84 04/03 0625 98.2 66 20 150/84 92 04/02 2127 98.7 80 16 138/74 91 Room Air 04/02 1954 80 138/74 04/02 1836 98.1 103 18 158/100 94 Room Air 04/02 1732 98.3 102 16 184/95 94 Room Air 04/02 1419 98.1 101 18 144/81 95 Room Air Intake & Output 04/03 0804/03 0000 04/02 1600 04/02 0800 04/02 0000 Intake Total 551 826 0245 Output Total 800 2775 900 Balance -560 -2175 600 Intake, IV 250 1500 Intake, Oral 240 350 Output, Stool 100 500 Output, Urine 700 2275 900 Patient 192 lb 185 lb Weight Weight Bed scale Bed scale Measurement Method Physical Exam General Appearance: well developed/nourished, no apparent distress Head: atraumatic Eyes: Bilateral: normal appearance. Respiratory: normal breath sounds Cardiovascular: regular rate/rhythm Gastrointestinal: normal bowel sounds, soft, colostomy Back: no vertebral tenderness Extremities: normal inspection Skin: rash Reproductive: Normal male genitalia, phimosis Last 24 Hours of Labs: Laboratory Tests 04/03 04/02 0615 1801 Chemistry Sodium (137 - 145 mmol/L) 140 Potassium (3.5 - 5.1 mmol/L) 4.7 Chloride (98 - 107 mmol/L) 107 Carbon Dioxide (22 - 30 mmol/L) 21 L Anion Gap (5 - 16) 12 BUN (9 - 20 mg/dL) 57 H Creatinine (0.7 - 1.2 mg/dL) 3.3 H Estimated GFR (>60 ml/min) 18 L BUN/Creatinine Ratio (7 - 25 %) 17.3 Lactic Acid (0.7 - 2.1 mmol/L) 1.0 Hematology CBC w Diff MAN DIFF ORDERED WBC (4.8 - 10.8 /CUMM) 14.9 H RBC (4.70 - 6.10 /CUMM) 3.49 L Hgb (14.0 - 18.0 G/DL) 10.9 L Hct (42 - 52 %) 33.1 L MCV (80.0 - 94.0 FL) 94.8 H MCH (27.0 - 31.0 PG) 31.2 H MCHC (33.0 - 37.0 G/DL) 32.9 L RDW (11.5 - 14.5 %) 15.9 H Plt Count (130 - 400 /CUMM) 218 MPV (7.4 - 10.4 FL) 9.1 Gran % (42.2 - 75.2 %) 84.6 H Lymphocytes % (20.5 - 51.1 %) 5.2 L Monocytes % (1.7 - 9.3 %) 6.4 Eosinophils % (0 - 5 %) 3.7 Basophils % (0.0 - 2.0 %) 0.1 Absolute Granulocytes (1.4 - 6.5 /CUMM) 12.6 H Absolute Lymphocytes (1.2 - 3.4 /CUMM) 0.8 L Absolute Monocytes (0.10 - 0.60 /CUMM) 0.9 H Absolute Eosinophils (0.0 - 0.7 /CUMM) 0.5 Absolute Basophils (0.0 - 0.2 /CUMM) 0 Platelet Estimate (ADEQUATE) VERIFIED BY SMEAR Poikilocytosis 1+ Anisocytosis 1+ Ovalocytes 1+ Marleny Cells 1+ Toxicology Random Vancomycin (ug/ml) Pending 04/02 1532 Urines Urine Color (YEL,AMB,STR) YEL Urine Clarity (CLEAR) CLEAR Urine pH (5.0 - 8.0) 7.0 Ur Specific [place] (1.001 - 1.035) 1.015 Urine Protein (NEG,<30 MG/DL) 100 H Urine Ketones (NEG) NEG Urine Nitrite (NEG) NEG Urine Bilirubin (NEG) NEG Urine Urobilinogen (0.1 - 1.0 EU/dl) 0.2 Ur Leukocyte Esterase (NEG) LARGE H Ur Microscopic SEDIMENT EXAMINED Urine RBC (0 - 5 /HPF) 1-3 Urine WBC (0 - 2 /HPF) 50-75 H Ur Epithelial Cells (NONE,FEW) RARE Urine Bacteria (NEG/NONE) MANY H Urine Hemoglobin (NEG) TRACE-LYSED H Urine Glucose (N MG/DL) NEG 04/02 1501 Chemistry Sodium (137 - 145 mmol/L) 139 Potassium (3.5 - 5.1 mmol/L) 4.9 Chloride (98 - 107 mmol/L) 98 Carbon Dioxide (22 - 30 mmol/L) 23 Anion Gap (5 - 16) 18 H BUN (9 - 20 mg/dL) 67 H Creatinine (0.7 - 1.2 mg/dL) 3.8 H Estimated GFR (>60 ml/min) 15 L BUN/Creatinine Ratio (7 - 25 %) 17.6 Glucose (65 - 99 mg/dL) 113 H Lactic Acid (0.7 - 2.1 mmol/L) 2.2 H Calcium (8.4 - 10.2 mg/dL) 9.5 Total Bilirubin (0.2 - 1.3 mg/dL) 0.8 AST (17 - 59 U/L) 22 ALT (21 - 72 U/L) 43 Alkaline Phosphatase (< 127 U/L) 99 Troponin I (<0.11 ng/ml) 0.03 Total Protein (6.3 - 8.2 g/dL) 7.7 Albumin (3.5 - 5.0 g/dL) 4.4 Globulin (1.9 - 4.2 gm/dL) 3.3 Albumin/Globulin Ratio (1.1 - 2.2 %) 1.3 Hematology CBC w Diff MAN DIFF ORDERED WBC (4.8 - 10.8 /CUMM) 23.7 H RBC (4.70 - 6.10 /CUMM) 4.42 L Hgb (14.0 - 18.0 G/DL) 13.6 L Hct (42 - 52 %) 41.7 L MCV (80.0 - 94.0 FL) 94.2 H MCH (27.0 - 31.0 PG) 30.9 MCHC (33.0 - 37.0 G/DL) 32.8 L RDW (11.5 - 14.5 %) 16.0 H Plt Count (130 - 400 /CUMM) 275 MPV (7.4 - 10.4 FL) 8.4 Gran % (42.2 - 75.2 %) 95.0 H Lymphocytes % (20.5 - 51.1 %) 1.6 L Monocytes % (1.7 - 9.3 %) 3.4 Eosinophils % (0 - 5 %) 0 Basophils % (0.0 - 2.0 %) 0 Absolute Granulocytes (1.4 - 6.5 /CUMM) 22.5 H Segmented Neutrophils (42.2 - 75.2 %) 88 H Band Neutrophils (0.0 - 5.0 %) 6 H Absolute Lymphocytes (1.2 - 3.4 /CUMM) 0.4 L Lymphocytes (20.5 - 51.1 %) 3 L Monocytes (1.7 - 9.3 %) 1 L Absolute Monocytes (0.10 - 0.60 /CUMM) 0.8 H Absolute Eosinophils (0.0 - 0.7 /CUMM) 0 Absolute Basophils (0.0 - 0.2 /CUMM) 0 Metamyelocytes (0.0 - 1.0 %) 2 H Platelet Estimate (ADEQUATE) VERIFIED BY SMEAR Poikilocytosis 1+ Anisocytosis 1+ Imaging Results: PATIENT: BENITEZ SALES SR PRESENT AGE: 82 PATIENT ACCOUNT NO: [id number] : 33 LOCATION: [facility] ORDERING PHYSICIAN: Sorin BROWN SERVICE DATE: 04/02/18 EXAM TYPE: CAT - CT ABD & PELVIS W/O IV CONTRAS EXAMINATION: CT ABDOMEN AND PELVIS WITHOUT CONTRAST CLINICAL INFORMATION: Abdominal pain COMPARISON: CT 08/03/2016 TECHNIQUE: Multidetector volumetric imaging was performed from the superior aspect of the liver through the pubic symphysis. Sagittal and coronal reformatted images were obtained on the technologist's workstation. DLP: 995 mGy-cm FINDINGS: LUNG BASES: There is linear atelectasis versus scarring at the left lung base. There is bibasilar atelectasis. LIVER, GALLBLADDER, AND BILIARY TREE: The liver is grossly unremarkable on this noncontrast study. There is no intrahepatic biliary dilatation. The gallbladder is heterogeneous in appearance. The gallbladder may be slightly distended with small amount of pericholecystic fluid. No layering gallstones are identified. The common bile duct does not appear distended. PANCREAS: There is relative fatty atrophy of the pancreas. SPLEEN: Unremarkable. ADRENAL GLANDS: Unremarkable. KIDNEYS AND URETERS: The kidneys are relatively atrophic in appearance. The right kidney is markedly small compared to the left. There are prominent extrarenal pelvis disease. No convincing acute hydronephrosis. There are several tiny hypodense exophytic lesions which are too small to characterize but statistically most likely represent cysts. BLADDER: Bladder is relatively distended. GASTROINTESTINAL TRACT: Diverting colostomy noted in the right lower abdomen. There are no dilated loops of small or large bowel. No intra-abdominal free air free fluid. LYMPH NODES: Normal. VASCULAR: Moderate calcification involving the abdominal aorta and branches. IVC filter in position. PELVIC VISCERA: Not well assessed secondary to streak artifact related to bilateral hip prostheses. OSSEOUS STRUCTURES: Extensive severe multilevel degenerative changes involving the visualized lower thoracic and lumbar spine. Diffuse osteopenia. IMPRESSION: Limited noncontrast study. 1. Abnormal appearance to the gallbladder. Differential diagnosis of this noncontrast study would include inflammation or infection such as acute cholecystitis. Alternatively, it is difficult to exclude underlying malignancy. Right upper quadrant ultrasound may provide additional diagnostic information. 2. Diverting colostomy. No evidence of bowel obstruction. 3. Markedly limited evaluation of the pelvis secondary to artifact related to bilateral hip prostheses. Assessment/Plan Assessment/Plan continue nystatin/abx-awaiting culture results: phimosis may need circumcision but NOT at time of acute cellulitis-once resolved will discuss with pt once again Copies To: Davon Barrett MD Consult Acknowledgment - Thank you for your consult request. 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
--- NOTE | 2018-04-03 12:47 | Cons- Infect Disease ---
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 On admission he was afebrile. Laboratory data reviewed a white blood cell count of 24,000, with 88 segs and 6 bands, BUN/ creatinine 67 and 3.8, lactic acid 2.2, with normal liver enzymes. Urinalysis 1 -3 RBC/50-[address] of the abdomen and pelvis revealed a slightly distended gallbladder with a small amount of pericholecystic fluid, atrophic kidneys, right more than left, and a relatively distended distended bladder, with no hydronephrosis. He was given 1 dose of Vancomycin and begun on Ceftazidime. This morning he was apparently also begun on Fluconazole. He has remained afebrile since admission and feels improved today. Allergies/Medications Allergies: Coded Allergies: Penicillins (RASH 01/16/18) Home Med List: Acetaminophen 500 MG TABLET 2 TAB PO TID PRN PAIN (Reported) Amlodipine Besylate 5 MG TABLET 1 TAB PO DAILY HTN Aspirin (Ecotrin*) 81 MG TABLET.DR 1 TAB PO QAM HEART/BLOOD (Reported) Carbidopa/Levodopa (Carbidopa-Levodopa 25-100 Tab) 25 MG-100 MG TABLET 1 TAB PO 4XDAILY TREMORS (Reported) Ferrous Sulfate 325 MG (65 MG IRON) TABLET 1 TAB PO TID SUPPLEMENT (Reported) Metoprolol Tartrate 25 MG TABLET 0.5 TAB PO BID HEART/BP (Reported) Multivitamin-Min/Iron/FA/Vit K (Multi-Day Plus Minerals Tablet) 18 MG IRON-400 MCG-25 MCG TABLET 1 TAB PO DAILY SUPPLEMENT (Reported) Sevelamer Carbonate (Renvela) 800 MG TABLET 1 TAB PO TIDWM KIDNEYS (Reported) Sodium Bicarbonate 325 MG TABLET 1,300 MG PO TID kidney failure Zinc Sulfate 220 MG TABLET 1 TAB PO QAM SUPPLEMENT (Reported) Past History Travel History Traveled to [place] past 21 day No Medical History Blood Transfusion Hx: No Neurological: dizziness EENT: NONE Cardiovascular: AFIB, hypertension Respiratory: obstructive sleep apnea Gastrointestinal: upper GI bleed, BOWEL OBSTRUCTION COLOSTOMY PLACEMENT Hepatic: NONE Renal: benign prost hyperplasia, CHRONIC KIDNEY DISEASE HYDRONEPHROSIS Musculoskeletal: BILAT HIP FX'S (L HIP) Psychiatric: NONE Endocrine: NONE Blood Disorders: anemia, DVT Cancer(s): melanoma 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 Psychosocial History Where Do You Live? Home Who Do You Live With? self Services at Home: Home Health Aide, Nursing Primary Language: Citizen Of [place] Smoking Status: Unknown If Ever Smoked Functional Ability ADLs Independent: dressing, eating, toileting, bathing. Ambulation: walker IADLs Needs Assist: shopping, housework, finances, food prep, telephone, transportation, medication admin. Review of Systems Review of Systems All Other Systems: Reviewed and Negative Exam & Diagnostic Data Last 24 Hrs of Vital Signs/I&O Vital Signs Date Time Temp Pulse Resp B/P B/P Pulse O2 O2 Flow FiO2 Mean Ox Delivery Rate 04/03 0913 66 150/84 04/03 0912 66 150/84 04/03 0625 98.2 66 20 150/84 92 04/02 2127 98.7 80 16 138/74 91 Room Air 04/02 1954 80 138/74 04/02 1836 98.1 103 18 158/100 94 Room Air 04/02 1732 98.3 102 16 184/95 94 Room Air 04/02 1419 98.1 101 18 144/81 95 Room Air Intake & Output 04/03 1600 04/03 0800 04/03 0000 Intake Total 240 600 Output Total 800 2775 Balance -560 -2175 Intake, IV 250 Intake, Oral 240 350 Output, Stool 100 500 Output, Urine 700 2275 Patient 192 lb 185 lb Weight Weight Bed scale Bed scale Measurement Method Physical Exam Other Physical Findings: He is awake and alert in no acute distress. He is afebrile. Skin reveals no rash. HEENT exam is negative. Neck is supple with no adenopathy. Lungs are clear. Heart regular rhythm with no murmur. Abdomen is soft, nontender with positive bowel sounds; ileostomy in place. Back bilateral CVA tenderness. Extremities no cyanosis, clubbing or edema; bilateral inguinal candidiasis. Neuro is without focality. Rossi catheter is in place. Last 24 Hours of Lab Results: Laboratory Tests 04/03 04/02 0615 1801 Chemistry Sodium (137 - 145 mmol/L) 140 Potassium (3.5 - 5.1 mmol/L) 4.7 Chloride (98 - 107 mmol/L) 107 Carbon Dioxide (22 - 30 mmol/L) 21 L Anion Gap (5 - 16) 12 BUN (9 - 20 mg/dL) 57 H Creatinine (0.7 - 1.2 mg/dL) 3.3 H Estimated GFR (>60 ml/min) 18 L BUN/Creatinine Ratio (7 - 25 %) 17.3 Lactic Acid (0.7 - 2.1 mmol/L) 1.0 Hematology CBC w Diff MAN DIFF ORDERED WBC (4.8 - 10.8 /CUMM) 14.9 H RBC (4.70 - 6.10 /CUMM) 3.49 L Hgb (14.0 - 18.0 G/DL) 10.9 L Hct (42 - 52 %) 33.1 L MCV (80.0 - 94.0 FL) 94.8 H MCH (27.0 - 31.0 PG) 31.2 H MCHC (33.0 - 37.0 G/DL) 32.9 L RDW (11.5 - 14.5 %) 15.9 H Plt Count (130 - 400 /CUMM) 218 MPV (7.4 - 10.4 FL) 9.1 Gran % (42.2 - 75.2 %) 84.6 H Lymphocytes % (20.5 - 51.1 %) 5.2 L Monocytes % (1.7 - 9.3 %) 6.4 Eosinophils % (0 - 5 %) 3.7 Basophils % (0.0 - 2.0 %) 0.1 Absolute Granulocytes (1.4 - 6.5 /CUMM) 12.6 H Absolute Lymphocytes (1.2 - 3.4 /CUMM) 0.8 L Absolute Monocytes (0.10 - 0.60 /CUMM) 0.9 H Absolute Eosinophils (0.0 - 0.7 /CUMM) 0.5 Absolute Basophils (0.0 - 0.2 /CUMM) 0 Platelet Estimate (ADEQUATE) VERIFIED BY SMEAR Poikilocytosis 1+ Anisocytosis 1+ Ovalocytes 1+ [place] Cells 1+ Toxicology Random Vancomycin (ug/ml) 8.8 04/02 1532 Urines Urine Color (YEL,AMB,STR) YEL Urine Clarity (CLEAR) CLEAR Urine pH (5.0 - 8.0) 7.0 Ur Specific [place] (1.001 - 1.035) 1.015 Urine Protein (NEG,<30 MG/DL) 100 H Urine Ketones (NEG) NEG Urine Nitrite (NEG) NEG Urine Bilirubin (NEG) NEG Urine Urobilinogen (0.1 - 1.0 EU/dl) 0.2 Ur Leukocyte Esterase (NEG) LARGE H Ur Microscopic SEDIMENT EXAMINED Urine RBC (0 - 5 /HPF) 1-3 Urine WBC (0 - 2 /HPF) 50-75 H Ur Epithelial Cells (NONE,FEW) RARE Urine Bacteria (NEG/NONE) MANY H Urine Hemoglobin (NEG) TRACE-LYSED H Urine Glucose (N MG/DL) NEG 04/02 1501 Chemistry Sodium (137 - 145 mmol/L) 139 Potassium (3.5 - 5.1 mmol/L) 4.9 Chloride (98 - 107 mmol/L) 98 Carbon Dioxide (22 - 30 mmol/L) 23 Anion Gap (5 - 16) 18 H BUN (9 - 20 mg/dL) 67 H Creatinine (0.7 - 1.2 mg/dL) 3.8 H Estimated GFR (>60 ml/min) 15 L BUN/Creatinine Ratio (7 - 25 %) 17.6 Glucose (65 - 99 mg/dL) 113 H Lactic Acid (0.7 - 2.1 mmol/L) 2.2 H Calcium (8.4 - 10.2 mg/dL) 9.5 Total Bilirubin (0.2 - 1.3 mg/dL) 0.8 AST (17 - 59 U/L) 22 ALT (21 - 72 U/L) 43 Alkaline Phosphatase (< 127 U/L) 99 Troponin I (<0.11 ng/ml) 0.03 Total Protein (6.3 - 8.2 g/dL) 7.7 Albumin (3.5 - 5.0 g/dL) 4.4 Globulin (1.9 - 4.2 gm/dL) 3.3 Albumin/Globulin Ratio (1.1 - 2.2 %) 1.3 Hematology CBC w Diff MAN DIFF ORDERED WBC (4.8 - 10.8 /CUMM) 23.7 H RBC (4.70 - 6.10 /CUMM) 4.42 L Hgb (14.0 - 18.0 G/DL) 13.6 L Hct (42 - 52 %) 41.7 L MCV (80.0 - 94.0 FL) 94.2 H MCH (27.0 - 31.0 PG) 30.9 MCHC (33.0 - 37.0 G/DL) 32.8 L RDW (11.5 - 14.5 %) 16.0 H Plt Count (130 - 400 /CUMM) 275 MPV (7.4 - 10.4 FL) 8.4 Gran % (42.2 - 75.2 %) 95.0 H Lymphocytes % (20.5 - 51.1 %) 1.6 L Monocytes % (1.7 - 9.3 %) 3.4 Eosinophils % (0 - 5 %) 0 Basophils % (0.0 - 2.0 %) 0 Absolute Granulocytes (1.4 - 6.5 /CUMM) 22.5 H Segmented Neutrophils (42.2 - 75.2 %) 88 H Band Neutrophils (0.0 - 5.0 %) 6 H Absolute Lymphocytes (1.2 - 3.4 /CUMM) 0.4 L Lymphocytes (20.5 - 51.1 %) 3 L Monocytes (1.7 - 9.3 %) 1 L Absolute Monocytes (0.10 - 0.60 /CUMM) 0.8 H Absolute Eosinophils (0.0 - 0.7 /CUMM) 0 Absolute Basophils (0.0 - 0.2 /CUMM) 0 Metamyelocytes (0.0 - 1.0 %) 2 H Platelet Estimate (ADEQUATE) VERIFIED BY SMEAR Poikilocytosis 1+ Anisocytosis 1+ Last 24 Hours of Arturo Results: Blood cultures 2 April 02 negative Urine culture April 02 greater than 100,000 colonies of Enterococcus and approximately 50,000 colonies of gram-negative rods Diagnostic Data Recent Imaging Findings: CT of the abdomen and pelvis revealed a slightly distended gallbladder with a small amount of pericholecystic fluid, atrophic kidneys, right more than left, and a relatively distended distended bladder, with no hydronephrosis. 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 The significance of the positive urine culture is unclear as he has had asymptomatic bacteriuria in the past and it appears that his only presenting complaint was the inability to be catheterized due to the inability to retract his foreskin. He did, however, have a significant leukocytosis on admission, some of which may have been secondary to hemoconcentration, and he does have bilateral flank tenderness; therefore may be obligated to treat him for a pyelonephritis. Of note his recent urine culture was positive for Pseudomonas resistant to Ciprofloxacin; therefore suspect he will require IV antibiotics for treatment. As straight catheterizations may continue to be complicated, suprapubic cystostomy, which has been considered in the past, may need to be reconsidered. Alternatively or additionally a circumcision, which has also been discussed, may be helpful. He does have inguinal candidiasis, but this should be able to be treated with topical therapy. The significance of the biliary findings on CT scan is unclear with no GI symptoms or right upper quadrant tenderness. Suggestion: 1. Await Urology input regarding suprapubic cystostomy and circumcision 2. Follow-up final urine culture 3. Discontinue Ceftazidime 4. Discontinue Fluconazole 5. Nystatin powder to the groin 6. Begin Meropenem 1 g IV every 12 hours Consult Acknowledgment - Thank you for your consult request.
[2018-04-03 14:51] VITALS: BP 158/82
[2018-04-03 21:33] VITALS: BP 160/100
[2018-04-04 06:21] VITALS: BP 168/98
--- NOTE | 2018-04-04 07:08 | PN- Housestaff ---
Rowdy Polanco 04/04/18 0707: Subjective Follow-up For: UTI Subjective: Patient seen and examined at bedside. Patient states that he feels somewhat better today. Patient states that he still feels weak. Patient states that his legs still feel heavy. Patient does not have any urinary complaints at this time. Patient denied fever/chills/night sweats/chest pain/abdominal pain/lower extremity edema. No acute events overnight Review of Systems Constitutional: Reports: see HPI. Objective Last 24 Hrs of Vital Signs/I&O Vital Signs Date Time Temp Pulse Resp B/P B/P Pulse O2 O2 Flow FiO2 Mean Ox Delivery Rate 04/04 1054 Room Air Room Air 04/04 0842 84 152/72 04/04 0842 84 152/72 04/04 0621 97.7 68 20 168/98 95 Room Air 04/03 2133 98.4 83 18 160/100 94 Room Air 04/03 1451 98.2 68 16 158/82 93 Room Air Room Air Intake & Output 04/04 1600 04/04 0800 04/04 0000 Intake Total 340 Output Total 1650 680 Balance -1310 -680 Intake, IV 20 Intake, Oral 320 Output, Stool 450 680 Output, Urine 1200 Physical Exam General Appearance: Alert, Oriented X3, Cooperative, No Acute Distress Skin: No Rashes Skin Temp/Moisture Exam: Warm/Dry Cardiovascular: Regular Rate, Normal S1, Normal S2 Lungs: Clear to Auscultation, Normal Air Movement Abdomen: Soft, No Tenderness, ileostomy in place, draining well Neurological: Sensation Intact Extremities: No Edema Reproductive (MALE) neri in place Current Medications: Current Medications Sig/Delicia Start time Last Medication Dose Route Stop Time Status Admin Acetaminophen 650 MG Q6P PRN 04/02 1645 AC PO Acetaminophen 1,000 MG Q6P PRN 04/02 1645 AC IV Amlodipine Besylate 5 MG DAILY 04/03 09 AC 04/04 PO 0842 Artificial Tears 2 GTT 4 TIMES/DAY 04/02 1724 AC 04/04 OPH 1230 Aspirin Buffered 81 MG QAM 04/03 0900 AC 04/04 PO 0842 Ceftazidime 1,000 MG Q24 04/03 1730 CAN IV Ferrous Sulfate 325 MG TID 04/02 2100 AC 04/04 PO 0842 Fluconazole 50 MG DAILY 04/03 1208 DC 04/03 PO 04/09 0901 1753 Heparin Sodium 5,000 UNIT Q8 04/02 2200 AC 04/04 (Porcine) SC 0414 Meropenem 1 GM Q12H 04/03 1600 AC 04/04 IV 0414 Metoprolol Tartrate 12.5 MG BID 04/02 2100 AC 04/04 PO 0842 Multivitamins 1 TAB DAILY 04/03 0900 AC 04/04 PO 0843 Nystatin 1 SADIQ BID 04/03 1001 AC 04/04 TOP 0844 Oxycodone HCl 10 MG Q6P PRN 04/02 1645 AC PO Sevelamer Carbonate 800 MG WM 04/02 1730 AC 04/04 PO 1229 Sodium Bicarbonate 1,300 MG TID 04/02 2100 AC 04/04 PO 0843 Zinc Sulfate 220 MG DAILY 04/03 0900 AC 04/04 PO 0843 Last 24 Hrs of Lab/Arturo Results Last 24 Hrs of Labs/Mics: Laboratory Tests 04/04/18 0550: CBC w Diff NO MAN DIFF REQ, RBC 3.60 L, MCV 94.9 H, MCH 30.8, MCHC 32.5 L, RDW 15.9 H, MPV 9.2, Gran % 69.6, Lymphocytes % 8.4 L, Monocytes % 11.0 H, Eosinophils % 10.7 H, Basophils % 0.3, Absolute Granulocytes 6.7 H, Absolute Lymphocytes 0.8 L, Absolute Monocytes 1.0 H, Absolute Eosinophils 1.0, Absolute Basophils 0 Microbiology 04/04 0951 URINE ROUT: Urine Culture - COLB Assessment/Plan Assessment: Mr Marie is an 82yo m with a PMH of hypertension, BPH status post TURP, stage IV CKD, nuerogenic bladder, chronic hyperkalemia, GI bleed S/P colostomy and ileostomy in 09/2015, bilateral hydronephrosis s/p left ureteral stent placement in 09/2015 presented to ER w/ Ab pain and difficulty to urinate even with straight cath. Problem list/Assessment/Hospital Course: #Sepsis of urological origin #UTI #Lactic acidosis, resolved #PMH of hypertension, BPH s/p TURP, stage IV CKD, nuerogenic bladder, chronic hyperkalemia, GI bleed S/P colostomy and ileostomy in 09/2015, bilateral hydronephrosis s/p left ureteral stent placement in 09/2015 #Sepsis of Urological Origin; UTI -ID consult appreciated. We will discontinue ceftazidime and begin meropenem 1 g every 12 hours. We will also discontinue fluconazole. Currently on day 2 of meropenem. -Afebrile overnight, White count from 23.7-14.9 to 9.6 today. Patient now without leukocytosis. -Appreciate urological input on this case. Will follow up on attending note. Patient will not have surgery during this admission, as he has a fungal skin infection which would delay healing. -Urine culture growing enterococcus and Pseudomonas. Blood culture positive for gram-positive cocci, questionable skin kaden contamination - Pain per pathway. #Chronic med problems -Continue home medications #Sacral decubiti care to assess today. We will follow-up on recommendations. #Fungal skin infection DVT prophylaxis Pharm PPX + ALPS Regular Diet IV Access: Peripheral IV Full Code Dispositionpatient has general deconditioning, is receiving PT treatment. Problem List: 1. UTI (urinary tract infection) with pyuria Pain Ratin Pain Location: na Pain Goal: Pain 4 or less Pain Plan: pain pathway Tomorrow's Labs & Rationales: tessa Reyna Aaron 04/04/18 1124: Attending MD Review Statement Attending Statement Attending MD Statement: examined this patient, discuss w/resident/PA/JAVA WEB SERVICES DEVELOPER, agreed w/resident/PA/JAVA WEB SERVICES DEVELOPER, discussed with family, reviewed EMR data (avail), discussed with nursing, discussed with case mgmt, reviewed images, amended to note Attending Assessment/Plan: Patient seen/examined bedside. No new complaints. Ilesotomy output present. Neri cathter is present. Urology and ID consulted. Labs with improving leukocytosis, afebrile. Urine culture growing GNR (suspect pseudomonas) and enterococcus (similar to prior culture). Continue Meropenem. f/u final culture. f/u ID. PT consult for general physical deconditioning. Would probably benefit from eventual suprapubic catheter placement and circumcision in future.
[2018-04-04 08:30] LABS: ABSOLUTE BASOPHIL COUNT 0 /CUMM (0.0-0.2); ABSOLUTE GRANULOCYTE CT 6.7 /CUMM (1.4-6.5); ABSOLUTE LYMPH COUNT 0.8 /CUMM (1.2-3.4); BASOPHIL % 0.3 % (0.0-2.0); EOSINOPHIL % 10.7 % (0-5); GRANULOCYTE % 69.6 % (42.2-75.2); HEMATOCRIT 34.2 % (42-52); MEAN CORPUSCULAR HGB 30.8 PG (27.0-31.0); MEAN CORPUSCULAR HGB CONC 32.5 G/DL (33.0-37.0); MEAN CORPUSCULAR VOLUME 94.9 FL (80.0-94.0); MEAN PLATELET VOLUME 9.2 FL (7.4-10.4); PLATELET COUNT 216 /CUMM (130-400); RBC DISTRIBUTION WIDTH 15.9 % (11.5-14.5); WHITE BLOOD CELL COUNT 9.6 /CUMM (4.8-10.8)
[2018-04-04 14:59] VITALS: BP 128/64
--- NOTE | 2018-04-04 15:33 | PN- Infect Dx ---
Subjective Subjective: Afebrile. He complains of weakness but no specific pain Objective Last 24 Hrs of Vital Signs/I&O Vital Signs Date Time Temp Pulse Resp B/P B/P Pulse O2 O2 Flow FiO2 Mean Ox Delivery Rate 04/04 1459 98.2 73 20 128/64 96 Room Air 04/04 1054 Room Air Room Air 04/04 0842 84 152/72 04/04 0842 84 152/72 04/04 0621 97.7 68 20 168/98 95 Room Air 04/03 2133 98.4 83 18 160/100 94 Room Air Intake & Output 04/04 1600 04/04 0800 04/04 0000 Intake Total 600 340 Output Total 700 1650 680 Balance -100 -1310 -680 Intake, IV 20 Intake, Oral 600 320 Output, Stool 300 450 680 Output, Urine 400 1200 Physical Exam Other Physical Findings: He is awake and alert, in no acute distress Lungs are clear Heart regular rhythm with no murmur Abdomen is soft, nontender with positive bowel sounds Back questionable bilateral CVA tenderness Extremities no cyanosis, clubbing or edema Rossi catheter remains in place Results Last 24 Hours of Lab Results: Laboratory Tests 04/04 0550 Hematology CBC w Diff NO MAN DIFF REQ WBC (4.8 - 10.8 /CUMM) 9.6 RBC (4.70 - 6.10 /CUMM) 3.60 L Hgb (14.0 - 18.0 G/DL) 11.1 L Hct (42 - 52 %) 34.2 L MCV (80.0 - 94.0 FL) 94.9 H MCH (27.0 - 31.0 PG) 30.8 MCHC (33.0 - 37.0 G/DL) 32.5 L RDW (11.5 - 14.5 %) 15.9 H Plt Count (130 - 400 /CUMM) 216 MPV (7.4 - 10.4 FL) 9.2 Gran % (42.2 - 75.2 %) 69.6 Lymphocytes % (20.5 - 51.1 %) 8.4 L Monocytes % (1.7 - 9.3 %) 11.0 H Eosinophils % (0 - 5 %) 10.7 H Basophils % (0.0 - 2.0 %) 0.3 Absolute Granulocytes (1.4 - 6.5 /CUMM) 6.7 H Absolute Lymphocytes (1.2 - 3.4 /CUMM) 0.8 L Absolute Monocytes (0.10 - 0.60 /CUMM) 1.0 H Absolute Eosinophils (0.0 - 0.7 /CUMM) 1.0 Absolute Basophils (0.0 - 0.2 /CUMM) 0 Last 24 Hours of Arturo Results: Urine culture April 02 greater than 100,000 colonies of Enterococcus sensitive to Ampicillin and approximately 50,000 colonies of Pseudomonas resistant to Ciprofloxacin Blood cultures April 02 1 bottle positive for gram-positive cocci in clusters Assessment/Plan ID Impression: Stable, with temperatures and white blood cell count now normal, on Meropenem, Day 2 of treatment for an Enterococcal and Pseudomonas UTI in the setting of a Rossi catheter, possibly representing colonization though, with his leukocytosis on admission and questionable bilateral CVA tenderness, it may be difficult to rule out pyelonephritis. I have discussed with Dr. Thomas, who will evaluate him and consider a circumcision, which has been discussed in the past, and which might allow him to be continued on a straight cath protocol rather than pursuing a suprapubic cystostomy. The positive blood culture for gram-positive cocci in clusters likely represents a contaminant and will await the final ID. Suggestion: 1. Await Urology evaluation regarding possible circumcision 2. Continue Meropenem pending above (may need to pursue a Pro-Line to complete a 2 week course of treatment but will discuss further)
[2018-04-04 20:20] VITALS: BP 148/70
[2018-04-05 06:30] VITALS: BP 150/80
--- NOTE | 2018-04-05 08:22 | PN- Housestaff ---
Rowdy Polanco 04/05/18 0822: Subjective Follow-up For: Sepsis of Urological Origin Subjective: Patient seen and examined at bedside. Patient's shaking, stating that he feels chilly. Patient states that this started earlier today. Pt states he needs to shave and would like to shower. Pt states his legs still feel heavy. Patient denies fever/night sweats/chest pain/abdominal pain/urinary symptoms/le edema Review of Systems Constitutional: Reports: see HPI, chills. Objective Last 24 Hrs of Vital Signs/I&O Vital Signs Date Time Temp Pulse Resp B/P B/P Pulse O2 O2 Flow FiO2 Mean Ox Delivery Rate 04/05 0902 62 150/80 04/05 0901 62 150/80 04/05 0630 98.6 62 20 150/80 92 Room Air 04/04 2204 99.0 95 Room Air 04/04 2020 84 148/70 04/04 2020 84 148/70 04/04 1459 98.2 73 20 128/64 96 Room Air Intake & Output 04/05 1600 04/05 0800 04/05 0000 Intake Total 270 740 Output Total 1100 400 Balance -830 340 Intake, IV 30 0 Intake, Oral 240 740 Output, Stool 200 400 Output, Urine 900 Physical Exam General Appearance: Alert, Oriented X3, Cooperative, No Acute Distress, chills, shaking Skin: stage 3 sacral decubiti, present prior to admission Cardiovascular: Regular Rate, Normal S1, Normal S2 Lungs: Clear to Auscultation, Normal Air Movement Abdomen: Soft, No Tenderness, ileostomy in place Neurological: Sensation Intact Extremities: No Edema Current Medications: Current Medications Sig/Delicia Start time Last Medication Dose Route Stop Time Status Admin Acetaminophen 650 MG Q6P PRN 04/02 1645 AC PO Acetaminophen 1,000 MG Q6P PRN 04/02 1645 AC IV Amlodipine Besylate 5 MG DAILY 04/03 09 AC 04/05 PO 0902 Artificial Tears 2 GTT 4 TIMES/DAY 04/02 1724 AC 04/05 OPH 0605 Aspirin Buffered 81 MG QAM 04/03 0900 AC 04/05 PO 0901 Ferrous Sulfate 325 MG TID 04/02 2100 AC 04/05 PO 0901 Heparin Sodium 0 .STK-MED ONE 04/05 1119 DC (Porcine) IV Heparin Sodium 5,000 UNIT Q8 04/02 2200 AC 04/05 (Porcine) SC 0605 Lidocaine 0 .STK-MED ONE 04/05 1111 DC .ROUTE Lidocaine/Epinephrine 0 .STK-MED ONE 04/05 1111 DC .ROUTE Meropenem 1 GM Q12H 04/03 1600 AC 04/05 IV 0423 Metoprolol Tartrate 12.5 MG BID 04/02 2100 AC 04/05 PO 0901 Multivitamins 1 TAB DAILY 04/03 0900 AC 04/05 PO 0902 Nystatin 1 SADIQ BID 04/03 1001 AC 04/05 TOP 0905 Oxycodone HCl 10 MG Q6P PRN 04/02 1645 AC PO Sevelamer Carbonate 800 MG WM 04/02 1730 AC 04/05 PO 0901 Sodium Bicarbonate 1,300 MG TID 04/02 2100 AC 04/05 PO 0902 Zinc Sulfate 220 MG DAILY 04/03 0900 AC 04/05 PO 0902 Last 24 Hrs of Lab/Arturo Results Last 24 Hrs of Labs/Mics: Laboratory Tests 04/05/18 1015: PT 11.7, INR 1.07 Microbiology 04/05 0824 URINE ROUT: Urine Culture - CAN Cancelled: Cancelled via OE: Per MD Decision Assessment/Plan Assessment: Mr Marie is an 82yo m with a PMH of hypertension, BPH status post TURP, stage IV CKD, nuerogenic bladder, chronic hyperkalemia, GI bleed S/P colostomy and ileostomy in 09/2015, bilateral hydronephrosis s/p left ureteral stent placement in 09/2015 presented to ER w/ Ab pain and difficulty to urinate even with straight cath. Problem list/Assessment/Hospital Course: #Sepsis of urological origin #UTI #Lactic acidosis, resolved #PMH of hypertension, BPH s/p TURP, stage IV CKD, nuerogenic bladder, chronic hyperkalemia, GI bleed S/P colostomy and ileostomy in 09/2015, bilateral hydronephrosis s/p left ureteral stent placement in 09/2015 #Sepsis of Urological Origin; UTI - enterococcus and pseudomonas - resolving -ID consult appreciated. meropenem 1 g every 12 hours. Currently on day 3 of meropenem. Will need to complete a two week course. -Will go for Proline today at 1130 for outpatient meropenem administration. Appreciate IR and ID input on this case. -Afebrile overnight, White count from 23.7-14.9 to 9.6 yesterday. Patientwithout leukocytosis. -Appreciate urological input on this case. Will follow up on attending note. Spoke with urologist on phone yesterday - Patient will not have surgery during this admission, as he has a fungal skin infection which would delay healing. -Urine culture growing enterococcus and Pseudomonas. Blood culture positive for gram-positive cocci, questionable skin kaden contamination - Pain per pathway. #Chronic med problems -Continue home medications #Sacral decubiti - stage 3 - prior to admission care dropped note, nursing misc order placed to address. #Fungal skin infection DVT prophylaxis Pharm PPX + ALPS Regular Diet IV Access: Peripheral IV Full Code Dispositionpatient has general deconditioning, is receiving PT treatment. Will likely go for STR today. Problem List: 1. UTI (urinary tract infection) with pyuria Pain Ratin Pain Location: na Pain Goal: Pain 4 or less Pain Plan: pathway Tomorrow's Labs & Rationales: Reyna Israel 04/05/18 1126: Attending MD Review Statement Attending Statement Attending MD Statement: examined this patient, discuss w/resident/PA/SENIOR DESIGNER/ART DIRECTOR, agreed w/resident/PA/SENIOR DESIGNER/ART DIRECTOR, discussed with family, reviewed EMR data (avail), discussed with nursing, discussed with case mgmt, reviewed images, amended to note Attending Assessment/Plan: Patient seen/examined bedside. No new complaints. Overall clinical improvement, weakness +. Urine culture growing GNR (suspect pseudomonas) and enterococcus (similar to prior culture). Continue Meropenem and complete duration of abx as per ID. Plan is to obtain pro-line for iv abx. PT consult for general physical deconditioning recommend rehab placement. Would probably benefit from eventual suprapubic catheter placement and circumcision in future. Urology follow up. Anticipate dc planning soon.
--- NOTE | 2018-04-05 08:47 | Discharge Summary ---
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 Patient was recently admitted to [facility] in 01/2018 with similar complaint and was discharged per Dr. Tavarez's recommendation to straight cath rather than chronic neri to reduce recurrent infection. Patient was from his dauther's home and stated that daughter was doing the straight cath for him. Daughter at bedside confirmed and stated that patient had a recent UTI about 3.5 weeks ago, being treated with Cipro outpatient and ended the ABx course about 1.5 weeks ago. However, 04/01 patient had difficulty getting out of wheelchair due to BLEs weakness, which had been the symptom whenever he got UTI. The daughter called Dr. Thomas and was given Amoxicillin in outpatient, however they only took for one day before presented to the ER. On admission, Vitals: Afebrile, HR 101, RR 18, BP 144/81, 95% RA -CBC: Leukocytosis 23.7, H/H 13.6/41.7, PLT 275, Bandemia 6% -BMP: CKD Stage IV Cr 3.8 at baseline, Lactic acid 2.2, otherwise unremarkable. -UA/Microbiology:+ve for LE/Bacteria/WBC/Nitrites Previously cultured Pseudomonas, Enterococcus, Enterobacter, Klebsiella -Ab CT: 1. Abnormal appearance to the gallbladder. Differential diagnosis of this noncontrast study would include inflammation or infection such as acute cholecystitis. Alternatively, it is difficult to exclude underlying malignancy. Right upper quadrant ultrasound may provide additional diagnostic information. 2. Diverting colostomy. No evidence of bowel obstruction. 3. Markedly limited evaluation of the pelvis secondary to artifact related to bilateral hip prostheses. -Last Echo: 2015, normal EF>60% -Interventions in ER: IVF NS Bolus x 2, Ceftazidime x 1, Vanco x 1 Problem List #Sepsis of urological origin, resolved #UTI, resolving on Meropenem #Atonic bladder, on straight cath PRN protocol #Stage 3 decubitus ulcer #Topical fungal infection at groin #Lactic acidosis, resolving #PMH of hypertension, BPH s/p TURP, stage IV CKD, nuerogenic bladder, chronic hyperkalemia, GI bleed S/P colostomy and ileostomy in 09/2015, bilateral hydronephrosis s/p left ureteral stent placement in 09/2015 On admission, patient was started on ceftazidime and vancomycin to cover his previous culture results including Pseudomonas, Enterococcus, Enterobacter, Klebsiella. Urology consult was on board and recommended no circumcision despite daughter's request as it won't reduce any recurrent UTI and straight cath remained the preferred method. ID consult recommended to swithc to meropenem for a total of 14 days after patient was cultured positive for pseudomonas and enterococcus. A proline was obtained. Physical therapy recommended STR for further PT treat of lower exteremity weakness. Patient was advised to continue Abx for a total of 14-day course. All his home meds was continued during hospital stay. Topical anti-fungal was given for groin fungal infection. Wound care on board also recommended for routine care of patient's decubitus ulcer stage 3. See W10 for details. DVT prophylaxis Pharm PPX + ALPS Regular Diet IV Access: Peripheral IV Full Code Allergies: Coded Allergies: Penicillins (RASH 01/16/18) Pertinent Lab Results: SERVICE DATE: 04/02/18 EXAM TYPE: CAT - CT ABD & PELVIS W/O IV CONTRAS IMPRESSION: Limited noncontrast study. 1. Abnormal appearance to the gallbladder. Differential diagnosis of this noncontrast study would include inflammation or infection such as acute cholecystitis. Alternatively, it is difficult to exclude underlying malignancy. Right upper quadrant ultrasound may provide additional diagnostic information. 2. Diverting colostomy. No evidence of bowel obstruction. 3. Markedly limited evaluation of the pelvis secondary to artifact related to bilateral hip prostheses. Disposition Summary Disposition Principal Diagnosis: #Sepsis of urological origin, resolved #UTI, resolving on Meropenem #Atonic bladder, on straight cath PRN protocol #Stage 3 decubitus ulcer #Topical fungal infection at groin #Lactic acidosis, resolving #PMH of hypertension, BPH s/p TURP, stage IV CKD, nuerogenic bladder, chronic hyperkalemia, GI bleed S/P colostomy and ileostomy in 09/2015, bilateral hydronephrosis s/p left ureteral stent placement in 09/2015 Additional Diagnosis: as above Discharge Disposition: SNF Discharge Instructions General Discharge Information Code Status: Full Code Patient's Diet: as tolerated Patient's Activity: as tolerated Follow-Up Instructions/Appts: - Please follow up with your primary care physician within 1-2 weeks of discharge. Inform your primary care physician of this admission to [facility]. - Continue your current medications per discharge instructions. - Please watch for these problems: Fever, Chills, Nausea, Vomiting, Shortness of Breath, Productive Cough, Chest Pain/Discomfort, Abdominal Pain, Active Bleeding or Bloody urine/stool. Medications at Discharge Discharge Medications: Stop taking the following medications: Carbidopa/Levodopa (Carbidopa-Levodopa 25-100 Tab) 25 MG-100 MG TABLET ORAL 4XDAILY Continue taking these medications: Sevelamer Carbonate (Renvela) 800 MG TABLET 1 Tablet ORAL TIDWM Qty = 270 Comments: Last Taken: 04/05/18 Time: 1400PM Aspirin (Ecotrin*) 81 MG TABLET.DR 1 Tablet ORAL Every Morning Comments: Last Taken: 04/05/18 Time: 0900AM Multivitamin-Min/Iron/FA/Vit K (Multi-Day Plus Minerals Tablet) 18 MG IRON-400 MCG-25 MCG TABLET 1 Tablet ORAL DAILY Comments: Last Taken: 04/05/18 Time: 0900AM Ferrous Sulfate (Ferrous Sulfate) 325 MG (65 MG IRON) TABLET 1 Tablet ORAL THREE TIMES DAILY Comments: Last Taken: 04/05/18 Time: 0900AM Zinc Sulfate (Zinc Sulfate) 220 MG TABLET 1 Tablet ORAL Every Morning Comments: Last Taken: 04/05/18 Time: 0900AM Sodium Bicarbonate (Sodium Bicarbonate) 325 MG TABLET 1,300 Milligram ORAL THREE TIMES DAILY Qty = 60 Comments: Last Taken: 04/05/18 Time: 1400PM Amlodipine Besylate (Amlodipine Besylate) 5 MG TABLET 1 Tablet ORAL DAILY Qty = 30 Comments: Last Taken: 04/05/18 Time: 0900 AM Metoprolol Tartrate (Metoprolol Tartrate) 25 MG TABLET 0.5 Tablet ORAL TWICE DAILY Comments: Last Taken: 04/05/18 Time: 0900AM Acetaminophen (Acetaminophen) 500 MG TABLET 2 Tablet ORAL THREE TIMES DAILY as needed for PAIN Comments: NOT GIVEN IN HOSPITAL Start taking the following new medications: Nystatin (Nystatin) 100,000 UNIT/GRAM CREAM..G. 1 Application On the skin TWICE DAILY Qty = 1 No Refills Instructions: APPLY THIN LAYER TO AFFECTED SKIN BID Comments: Last Taken: 04/05/18 Time: 0900AM Meropenem (Meropenem) 1 GRAM VIAL 1 Gram IV Q12H Qty = 23 No Refills Instructions: PLEASE FINISH A 2 WEEK COURSE. 1G IV BID Comments: Last Taken: 04/05/18 Time: 0400AM Lactobac 40/Bifido 3/S.thermop ([employer]vs Probiotic 100 Adriano Cell Cap) 100 BILLION CELL CAPSULE 1 Capsule ORAL DAILY Qty = 30 No Refills Comments: NOT GIVEN IN HOSPITAL Copies To: Brennen VILLA,Sorin Rasmussen Attending MD Review Statement Documenting Attending: Galen VILLA,Reyna Other Findings: Patient on iv abx meropenem for total of 2 weeks. Patient seen by urology and recommend self catheerization. No plan for circumsicion and removal of neri cather at discharge. Patient is being discharged to rehab facility. Follow up with PCP in 1 week of discharge
[2018-04-05 10:50] LABS: PT 11.7 SEC (9.4-12.5)
[2018-04-05 11:33] VITALS: BP 112/68
[2018-04-05] MEDS ORDERED: NYSTATIN15 G1 TOP ×2 (11:36→16:46)
[2018-04-05] MEDS ORDERED: CVS PROBIOTIC1 EAC2 PO (11:36)
[2018-04-05] MEDS ORDERED: MEROPENEM1 G1 IV (11:40)
--- NOTE | 2018-04-05 11:43 | Patient Discharge Instructions ---
Discharge Instructions General Discharge Information You were seen/treated for: UTI, SACRAL DECUBITI You had these procedures: IR GUIDED PROLINE PLACEMENT Watch for these problems: FEVERS/CHILLS Special Instructions: - Please follow up with your primary care physician within 1-2 weeks of discharge. Inform your primary care physician of this admission to [facility]. - Continue your current medications per discharge instructions. - Please watch for these problems: Fever, Chills, Nausea, Vomiting, Shortness of Breath, Productive Cough, Chest Pain/Discomfort, Abdominal Pain, Active Bleeding or Bloody urine/stool. Diet Continue normal diet: Yes Activity Full Activity/No Limits: Yes Acute Coronary Syndrome Inclusion Criteria At DC or during hospital stay patient has or had the following: ACS DIAGNOSIS No Discharge Core Measures Meds if any: Prescribed or Continued at Discharge Meds if any: NOT Prescribed or Continued at Discharge Congestive Heart Failure Inclusion Criteria At DC or during hospital stay patient has or had the following: CHF DIAGNOSIS No Discharge Core Measures Meds if any: Prescribed or Continued at Discharge Meds if any: NOT Prescribed or Continued at Discharge Cerebrovascular accident Inclusion Criteria At DC or during hospital stay patient has or had the following: CVA/TIA Diagnosis No Discharge Core Measures Meds if any: Prescribed or Continued at Discharge Meds if any: NOT Prescribed or Continued at Discharge Venous thromboembolism Inclusion Criteria VTE Diagnosis No VTE Type NONE VTE Confirmed by (Test) NONE Discharge Core Measures - Per Current guidelines, there needs to be overlap - treatment for the first 5 days of Warfarin therapy. - If discharged on Warfarin prior to 5 days of - overlap therapy, the patient will need to be - assessed for post discharge needs including - *Post discharge parental anticoagulation - *Warfarin and/or parental anticoagulation education - *Follow up date to check INR post discharge At least 5 days overlap therapy as Inpatient No Meds if any: Prescribed or Continued at Discharge Note: Overlap Therapy is Warfarin and Anticoagulant Meds if any: NOT Prescribed or Continued at Discharge
--- NOTE | 2018-04-05 12:27 | Cons- Urology ---
General Information and HPI Consulting Request Date of Consult: 04/05/18 Requested By: Galen VILLA,Reyna Reason for Consult: Recurrent UTI, ? need for circumcision Source of Information: family, old records Exam Limitations: no limitations History of Present Illness: This patient is known to me. He has and atrophic R kidney, L vesico-ureteral reflux and an atonic bladder. He has had a TURP in the past. He is unable to empty his bladder spontaneously. When his bladder is left filled his renal fxn deteriorates beyond his baseline CKD. He was initially managed with an indwelling neri but had multiple episodes of urosepsis. He was then placed on intermittent cath in an effort to lessen the chance for UTI's. He has continued to have UTI's which according to the daughter are symptomatic. Recent urine culture was positive for enterococcus and pseudomonas. On admission he had a leukocytosis which has resolved rapidly. He has been on meropenum for a couple of days. He is uncircumcized and the issue has been raise if circumcision or suprapubic tube insertion was decrease his risk of UTI Allergies/Medications Allergies: Coded Allergies: Penicillins (RASH 01/16/18) Home Med List: Acetaminophen 500 MG TABLET 2 TAB PO TID PRN PAIN (Reported) Amlodipine Besylate 5 MG TABLET 1 TAB PO DAILY HTN Aspirin (Ecotrin*) 81 MG TABLET.DR 1 TAB PO QAM HEART/BLOOD (Reported) Carbidopa/Levodopa (Carbidopa-Levodopa 25-100 Tab) 25 MG-100 MG TABLET 1 TAB PO 4XDAILY TREMORS (Reported) Ferrous Sulfate 325 MG (65 MG IRON) TABLET 1 TAB PO TID SUPPLEMENT (Reported) Lactobac 40/Bifido 3/S.thermop (Cvs Probiotic 100 Adriano Cell Cap) 100 BILLION CELL CAPSULE 1 CAP PO DAILY ABX USAGE Meropenem 1 GRAM VIAL 1 GM IV Q12H UTI PLEASE FINISH A 2 WEEK COURSE. 1G IV BID Metoprolol Tartrate 25 MG TABLET 0.5 TAB PO BID HEART/BP (Reported) Multivitamin-Min/Iron/FA/Vit K (Multi-Day Plus Minerals Tablet) 18 MG IRON-400 MCG-25 MCG TABLET 1 TAB PO DAILY SUPPLEMENT (Reported) Nystatin 100,000 UNIT/GRAM CREAM..G. 1 SADIQ TOP BID inguinal candidiasis APPLY THIN LAYER TO AFFECTED SKIN BID Sevelamer Carbonate (Renvela) 800 MG TABLET 1 TAB PO TIDWM KIDNEYS (Reported) Sodium Bicarbonate 325 MG TABLET 1,300 MG PO TID kidney failure Zinc Sulfate 220 MG TABLET 1 TAB PO QAM SUPPLEMENT (Reported) Past History Medical History Blood Transfusion Hx: No Neurological: dizziness EENT: NONE Cardiovascular: AFIB, hypertension Respiratory: obstructive sleep apnea Gastrointestinal: upper GI bleed, BOWEL OBSTRUCTION COLOSTOMY PLACEMENT Hepatic: NONE Renal: benign prost hyperplasia, CHRONIC KIDNEY DISEASE HYDRONEPHROSIS Musculoskeletal: BILAT HIP FX'S (L HIP) Psychiatric: NONE Endocrine: NONE Blood Disorders: anemia, DVT Cancer(s): melanoma MEDICAL TRANSCRIPTION EDITOR/Reproductive: NONE Surgical History Pertinent Surgical History: colon resection (subtotal 09/2015 with ileostomy), hernia repair-umbilical, prostatectomy, HIP (L PARTIAL, R FULL) (left hip) Family History Relations & Conditions If Any: MOTHER (heart disease skin cancer). Psychosocial History Where Do You Live? Home Who Do You Live With? self Services at Home: Home Health Aide, Nursing Primary Language: Hungarian Smoking Status: Unknown If Ever Smoked Functional Ability ADLs Independent: dressing, eating, toileting, bathing. Ambulation: walker IADLs Needs Assist: shopping, housework, finances, food prep, telephone, transportation, medication admin. Exam & Diagnostic Data Vital Signs and I&O Vital Signs Date Time Temp Pulse Resp B/P B/P Pulse O2 O2 Flow FiO2 Mean Ox Delivery Rate 04/05 1133 98.3 61 18 112/68 98 Room Air 04/05 0902 62 150/80 04/05 0901 62 150/80 04/05 0630 98.6 62 20 150/80 92 Room Air 04/04 2204 99.0 95 Room Air 04/04 2020 84 148/70 04/04 2020 84 148/70 04/04 1459 98.2 73 20 128/64 96 Room Air Intake & Output 04/05 1600 04/05 0800 04/05 0000 04/04 1600 04/04 0800 04/04 0000 Intake Total 395 491 1095 340 Output Total 1100 532 649 4379 680 Balance -830 40 200 -1310 -680 Intake, IV 30 0 20 Intake, Oral 097 565 1496 320 Output, Stool 200 200 500 450 680 Output, Urine 015 129 1201 No distress Back: no CVA tenderness Abd: soft, colostomy present Genitalia: Uncircumcised. Foreskin is easily retractable. Some ventral erosion of the urethra Laboratory Tests 04/05 1015 Coagulation PT (9.4 - 12.5 SEC) 11.7 INR (0.90 - 1.17) 1.07 Assessment/Plan Assessment/Plan Imp: 1. recurrent UTI's 2. Atonic bladder requiring drainage 3. Atrophic R kidney 4. CKD Plan: 1. Since foreskin is easily retractable and glans can be prepped with antibacterial solution circucision is not likely to decrease risk of UTI 2. Intermittent cath should be preferrable to suprapubic tube in terms of risk of infection 3. Would continue with sterile (not clean) intermittent cath as preferred method of bladder drainage. Technique reviewed with daughter today Consult Acknowledgment - Thank you for your consult request.
[2018-04-05 13:30] VITALS: BP 142/88
--- NOTE | 2018-04-05 13:47 | ULTRASOUND REPORT ---
EXAMINATION: RIGHT-SIDED TUNNELED PROLINE CATHETER INTERVENTIONAL RADIOLOGIST: Matthew Deng M.D. CLINICAL INDICATION: Needs long-term antibiotics ACCESS: Right internal jugular vein. GUIDANCE: Ultrasound and fluoroscopy: 21 seconds CONSCIOUS SEDATION: Conscious sedation was not utilized. A registered nurse monitored the patient and the patient's vital signs throughout the procedure. COMPLICATIONS: None CONTRAST: None INFORMED CONSENT: Informed consent was obtained from the patient prior to the procedure. During this process, the procedure and potential alternatives were explained, along with the intended outcome and benefits. The risks of the procedure including the possibility of an unsuccessful procedure, as well as the risk of not doing the procedure were discussed. The patient was given the opportunity to ask questions regarding the procedure and appeared competent to make decisions. The patient was too weak to sign, so the consent was witnessed by our nurse. The consent form documenting this discussion was placed in the medical record. A time out procedure was performed. DESCRIPTION: The right neck and chest wall were prepped and draped. All elements of maximal sterile barrier technique followed including use of cap, mask, sterile gown, sterile gloves, a sterile full body drape and hand hygiene. Also followed skin preparation with 2% chlorhexidine for cutaneous antisepsis, and sterile ultrasound preparation with sterile gel and probe cover when applicable. Ultrasound guidance for vascular access was utilized with ultrasound evaluation of the potential access site and documentation that the right internal jugular vein was patent. Under real-time ultrasound, I visualized the vascular needle entry and recorded and reported US images from this in our PACS system. Under fluoroscopic guidance, a 0.018 guidewire was advanced into the right atrium. Fluoroscopic landmarks were utilized to calculate a tunnel length. A tunnel was then created along the right chest wall to the jugular puncture site. A 6-Faroese Proline catheter was then pulled through the tunnel. The 0.018 wire was replaced with a 0.035 wire with its tip in the IVC. After serial dilatation a 7-Faroese peel-away sheath was then placed into the right jugular vein. During a breath-hold, the Proline was passed through the peel-away sheath and positioned with its tip in the mid-right atrium. The peel-away sheath was removed and the wings of the proline catheter were secured to the skin with the provided fixation device. The jugular entry site was closed with Dermabond. The lumens of the Proline catheter were flushed with normal saline and then hep-locked. A sterile dressing was applied. IMPRESSION: Successful placement of tunneled right-sided jugular Proline catheter.
[2018-04-05 16:55] VITALS: BP 142/88
--- NOTE | 2018-04-05 17:50 | PN- Infect Dx ---
Subjective Subjective: Afebrile. He continues to complains of weakness. Objective Last 24 Hrs of Vital Signs/I&O Vital Signs Date Time Temp Pulse Resp B/P B/P Pulse O2 O2 Flow FiO2 Mean Ox Delivery Rate 04/05 1655 98.1 95 18 142/88 04/05 1330 98.1 95 18 142/88 94 Room Air 04/05 1243 Room Air Room Air 04/05 1133 98.3 61 18 112/68 98 Room Air 04/05 0902 62 150/80 04/05 0901 62 150/80 04/05 0800 Room Air 04/05 0630 98.6 62 20 150/80 92 Room Air 04/04 2204 99.0 95 Room Air 04/04 2020 84 148/70 04/04 2020 84 148/70 Intake & Output 04/05 1600 04/05 0800 04/05 0000 Intake Total 630 740 Output Total 750 1400 400 Balance -750 -770 340 Intake, IV 30 0 Intake, Oral 600 740 Number 0 Bowel Movements Output, Stool 500 400 Output, Urine 750 900 Patient 192 lb Weight Physical Exam Other Physical Findings: He appears comfortable in no acute distress Chest Pro-Line in the right upper chest in place Lungs are clear Heart regular rhythm with no murmur Back bilateral CVA tenderness Rossi catheter remains in place Results Last 24 Hours of Lab Results: Laboratory Tests 04/05 1015 Coagulation PT (9.4 - 12.5 SEC) 11.7 INR (0.90 - 1.17) 1.07 Last 24 Hours of Arturo Results: Blood cultures April 02 1 bottle positive for gram-positive cocci Assessment/Plan ID Impression: Stable, with temperatures and white blood cell count normal, on Meropenem, Day 3 of treatment for an Enterococcal and Pseudomonas UTI in the setting of a Rossi catheter, with bilateral CVA tenderness and a leukocytosis on admission suggestive of pyelonephritis. Urology evaluation noted and appreciated, with no plans for circumcision. The positive blood culture for gram-positive cocci in clusters likely represents a contaminant and will follow up the final ID. Suggestion: 1. Remove Rossi catheter 2. Resume straight catheterization protocol, in a sterile fashion as per Urology 3. Follow-up final blood culture 4. Continue Meropenem to complete a 2 week course of treatment (until April 16)
== END 2018-04-05 18:22 | DRG 871 ==
LOC: ERH 14:14 → ERHI 16:30 → 2NB 16:30 → ENRESERV 17:37 → ENTRNSPT 17:56 → 2NB 18:18 → CMPTRNSPT 18:24 → 2NB 04-04 07:45 → ENPENDDIS 04-05 17:00 → 2NB 04-05 18:22
PROVIDERS: Physical Medicine & Rehabilitation; Physician Assistant
PROC: 06H033Z Insertion of Infusion Device into Inferior Vena Cava, Percutaneous Approach (ICD-10-PCS; principal; 2018-04-05)
PROC: B5191ZA Fluoroscopy of Inferior Vena Cava using Low Osmolar Contrast, Guidance (ICD-10-PCS; 2018-04-05)
DX: A41.9 Sepsis, unspecified organism (principal); L89.153 Pressure ulcer of sacral region, stage 3; I12.0 Hypertensive chronic kidney disease with stage 5 chronic kidney disease or end stage renal disease; N18.5 Chronic kidney disease, stage 5; E87.2 Acidosis; N39.0 Urinary tract infection, site not specified; Z93.2 Ileostomy status; G20 Parkinson's disease; I48.91 Unspecified atrial fibrillation; R33.9 Retention of urine, unspecified; D63.1 Anemia in chronic kidney disease; N31.2 Flaccid neuropathic bladder, not elsewhere classified; B37.2 Candidiasis of skin and nail; B95.2 Enterococcus as the cause of diseases classified elsewhere; B96.5 Pseudomonas (aeruginosa) (mallei) (pseudomallei) as the cause of diseases classified elsewhere; E87.5 Hyperkalemia; Z93.4 Other artificial openings of gastrointestinal tract status; Z99.3 Dependence on wheelchair; Z90.79 Acquired absence of other genital organ(s); N40.1 Benign prostatic hyperplasia with lower urinary tract symptoms; Z88.0 Allergy status to penicillin; G47.33 Obstructive sleep apnea (adult) (pediatric)
CPT/HCPCS: 04007; 2NBP; 36592; 74176; 77001; 81001; 82436; 87040; 87086; 87147; 93005; 93010; 97110-GO; 97116-GO; 97161-GP; 97530-GO; J0131; J0713; J1642; J1644; J2001; J2185